=== PATIENT | female | born 1950 | race Caucasian/White ===

== ENCOUNTER → 2019-10-18 12:26 | Outpatient (CLI) | payer MEDICARE, SELFPAY ==
--- NOTE | ~2019-10-18 | MM_ITS ---
EXAMINATION: MM screening kaylynn BI w nancy HISTORY: Screening mammogram TECHNIQUE: Craniocaudal and mediolateral oblique 3-D tomosynthesis images were obtained and synthetic 2-D images were generated. CAD analysis was submitted and interpreted. COMPARISON: 06/04/2018, 02/17/2017, 01/19/2016 and lateral digital screening mammogram examinations BREAST PARENCHYMAL COMPOSITION: The breasts are almost entirely fatty. FINDINGS: There is no evidence of suspicious mass, calcification, or architectural distortion to sugg est malignancy in either breast. There has been no suspicious interval change. IMPRESSION: 1. No mammographic evidence of malignancy. 2. Recommend routine screening mammography in one year. BI-RADS Category 1: Negative Reviewed, dictated and finalized at location A. ILE SCREEN MAKER
== END ==
PROVIDERS: PCP Internal Medicine; Visit Provider Internal Medicine
DX: Z12.31 Encounter for screening mammogram for malignant neoplasm of breast (principal)
CPT/HCPCS: 77063; 77067

== ENCOUNTER 2020-03-17 10:08 | Outpatient (CLI) | payer MEDICARE, SELFPAY ==
--- NOTE | ~2020-03-17 | CT_ITS ---
EXAMINATION: CT lung screening DATE: 03/17/2020 10:29 INDICATION: Personal history of tobacco dependence, current smoker with 50 pack year history TECHNIQUE: Computed tomography (CT) of the chest was performed without intravenous contrast. The dose -length product (DLP) was 341.87 mGy-cm. Automated exposure control and iterative reconstruction tech Analiza were employed. COMPARISON: None FINDINGS: There is moderate emphysema. Multiple pulmonary nodules are identified. The largest measure s 6 mm in the right lower lobe on image 53. There is mild dependent atelectasis. No focal airspace op acities are identified. There is no pleural effusion or pneumothorax. No pathologically enlarged thor acic lymph nodes are identified. The heart size is normal. There is calcified coronary artery atheros clerosis. Subendocardial fat deposition in the heart can be seen in the setting of prior myocardial i nfarction. Punctate calcifications in otherwise normal appearing liver and spleen likely represent he aled granulomatous disease. There is mild thoracic spondylosis. IMPRESSION: 1. Lung-RADS category 3: Probably benign. Followup with noncontrast low-dose chest CT in 6 months is recommended. Reviewed, dictated and finalized at location A. IMPRESSION: 1. Lung-RADS category 3: Probably benign. Followup with noncontrast low-dose ch est CT in 6 months is recommended.
[2020-03-17 11:19] LABS: Alanine Aminotransferase 20 U/L (4-35); Alkaline Phosphatase 80 U/L (38-126); Anion Gap 10.3 mmol/L (7-16); Aspartate Amino Transferase 22 U/L (14-36); Bilirubin,Total 0.6 mg/dL (0.2-1.3); Blood Urea Nitrogen 12 mg/dL (7-17); Calcium 9.6 mg/dL (8.4-10.2); Carbon Dioxide 29 mmol/L (22-30); Chloride 103 mmol/L (98-107); Cholesterol 163 mg/dL (0-200); Estimated Glomerular Filt Rate > 60; Glucose 105 mg/dL (65-105); HDL Direct 42 mg/dL; Potassium 4.3 mmol/L (3.4-5.0); Sodium 138 mmol/L (137-145); Triglycerides 135 mg/dL (<150)
[2020-03-17 11:30] LABS: LDL Cholesterol Direct 92 mg/dL
== END 2020-03-17 10:09 | disposition home or self-care (01) ==
LOC: ANHIMG 10:10
PROVIDERS: PCP Internal Medicine; Visit Provider Internal Medicine
DX: I10 Essential (primary) hypertension (principal); Z72.0 Tobacco use; Z13.6 Encounter for screening for cardiovascular disorders; Z13.220 Encounter for screening for lipoid disorders; Z87.891 Personal history of nicotine dependence
CPT/HCPCS: 36415; 80053; 80061; G0297

== ENCOUNTER 2020-09-15 09:13 | Outpatient (CLI) | payer MEDICARE, SELFPAY ==
--- NOTE | ~2020-09-15 | CT_ITS ---
EXAMINATION: CT diagnostic chest wo con EXAM DATE: 09/15/2020 09:25 INDICATION: R91.1 - Solitary pulmonary nodule cough. TECHNIQUE: Spiral CT of the chest without contrast. Axial, coronal and sagittal images were reviewe d. Coronal maximum intensity pixel images of chest reviewed. The dose-length product (DLP) for this examination was 358.55 mGy-cm. The exposure was tailored according to patient size (auto mA exposur e control), and iterative reconstruction (ASIR) was used as additional dose reduction technique. Comp arison is made to prior examination from 03/17/2020. FINDINGS: Again there is pleural-based right lower lobe nodule, image 52, unchanged. Right middle lo be 5 mm nodule, image 67 unchanged. Scattered smaller pulmonary nodules also unchanged. There is mil d to moderate emphysema. Left anterior descending coronary artery stent or calcifications. Trace per icardial effusion. No pleural effusion. Tracheobronchial tree is patent. There is no mediastinal, hilar or axillary lymphadenopathy. There is no pneumothorax. Heart normal in size. Liver and sp lenic granulomata. The bones are unremarkable. IMPRESSION: 1. Stable scattered lung nodules likely granulomata. 2. Mild to moderate emphysema. Reviewed, dictated and finalized at location B. N RESOURCES EXECUTIVE
== END 2020-09-15 09:14 | disposition home or self-care (01) ==
LOC: ANHIMG 09:14
PROVIDERS: PCP Internal Medicine; Visit Provider Internal Medicine
DX: R91.1 Solitary pulmonary nodule (principal); J43.9 Emphysema, unspecified
CPT/HCPCS: 71250

== ENCOUNTER 2021-05-20 12:59 | Outpatient (CLI) | payer MEDICARE, SELFPAY ==
--- NOTE | ~2021-05-20 | DEXA_ITS ---
Bone Density Report Name: Yue Weinstein Age: 70 Sex: Female Ethnicity: White Date of : 1950 Indication: postmenopausal; Referring Provider: BRENT HAND Study: Bone densitometry was performed. Exam Date: May 20, 2021 Accession number: [id number] Bone Density: Region BMD T-score Z-score Classification AP Spine (L1-L4) 0.716 -3.0 -1.0 Osteoporosis Femoral Neck (Left) 0.528 -2.9 -1.2 Osteoporosis Total Hip (Left) 0.712 -1.9 -0.5 Osteopenia Total Hip Bilateral Avg 0.695 -2.1 -0.6 Osteopenia Femoral Neck (Right) 0.564 -2.6 -0.9 Osteoporosis Total Hip (Right) 0.678 -2.2 -0.7 Osteopenia World Health Organization criteria for BMD impression classify patients as: Normal (T-score at or above -1.0), Osteopenia (T-score between -1.0 and -2.5), or Osteoporosis (T-score at or below -2.5). 10-year Fracture Risk: FRAX not reported because: Some T-score for Spine Total or Hip Total or Femoral Neck at or below -2.5 Clinical Information Provided by Patient: Smokes Has used the following medications: Vitamin D, Calcium Patient maximum height was 63 Menopause Age: 52 No regular weight bearing exercise Does not regularly consume dairy products Onset of menses at age 18 Number of children 2 Impression: The patient has osteoporosis, based on the Total Spine T-score. The patient has risk factors, including: smoking. Discussion: INCREASED RISK OF FRACTURE. BONE DENSITY IS UNDESIRABLY LOW AT ONE OR MORE SKELETAL SITES, CONSISTENT WITH POSTMENOPAUSAL OSTEOPOROSIS. This patient's lowest T-score meets the World Health Organization's (WHO) criteria for osteoporosis at one or more sites (T-score -2.5 or below). In untreated patients, the risk of osteoporotic fracture increases approximately two-fold for each 1.0 SD decrease in T-score. Low bone density is not the only risk factor for fracture; also consider factors such as patient's age, frailty or poor health, risk of falling, risk of injury, previous osteoporotic fracture, family history of osteoporosis, cigarette smoking, low body weight, etc. Not everyone with low bone mineral density has osteoporosis; osteomalacia and other metabolic bone disorders should also be considered. Patients who have osteoporosis should be evaluated for specific diseases and conditions (secondary causes) that may cause or contribute to bone loss. The [place] [employer] Endocrinologists (AACE) and National Osteoporosis Foundation (NOF) recommend pharmacologic intervention for all postmenopausal women whose T-score is in this range. The patient should follow a healthful lifestyle (good nutrition with adequate calcium and vitamin D, and appropriate weight-bearing exercise). Follow-Up: Consider a repeat BMD and Vertebral Fracture Assessment (VFA) exam in 2 years or sooner if medically nec
== END 2021-05-20 13:00 | disposition home or self-care (01) ==
LOC: ANHIMG 13:01
PROVIDERS: PCP Internal Medicine; Visit Provider Internal Medicine
DX: Z78.0 Asymptomatic menopausal state (principal); M81.0 Age-related osteoporosis without current pathological fracture
CPT/HCPCS: 77080

== ENCOUNTER 2021-12-13 15:16 | Inpatient (IN) | payer MEDICARE, SELFPAY ==
[2021-12-13] VITALS (34 sets, daily range): BP systolic 126–182; BP diastolic 64–102; PULSE 49–66; RESP 14–31; TEMP 36.1–37.2; O2SAT 85–98; BMI 39.2
--- NOTE | ~2021-12-13 | XR_ITS ---
EXAMINATION: XR chest 1V portable DATE: 12/14/2021 05:39 INDICATION: New oxygen requirements. Cough. TECHNIQUE: frontal view of the chest was obtained. COMPARISON: Chest CT dated 09/15/2020 FINDINGS: Diffuse increased interstitial pattern and favor pulmonary edema over pneumonia. Mild streaky opaciti es in the right mid and bilateral lower lung zones which could represent either atelectasis or additi onal more prominent pulmonary edema. No pneumothorax or pleural effusion. The cardiomediastinal silho uette is within normal limits for AP technique with prominent left paracardial fat pad. IMPRESSION: 1. Increasing diffuse interstitial pattern and favor pulmonary edema over pneumonia. Reviewed, dictated and finalized at location A. IMPRESSION: 1. Increasing diffuse interstitial pattern and favor pulmonary edema over pneum onia.
--- NOTE | ~2021-12-13 | CT_ITS ---
EXAMINATION: CT abdomen pelvis w con DATE: 12/13/2021 19:46 INDICATION: abd pain, n/v TECHNIQUE: Computed tomography (CT) of the abdomen and pelvis was performed with 100 mL Omnipaque-350 intravenous contrast. Automated exposure control and iterative reconstruction technique were employe d. The dose-length product was 1294.59 mGy-cm. COMPARISON: None FINDINGS: Lower thorax: Coronary artery calcifications. Bibasilar scar/atelectasis. Emphysematous change. Liver: Granulomatous calcifications. Biliary/Gallbladder: Gallbladder is normal. No bile duct dilation. Spleen: Granulomatous calcifications. Pancreas: No mass or duct dilation. Adrenals:No mass. Kidneys: Several right renal hypodensities that are too small to characterize but most likely represe nt cysts. No calcification or hydronephrosis. GI tract: No small or large bowel dilation. Normal appendix. Diverticulosis without diverticulitis. Mesentery/Peritoneum: No ascites, mass, or free air. Retroperitoneum: No mass. Pelvis: Pelvic organs are within normal limits. Bones/Soft Tissues: Soft tissues and body wall unremarkable. No acute osseous finding. Additional Findings: None. IMPRESSION: No acute abdominopelvic process. Reviewed, dictated and finalized at location K.
[2021-12-13 15:54] LABS: Basophils Percent Auto 0.5 % (0.2-1.2); Eosinophils Percent Auto 0.5 % (0-4.4); Hematocrit 48.6 % (37.0-47.0); Hemoglobin 15.6 g/dL (12.0-15.0); Immature Granulocyte Absolute 0.03 K/mm3 (0.00-0.031); Immature Granulocyte Percent A 0.4 % (0-0.5); Lymphocytes Absolute Auto 0.97 K/mm3 (0.9-3.2); Lymphocytes Percent Auto 12.5 % (18.3-44.2); Mean Corpuscular HGB Conc 32.1 g/dl (32-36); Mean Corpuscular Hemoglobin 29.9 pg (26-34); Mean Corpuscular Volume 93.1 fl (80-100); Mean Platelet Volume 9.7 fl (7.4-10.4); Monocytes Absolute Auto 0.3 K/mm3 (0.1-0.6); Monocytes Percent Auto 4.2 % (2.6-8.5); Neutrophils Absolute Auto 6.4 K/mm3 (1.3-6.7); Neutrophils Percent Auto 81.9 % (45.5-73.1); Platelet Count Result 238 k/mm3 (150-375); Red Blood Count 5.22 M/mm3 (4.2-5.4); Red Cell Distribution Width 12.8 % (11.5-14.5); White Blood Count 7.8 K/mm3 (4.5-10.0)
--- NOTE | 2021-12-13 18:28 | ED.NAVMDI ---
HPI - Nausea/Vomiting/Diarrhea General Chief complaint: Nausea/Vomiting/Diarrhea Stated complaint: nausea, back pain Time Seen by Provider: 12/13/21 18:05 Source: RN notes reviewed History of Present Illness HPI Narrative: Patient presents emergency room from home for abdominal pain and vomiting. Patient states symptoms began 2 days ago. States she has abdominal pain across the upper abdomen described as aching and cramping in nature radiates through to her back states associated numerous episodes of nausea vomiting and been unable to keep anything down. She denies any fevers or chills chest pain, shortness of breath, diarrhea or any other symptoms. States she did not take any medication for the symptoms today Related Data Home Medications Medication Instructions Recorded Confirmed aspirin 81 mg tablet,delayed 81 mg PO DAILY 02/26/20 10/12/21 release Saccharomyces boulardii 250 mg 250 mg PO DAILY cap 03/26/21 10/12/21 capsule Allergies Allergy/AdvReac Type Severity Reaction Status Date / Time No Known Allergies Allergy Verified 10/12/21 11:03 Review of Systems Review of Systems: Gen.: Denies fevers or chills ENT: Denies congestion Respiratory: Denies shortness of breath or cough CV: Denies chest pain or palpitations GI: See HPI denies burning, urgency, frequency or hematuria Musculoskeletal: Denies back pain or muscle pain Neuro: Denies numbness, tingling, weakness or focal weakness Skin: Denies rash Except as documented, all other systems reviewed and negative [facility] [place] Past Medical History Medical History Chronic GERD Hypertension Lung nodule Social History Social History Smoking packs per day: 2 Smoking cigarettes per day: 40.0 Years smoked: 50 Smoking pack-years: 100.00 Tobacco type: cigarettes Second hand tobacco smoke exposure: Yes Smoking end date: 03/14/21 Alcohol intake: current Alcohol use details: Social Substance use: current Substance use type: marijuana Gender identity (if verbalized by the patient): Female Sexual Orientation (if Verbalized by the Patient): Straight or Heterosexual Spiritual care concerns: No Agree to blood products: Yes Exam Narrative: APPEARANCE: No acute distress, nontoxic, resting in bed HEENT: Normocephalic, atraumatic, OMM RESPIRATORY: No respiratory distress, clear to auscultation bilaterally with no rhonchi wheezing or rales CARDIOVASCULAR: RRR s murmur ABDOMINAL: Soft nondistended tender palpation epigastric and right upper quadrant left upper quadrant no tenderness in right lower quadrant left lower quadrant no rebound or guarding MUSCULOSKELETAl: Moves all extremities. No clubbing, cyanosis or edema. NEURO: Awake and alert. Following commands, speech normal, no focal deficits SKIN:: Warm, dry. Normal Color PSYCHIATRIC: Normal affect/mood Course Course Emergency Course: Patient continues to have nausea vomiting following Zofran and Phenergan will admit at this time Discussed Dr. Franks agrees with admission Discussed with patient and family results of workup and diagnosis. Discussed need for admission. Patient and family understand and agree to current treatment plan Vital Signs Vital signs: Vital Signs Temperature 97.0 F L 12/13/21 15:36 Pulse Rate 64 12/13/21 15:36 Respiratory Rate 16 12/13/21 15:36 Blood Pressure 176/88 H 12/13/21 15:36 Pulse Oximetry 93 12/13/21 15:36 Temperature 98.9 F 12/13/21 17:52 Pulse Rate 58 L 12/13/21 17:52 Respiratory Rate 20 12/13/21 17:52 Blood Pressure 163/85 H 12/13/21 17:52 Pulse Oximetry 90 12/13/21 17:52 MDM - Nausea/Vomiting/Diarrhea Lab Data Result diagrams: 12/13/21 15:47 12/13/21 18:31 Labs: Lab Results 12/13/21 12/13/21 12/13/21 Range/Units 15:47 18:31 18:31 WBC 7.8 (4.5-10.0) K/mm
[2021-12-13] MEDS: SODIUM CHLORIDE 0.9% IV 1,000 ML 999 ML IV CONT ×2 (18:38→21:42)
[2021-12-13] MEDS: ONDANSETRON INJ 4 MG/2 ML VIAL IV PUSH (18:38)
[2021-12-13 18:50] LABS: Add Urine Microscopic? YES; Appearance Urine Slightly Cloudy (Clear); Bilirubin Urine 1+ (Negative); Blood Urine Trace (Negative); Color Urine Dark Yellow (Yellow); Glucose Urine UA Negative (Negative); Ketones Urine 3+ mg/dL (Negative); Leukocyte Esterase Ur Negative LEU/UL (Negative); Nitrate Urine Negative (Negative); Protein Urine 2+ mg/dL (Negative); Specific Grav Ur 1.025 (1.001-1.035); Urobilinogen Urine 0.2 mg/dL (<2.0)
[2021-12-13 18:54] LABS: Alanine Aminotransferase 22 U/L (4-35); Albumin Level 4.3 g/dL (3.5-5.1); Alkaline Phosphatase 97 U/L (38-126); Anion Gap 10 mmol/L (8-16); Aspartate Amino Transferase 29 U/L (14-36); Bilirubin,Total 0.9 mg/dL (0.2-1.3); Blood Urea Nitrogen 10 mg/dL (7-17); Calcium 9.3 mg/dL (8.4-10.2); Carbon Dioxide 26 mmol/L (22-30); Chloride 102 mmol/L (98-107); Estimated CRCL calculation 71 ml/min; Estimated Glomerular Filt Rate > 60; Glucose 172 mg/dL (65-110); Lipase 30 U/L (23-300); Potassium 3.9 mmol/L (3.4-5.0); Sodium 138 mmol/L (137-145)
[2021-12-13 19:37] LABS: Bacteria Urine 1+ /hpf; Mucus Urine Moderate /lpf; Squamous Epithelial Cell Urine Rare /hpf (Few); WBC Urine 0-3 /hpf
--- NOTE | 2021-12-13 21:10 | ECG_ITS ---
Measurements Intervals [place] Rate: 63 P: 62 NM: 188 QRS: -26 QRSD: 116 T: 53 QT: 439 QTc: 452 Interpretive Statements SINUS RHYTHM WITH SINUS ARRHYTHMIA INCOMPLETE RIGHT BUNDLE BRANCH BLOCK BORDERLINE T WAVE ABNORMALITY- ANTERIOR LEADS BASELINE ARTIFACT- I, II, III, AVR, AVL, AVF, V4 BORDERLINE ECG Electronically Signed On 12-14-2021 6:04:50 CDT by Richard Fowler D.O.
[2021-12-13] MEDS: PROMETHAZINE HCL 25 MG/ML AMPUL 12.5 MG IV PUSH (21:41)
[2021-12-13] MEDS: SODIUM CHLORIDE 0.9% IV 100 ML 500 ML (21:43)
[2021-12-13] MEDS: PANTOPRAZOLE SODIUM IV 40 MG VIAL IV PUSH (21:45)
--- NOTE | 2021-12-13 23:50 | ADMGEN ---
This patient, Yue Weinstein, was admitted to 3 [facility] Room 331-01. Patient/family oriented to hospital policies and general routines including ID bracelet, bed and alarms, visiting hours, pain management, procedures, bathroom and other care routines, personal items, smoking policy, room service/diet, and visiting hours. Information on how to activate the Rapid Response Team has been discussed. Patient/Family are encouraged to report perceived risks to care and to ask questions if they do not understand what they are told or what they should do.
[2021-12-14] VITALS (8 sets, daily range): BP systolic 135–151; BP diastolic 62–72; PULSE 60–64; RESP 18–20; TEMP 37–38.2; O2SAT 83–96
[2021-12-14] MEDS: SODIUM CHLORIDE 0.9% IV 1,000 ML 125 ML IV CONT ×3 (00:42→17:51)
--- NOTE | 2021-12-14 01:46 | PM.IMHP ---
H&P: HPI History of Present Illness Date/Time: 12/14/21 01:46 Chief Complaint: Nausea/Vomiting Narrative: 71 yo F PMHx of morbid obesity, depression/anxiety, tobacco abuse, marijuana use, HTN, GERD, insomnia. Presents with n/v since 12/11. Patient states she woke up feeling nauseous, and then threw up after eating that day. She has thrown up food a total of four times, and then after that it has just been dry-heaving and bile looking fluid. She does admit to smoking marijuana daily, and had used some on Monday and Monday. Patient denies fevers/chills, SOB, cough, CP, palpitations, diarrhea, constipation, dysuria, hematuria. Admits to epigastric tenderness. In ED, patients labs unremarkable. CT A/P did not show any acute process. EKG NSR. Patient was given IVF and placed on mIVF. Was also given zofran and compazine. Patient had a vomiting episode in the ED. Review of Systems Review of Systems: All systems reviewed & are unremarkable except as noted in HPI and below PMFSH Past Medical History Medical History Chronic GERD Hypertension Lung nodule Social History Social History Smoking packs per day: 1.5 Smoking cigarettes per day: 30.0 Years smoked: 50 Smoking pack-years: 75.00 Smoking status: Heavy tobacco smoker Tobacco type: cigarettes Second hand tobacco smoke exposure: Yes Smoking end date: 03/14/21 Alcohol intake: never Alcohol use details: Social Substance use: current Substance use type: marijuana Gender identity (if verbalized by the patient): Female Sexual Orientation (if Verbalized by the Patient): Straight or Heterosexual Spiritual care concerns: No Agree to blood products: Yes Meds Home Medications and Allergies Home Medications Medication Instructions Recorded Confirmed Type aspirin 81 mg tablet,delayed 81 mg PO DAILY 02/26/20 12/13/21 History release lisinopril 10 1 tablet PO DAILY #90 tablet 09/08/21 12/13/21 Rx mg-hydrochlorothiazide 12.5 mg tablet loratadine 10 mg capsule 10 mg PO DAILY PRN #90 cap 09/29/21 12/13/21 Rx zolpidem 10 mg tablet 10 mg PO QHS #30 tablet 09/29/21 12/13/21 Rx naproxen 500 mg tablet 500 mg PO BID PRN #60 tablet 11/19/21 12/13/21 Rx cholecalciferol (vitamin D3) 50 50 mcg PO DAILY #90 tablet 12/10/21 12/13/21 Rx mcg (2,000 unit) tablet escitalopram oxalate 5 mg PO DAILY 12/13/21 12/13/21 History omeprazole 40 mg PO DAILY 12/13/21 12/13/21 History polyethylene glycol 3350 [Miralax] 17 g PO DAILY PRN 12/13/21 12/13/21 History Allergies Allergy/AdvReac Type Severity Reaction Status Date / Time No Known Allergies Allergy Verified 10/12/21 11:03 Vital Signs Vital Signs - 24 hr 12/13/21 15:36 12/13/21 17:50 12/13/21 17:52 Temperature 97.0 F L 98.9 F Pulse Rate 64 56 L Respiratory Rate 16 25 H Blood Pressure 176/88 H 163/85 H Pulse Oximetry 93 86 L 89 L 12/13/21 18:00 12/13/21 18:02 12/13/21 18:15 Temperature Pulse Rate 56 L 49 L 58 L Respiratory Rate 29 H 27 H 26 H Blood Pressure 154/93 H Pulse Oximetry 96 96 94 12/13/21 18:17 12/13/21 18:48 12/13/21 19:00 Temperature Pulse Rate 54 L 61 Respiratory Rate 24 H 14 Blood Pressure 158/66 H Pulse Oximetry 94 89 L 92 12/13/21 19:15 12/13/21 19:17 12/13/21 19:48 Temperature Pulse Rate 62 61 Respiratory Rate 26 H 17 Blood Pressure 132/102 H Pulse Oximetry 91 91 89 L 12/13/21 20:00 12/13/21 20:02 12/13/21 20:15 Temperature Pulse Rate Respiratory Rate Blood Pressure 156/64 H Pulse Oximetry 89 L 88 L 90 12/13/21 20:17 12/13/21 20:30 12/13/21 20:32 Temperature Pulse Rate Respiratory Rate Blood Pressure 129/71 126/79 Pulse Oximetry 90 89 L 89 L 12/13/21 20:45 12/13/21 20:47 12/13/21 21:48 Temperature Pulse Rate Respiratory Rate Blood Pressure 139/68 Pulse Oximet
[2021-12-14] MEDS: ONDANSETRON INJ 4 MG/2 ML VIAL IV PUSH ×3 (02:19→20:24)
[2021-12-14] MEDS: ZOLPIDEM TARTRATE (*CRX) 5 MG TABLET 10 MG PO ×2 (02:19→20:24)
[2021-12-14 06:11] LABS: Basophils Percent Auto 0.2 % (0.2-1.2); Hematocrit 42.1 % (37.0-47.0); Hemoglobin 13.8 g/dL (12.0-15.0); Immature Granulocyte Absolute 0.04 K/mm3 (0.00-0.031); Immature Granulocyte Percent A 0.3 % (0-0.5); Lymphocytes Absolute Auto 0.97 K/mm3 (0.9-3.2); Lymphocytes Percent Auto 8.2 % (18.3-44.2); Mean Corpuscular HGB Conc 32.8 g/dl (32-36); Mean Corpuscular Hemoglobin 29.9 pg (26-34); Mean Corpuscular Volume 91.3 fl (80-100); Mean Platelet Volume 10.3 fl (7.4-10.4); Monocytes Absolute Auto 0.7 K/mm3 (0.1-0.6); Monocytes Percent Auto 5.8 % (2.6-8.5); Neutrophils Absolute Auto 10.1 K/mm3 (1.3-6.7); Neutrophils Percent Auto 85.5 % (45.5-73.1); Platelet Count Result 245 k/mm3 (150-375); Red Blood Count 4.61 M/mm3 (4.2-5.4); Red Cell Distribution Width 12.8 % (11.5-14.5); White Blood Count 11.8 K/mm3 (4.5-10.0)
[2021-12-14 06:21] LABS: Alanine Aminotransferase 30 U/L (4-35); Albumin Level 3.6 g/dL (3.5-5.1); Alkaline Phosphatase 79 U/L (38-126); Anion Gap 7 mmol/L (8-16); Aspartate Amino Transferase 32 U/L (14-36); Bilirubin,Total 0.5 mg/dL (0.2-1.3); Blood Urea Nitrogen 8 mg/dL (7-17); Calcium 8.5 mg/dL (8.4-10.2); Carbon Dioxide 25 mmol/L (22-30); Chloride 104 mmol/L (98-107); Estimated CRCL calculation 71 ml/min; Estimated Glomerular Filt Rate > 60; Glucose 135 mg/dL (65-110); Potassium 3.7 mmol/L (3.4-5.0); Sodium 136 mmol/L (137-145)
[2021-12-14 08:01] LABS: Hemoglobin A1C 5.5 % (<5.7)
[2021-12-14] MEDS: ENOXAPARIN 40 MG/0.4 ML SYRINGE SUB-Q (08:37)
[2021-12-14] MEDS: PANTOPRAZOLE SODIUM IV 40 MG VIAL IV PUSH (08:39)
[2021-12-14] MEDS: hydroCHLOROthiazide 12.5 MG CAPSULE PO (09:26)
[2021-12-14] MEDS: ESCITALOPRAM OXALATE 5 MG TABLET PO (09:26)
[2021-12-14] MEDS: ASPIRIN 81 MG ENTERIC TABLET PO (09:26)
[2021-12-14] MEDS: CHOLECALCIFEROL 1,000 UNITS TABLET 2000 UNITS PO (09:27)
[2021-12-14] MEDS: lisinopriL 10 MG TABLET PO (09:27)
--- NOTE | 2021-12-14 11:26 | PM.EVENT ---
Event Note Event Note Event Note: Same Day follow up rounding note pt admitted for intractable nausea and vomiting suspect cannabinoid induced hyperemesis syndrome. Will keep zofran prn and also add capsaicin cream to abdomen BID prn. Advised marijuana cessation. Will continue mIVF NS 125 cc/hr and advance diet as tolerated continue lexapro continue IV protonix continue lisinopril/HCTZ continue ambien pt doing ok still w nausea will try phenergan -> pt reports improvement of nausea cont current care possible dc home tomorrow
[2021-12-14] MEDS: PROMETHAZINE HCL 25 MG/ML AMPUL 12.5 MG IV PUSH ×2 (12:09→16:13)
[2021-12-14] MEDS: TOLNAFTATE 1% POWDER 45 GM BTL 1 APPLIC TOPICAL (20:24)
[2021-12-15] MEDS: SODIUM CHLORIDE 0.9% IV 1,000 ML 125 ML IV CONT ×3 (02:38→23:19)
[2021-12-15 04:58] VITALS: BP 157/77; PULSE 67; RESP 18; TEMP 37.4; O2SAT 93
[2021-12-15 05:58] LABS: Basophils Percent Auto 0.2 % (0.2-1.2); Hematocrit 40.5 % (37.0-47.0); Hemoglobin 13.4 g/dL (12.0-15.0); Immature Granulocyte Absolute 0.11 K/mm3 (0.00-0.031); Immature Granulocyte Percent A 0.7 % (0-0.5); Lymphocytes Absolute Auto 1.27 K/mm3 (0.9-3.2); Lymphocytes Percent Auto 8.7 % (18.3-44.2); Mean Corpuscular HGB Conc 33.1 g/dl (32-36); Mean Corpuscular Hemoglobin 30.4 pg (26-34); Mean Corpuscular Volume 91.8 fl (80-100); Monocytes Absolute Auto 1.3 K/mm3 (0.1-0.6); Monocytes Percent Auto 9.1 % (2.6-8.5); Neutrophils Absolute Auto 11.9 K/mm3 (1.3-6.7); Neutrophils Percent Auto 81.3 % (45.5-73.1); Platelet Count Result 221 k/mm3 (150-375); Red Blood Count 4.41 M/mm3 (4.2-5.4); Red Cell Distribution Width 12.7 % (11.5-14.5); White Blood Count 14.7 K/mm3 (4.5-10.0)
[2021-12-15 06:09] LABS: Lactic Acid Reflex 0.9 mmol/L (0.7-2.0)
[2021-12-15 06:12] LABS: Anion Gap 3 mmol/L (8-16); Blood Urea Nitrogen 11 mg/dL (7-17); Calcium 8.5 mg/dL (8.4-10.2); Carbon Dioxide 29 mmol/L (22-30); Chloride 102 mmol/L (98-107); Estimated CRCL calculation 71 ml/min; Estimated Glomerular Filt Rate > 60; Glucose 113 mg/dL (65-110); Lipase 79 U/L (23-300); Magnesium 1.8 mg/dL (1.6-2.3); Potassium 3.6 mmol/L (3.4-5.0); Sodium 134 mmol/L (137-145)
[2021-12-15 08:40] VITALS: O2SAT 93
[2021-12-15] MEDS: TOLNAFTATE 1% POWDER 45 GM BTL 1 APPLIC TOPICAL ×2 (08:44→22:06)
[2021-12-15] MEDS: PANTOPRAZOLE SODIUM IV 40 MG VIAL IV PUSH ×2 (08:44→16:44)
[2021-12-15 08:47] VITALS: O2SAT 94
[2021-12-15] MEDS: ONDANSETRON INJ 4 MG/2 ML VIAL IV PUSH (08:48)
--- NOTE | 2021-12-15 10:06 | PM.IMPN ---
Progress Note: A&P Assessment and Plan (1) Intractable nausea and vomiting: Code(s): R11.2 - Nausea with vomiting, unspecified Status: Acute (2) Abdominal pain, acute, epigastric: Code(s): R10.13 - Epigastric pain Status: Acute (3) Depression: Code(s): F32.A - Depression, unspecified Status: Acute (4) Chronic low back pain: Code(s): M54.5 - Low back pain; G89.29 - Other chronic pain Status: Acute (5) Chronic GERD: Code(s): K21.9 - Gastro-esophageal reflux disease without esophagitis Status: Acute (6) Hypertension: Code(s): I10 - Essential (primary) hypertension Status: Acute (7) BMI 40.0-44.9, adult: Code(s): Z68.41 - Body mass index [BMI] 40.0-44.9, adult Status: Acute (8) Tobacco abuse: Code(s): Z72.0 - Tobacco use Status: Acute (9) Insomnia: Code(s): G47.00 - Insomnia, unspecified Status: Acute Additional Plan 12/14/21 pt admitted for intractable nausea and vomiting suspect cannabinoid induced hyperemesis syndrome. Will keep zofran prn and also add capsaicin cream to abdomen BID prn. Advised marijuana cessation. Will continue mIVF NS 125 cc/hr and advance diet as tolerated continue lexapro continue IV protonix continue lisinopril/HCTZ continue ambien pt doing ok still w nausea will try phenergan -> pt reports improvement of nausea cont current care possible dc home tomorrow 12/15/21 cont w nausea and intolerance to PO febrile overnight blood cultures add zosyn add carafate cont supportive care Subjective Date/time seen: 12/15/21 10:06 pt not feeling better, noted to have febrile episode overnight Exam Narrative: APPEARANCE: No acute distress, ill appearing, resting in bed HEENT: Normocephalic, atraumatic, MMM RESPIRATORY: No respiratory distress, clear to auscultation bilaterally with no rhonchi wheezing or rales CARDIOVASCULAR:S1S2 RRR ABDOMINAL: epigastric tenderness MUSCULOSKELETAl: Moves all extremities. No clubbing, cyanosis or edema. NEURO: Awake and alert. Following commands, speech normal, no focal deficits SKIN:: Warm, dry. Normal Color PSYCHIATRIC: Normal affect/mood Objective Data Vital Signs Vital Signs: Vital Signs - 24 hr 12/14/21 14:00 12/14/21 20:00 12/14/21 22:00 Temperature 100.8 F H 99.5 F Pulse Rate 60 64 Respiratory Rate 20 18 Blood Pressure 140/69 135/62 Pulse Oximetry 93 95 95 12/15/21 04:58 12/15/21 08:47 Temperature 99.4 F Pulse Rate 67 Respiratory Rate 18 Blood Pressure 157/77 H Pulse Oximetry 93 94 Intake/Output Intake/Output: Intake & Output 12/12/21 12/13/21 12/14/21 12/15/21 23:59 23:59 23:59 23:59 Intake Total 2200 2990 1050 Output Total 300 Balance 2200 2690 1050 Meds/Results Medications: Active Medications Generic Name Dose Route Start Last Admin Trade Name Freq PRN Reason Stop Dose Admin Aspirin 81 mg 12/14/21 09:00 12/14/21 09:26 Aspirin 81 Mg Enteric Tablet PO 81 mg DAILY VIANEY Administration Capsaicin 1 applic 12/14/21 01:41 Capsaicin 0.025% Cream 60 Gm Tube TOPICAL Q8H PRN pain Enoxaparin Sodium 40 mg 12/14/21 09:00 12/14/21 08:37 Enoxaparin 40 Mg/0.4 Ml Syringe SUB-Q 40 mg DAILY VIANEY Administration Escitalopram Oxalate 5 mg 12/14/21 09:00 12/14/21 09:26 Escitalopram Oxalate 5 Mg Tablet PO 5 mg DAILY VIANEY Administration Hydrochlorothiazide 12.5 mg 12/14/21 09:00 12/14/21 09:26 Hydrochlorothiazide 12.5 Mg Capsule PO 12.5 mg QAM VIANEY Administration Sodium Chloride 1,000 mls @ 125 mls/hr 12/13/21 21:10 12/15/21 02:38 Normal Saline Iv IV CONT 125 mls/hr .Q8H VIANEY Administration Piperacillin/Tazobactam/Dextrose 3.375 gm in 50 mls @ 100 mls/hr 12/15/21 10:05 Zosyn 3.375 Gm/D5w 50ml Pm IVPB Q6HR VIANEY Lisinopril 10 mg 12/14/21 09:00 12/14/21 09:27 Lisinopril 10 Mg Tablet PO 10 mg QAM VIANEY Administration Ond
[2021-12-15] MEDS: ENOXAPARIN 40 MG/0.4 ML SYRINGE SUB-Q (10:13)
[2021-12-15] MEDS: PROMETHAZINE HCL 25 MG/ML AMPUL 12.5 MG IV PUSH (10:18)
[2021-12-15 10:34] LABS: CRP 1.9 mg/dL (<1.0)
[2021-12-15 10:56] LABS: Erythrocyte Sedimentation Rate 12 mm/hr (0-20)
[2021-12-15] MEDS: lisinopriL 10 MG TABLET PO (11:55)
[2021-12-15] MEDS: ASPIRIN 81 MG ENTERIC TABLET PO (11:55)
[2021-12-15] MEDS: hydroCHLOROthiazide 12.5 MG CAPSULE PO (11:55)
[2021-12-15] MEDS: SUCRALFATE SUSP 100 MG/ML 10 ML UDC 1000 MG PO ×3 (11:55→22:06)
[2021-12-15] MEDS: ESCITALOPRAM OXALATE 5 MG TABLET PO (11:55)
[2021-12-15] MEDS: CHOLECALCIFEROL 1,000 UNITS TABLET 2000 UNITS PO (11:55)
[2021-12-15 14:00] VITALS: BP 143/66; PULSE 88; RESP 18; TEMP 37.6; O2SAT 93
[2021-12-15 22:00] VITALS: BP 163/73; PULSE 60; RESP 20; TEMP 37.7; O2SAT 91
[2021-12-15] MEDS: ZOLPIDEM TARTRATE (*CRX) 5 MG TABLET 10 MG PO (22:06)
[2021-12-15 22:13] VITALS: TEMP 36.8
[2021-12-15 22:57] LABS: SARS-CoV-2 RNA PCR Negative
[2021-12-16 05:44] VITALS: BP 129/87; PULSE 114; RESP 20; TEMP 37; O2SAT 90
[2021-12-16] MEDS: SUCRALFATE SUSP 100 MG/ML 10 ML UDC 1000 MG PO ×2 (06:01→12:17)
[2021-12-16 06:34] LABS: Basophils Percent Auto 0.3 % (0.2-1.2); Eosinophils Percent Auto 0.1 % (0-4.4); Hematocrit 40.7 % (37.0-47.0); Hemoglobin 13.8 g/dL (12.0-15.0); Immature Granulocyte Percent A 0.7 % (0-0.5); Lymphocytes Absolute Auto 1.49 K/mm3 (0.9-3.2); Lymphocytes Percent Auto 10.9 % (18.3-44.2); Mean Corpuscular HGB Conc 33.9 g/dl (32-36); Mean Corpuscular Hemoglobin 30.7 pg (26-34); Mean Corpuscular Volume 90.4 fl (80-100); Mean Platelet Volume 10.1 fl (7.4-10.4); Monocytes Absolute Auto 1.4 K/mm3 (0.1-0.6); Monocytes Percent Auto 9.9 % (2.6-8.5); Neutrophils Absolute Auto 10.7 K/mm3 (1.3-6.7); Neutrophils Percent Auto 78.1 % (45.5-73.1); Platelet Count Result 220 k/mm3 (150-375); Red Cell Distribution Width 12.4 % (11.5-14.5); White Blood Count 13.7 K/mm3 (4.5-10.0)
[2021-12-16 06:49] LABS: Anion Gap 5 mmol/L (8-16); Blood Urea Nitrogen 11 mg/dL (7-17); Calcium 8.5 mg/dL (8.4-10.2); Carbon Dioxide 31 mmol/L (22-30); Chloride 96 mmol/L (98-107); Estimated CRCL calculation 71 ml/min; Estimated Glomerular Filt Rate > 60; Glucose 106 mg/dL (65-110); Magnesium 1.8 mg/dL (1.6-2.3); Potassium 3.2 mmol/L (3.4-5.0); Sodium 132 mmol/L (137-145)
[2021-12-16 08:00] VITALS: O2SAT 93
[2021-12-16] MEDS: lisinopriL 10 MG TABLET PO (09:47)
[2021-12-16] MEDS: PANTOPRAZOLE SODIUM IV 40 MG VIAL IV PUSH (09:47)
[2021-12-16] MEDS: hydroCHLOROthiazide 12.5 MG CAPSULE PO (09:47)
[2021-12-16] MEDS: ESCITALOPRAM OXALATE 5 MG TABLET PO (09:47)
[2021-12-16] MEDS: CHOLECALCIFEROL 1,000 UNITS TABLET 2000 UNITS PO (09:47)
[2021-12-16] MEDS: ASPIRIN 81 MG ENTERIC TABLET PO (09:48)
[2021-12-16] MEDS: ENOXAPARIN 40 MG/0.4 ML SYRINGE SUB-Q (09:48)
[2021-12-16] MEDS: TOLNAFTATE 1% POWDER 45 GM BTL 1 APPLIC TOPICAL (09:54)
--- NOTE | 2021-12-16 12:49 | PM.DS ---
DS: Admitting Diagnosis Discharge Date 12/16/21 Admitting Diagnosis (1) Intractable nausea and vomiting: Code(s): R11.2 - Nausea with vomiting, unspecified Status: Acute (2) Depression: Code(s): F32.A - Depression, unspecified Status: Acute (3) Chronic GERD: Code(s): K21.9 - Gastro-esophageal reflux disease without esophagitis Status: Acute (4) Hypertension: Code(s): I10 - Essential (primary) hypertension Status: Acute (5) Insomnia: Code(s): G47.00 - Insomnia, unspecified Status: Acute DS: Discharge Diagnosis Discharge Diagnosis (1) Intractable nausea and vomiting: Code(s): R11.2 - Nausea with vomiting, unspecified Status: Acute (2) Abdominal pain, acute, epigastric: Code(s): R10.13 - Epigastric pain Status: Acute (3) Intertrigo: Code(s): L30.4 - Erythema intertrigo Status: Acute (4) Hypertension: Code(s): I10 - Essential (primary) hypertension Status: Acute (5) BMI 40.0-44.9, adult: Code(s): Z68.41 - Body mass index [BMI] 40.0-44.9, adult Status: Acute (6) Chronic GERD: Code(s): K21.9 - Gastro-esophageal reflux disease without esophagitis Status: Acute (7) Tobacco abuse: Code(s): Z72.0 - Tobacco use Status: Acute (8) Depression: Code(s): F32.A - Depression, unspecified Status: Acute (9) Gastritis: Code(s): K29.70 - Gastritis, unspecified, without bleeding Status: Acute DS: Summary Hospital Course Reason for hospitalization: intractable vomiting Hospital Course: 71 yo F admitted w N/V orignially believed to be hyperemesis sx associated w marijuana use. Unfortunately, pt developed fever on day 2 of hospitalization and her symptoms had not improved w IVFs, antiemetics, and supportive care. She was placed on Zosyn with rapid resolution of her symptoms. blood cultures grew skin contaminent, CT abd pelvis w/o acute findings, and CXR showed edema or PNA (pt without resp symptoms). Given her rapid response to Zosyn and down trending of WBCs, she was subsequently discharged home in stable condition on Augmentin to complete 10day course and to follow up w her PCP for ongoing care. Status at Discharge Functional status at discharge: independent ambulation Overall status at discharge: patient is back to baseline Time Spent with Patient Time attestation: Total time spent providing and/or coordinating discharge services: Time spent: Greater than 30 minutes Exam Narrative: APPEARANCE: No acute distress, ill appearing, resting in bed, obese HEENT: Normocephalic, atraumatic, MMM RESPIRATORY: No respiratory distress, clear to auscultation bilaterally with no rhonchi wheezing or rales CARDIOVASCULAR:S1S2 RRR ABDOMINAL: epigastric tenderness MUSCULOSKELETAL: Moves all extremities. No clubbing, cyanosis or edema. NEURO: Awake and alert. Following commands, speech normal, no focal deficits SKIN:: Warm, dry. Normal Color PSYCHIATRIC: Normal affect/mood DS: Data Data Completed and Pending Labs on day of discharge: Labs from last 24 hours 12/16/21 12/16/21 12/15/21 06:11 06:11 22:15 WBC 13.7 H RBC 4.50 Hgb 13.8 Hct 40.7 MCV 90.4 MCH 30.7 MCHC 33.9 RDW 12.4 Plt Count 220 MPV 10.1 Immature Gran % (Auto) 0.7 H Neut % (Auto) 78.1 H Lymph % (Auto) 10.9 L [place] % (Auto) 9.9 H Eos % (Auto) 0.1 Baso % (Auto) 0.3 Lymph # (Auto) 1.49 [place] # (Auto) 1.4 H Eos # (Auto) 0.0 Baso # (Auto) 0.0 Abs Immat Gran (auto) 0.10 H Absolute Neuts (auto) 10.7 H Absolute Nucleated RBC 0.0 Nucleated RBC % 0.0 Sodium 132 L Potassium 3.2 L Chloride 96 L Carbon Dioxide 31 H Anion Gap 5 L BUN 11 Creatinine 0.70 Estim Creat Clear Calc 71 Estimated GFR > 60 Glucose 106 Calcium 8.5 Magnesium 1.8 SARS-CoV-2 RNA (RT-PCR) Negative Prelim
--- NOTE | 2021-12-16 15:47 | PCCCNOTE ---
On 12/16/21, the student, [Sneha Begum], provided care and completed [facility] documentation on this patient. I have reviewed the student's documentation and agree with the findings.
== END 2021-12-16 14:05 | disposition home or self-care (01) | DRG 392 ==
LOC: ANHED 21:25 → ANH3MEDSUR 21:55
PROVIDERS: Hospitalist; Admitting Provider Internal Medicine; Emergency Provider Emergency Medicine; PCP Internal Medicine; Visit Provider Internal Medicine
DX: R11.2 Nausea with vomiting, unspecified (principal); Z68.41 Body mass index [BMI] 40.0-44.9, adult; F32.A Depression, unspecified; K21.9 Gastro-esophageal reflux disease without esophagitis; I10 Essential (primary) hypertension; G47.00 Insomnia, unspecified; F12.99 Cannabis use, unspecified with unspecified cannabis-induced disorder; K29.70 Gastritis, unspecified, without bleeding; L30.4 Erythema intertrigo; F17.210 Nicotine dependence, cigarettes, uncomplicated; Z79.82 Long term (current) use of aspirin; Z79.899 Other long term (current) drug therapy
CPT/HCPCS: 36415; 71045; 74177; 80048; 80053; 81001; 83036; 83605; 83690; 83735; 85025; 85652; 86140; 87040; 87147; 87181; 87186; 93005; 96361; 96365; 96372; 96375; 96376; 99285; A9270; C9113; C9803; G0378; J0131; J1650; J2405; J2543; J2550; J7030; U0003; U0005

== ENCOUNTER 2022-01-09 14:55 | Emergency (ER) | payer MEDICARE, SELFPAY ==
[2022-01-09] VITALS (20 sets, daily range): BP systolic 138–185; BP diastolic 81–104; PULSE 79–99; RESP 10–30; TEMP 36.8; O2SAT 81–97
--- NOTE | ~2022-01-09 | CT_ITS ---
EXAMINATION: CT BRAIN W/O DATE: 01/09/2022 15:37 INDICATION: Dizziness and headaches TECHNIQUE: Computed tomography (CT) of the head was performed without intravenous contrast. The dose- length product was 529.67 mGy-cm. Automated exposure control and iterative reconstruction technique w ere employed. COMPARISON: No prior studies for comparison. FINDINGS: Normal brain parenchymal volume for age. Normal lopez-white differentiation. No acute intrac ranial hemorrhage, infarction, mass or mass effect. No ventriculomegaly or midline shift. Midline sagittal images demonstrate a normal corpus callosum, c raniovertebral junction and sella turcica. Basilar cisterns are patent. Sinuses are unremarkable. Small left mastoid effusion. No depressed skull fractures. IMPRESSION: 1. No acute intracranial abnormality. Reviewed, dictated and finalized at location A.
--- NOTE | 2022-01-09 15:25 | ECG_ITS ---
Measurements Intervals [place] Rate: 77 P: 55 W[place]: 181 QRS: -70 QRSD: 136 T: 22 QT: 420 QTc: 477 Interpretive Statements SINUS RHYTHM RIGHT BUNDLE BRANCH BLOCK LEFT ANTERIOR FASCICULAR BLOCK BASELINE ARTIFACT- I, II, III, AVR, AVL, AVF, V1 ABNORMAL ECG Electronically Signed On 01-09-2022 20:24:33 CDT by Richard Fowler D.O.
--- NOTE | 2022-01-09 15:27 | ED.DIZZY ---
HPI - Dizziness General Chief Complaint: Dizziness <CLAUDE Conte Last Filed: 01/09/22 19:02> Stated Complaint: n/v, dizziness, ear pain <CLAUDE Conte Last Filed: 01/09/22 19:02> Time Seen by Provider: 01/09/22 15:09 <CLAUDE Conte Last Filed: 01/09/22 19:02> History of Present Illness HPI Narrative: Patient is a 71-year-old female with a history of high blood pressure, gastritis here for evaluation of dizziness over the past month. Patient states that the dizziness is episodic in nature, it is associated with nausea and vomiting. Dizziness is only present when she goes from lying down to standing. She reports room spinning sensation . Patient reports about 4 episodes of of dry heaving today, and one episode of vomiting non-bloody emesis. Dry heaving is associated with epigastric discomfort, but none at rest. She has attempted Compazine as prescribed by her PCP without much relief. That she has also developed some bilateral ear pain over the past week and endorses chronic tinnitus. Denies preceding illness, weakness, changes to speech, headaches, syncope, chest pain, shortness of breath, dysuria, hematuria, urgency, low back pain. Patient was admitted here last month for evaluation of abdominal pain and nausea/vomiting, CT abdomen pelvis was unremarkable, she did spike a fever during her hospital stay, but she was ultimately discharged with oral antibiotics. States that her abdominal pain has improved after following a BRAT diet and completing her course of antibiotics. <CLAUDE Conte Last Filed: 01/09/22 19:02> Related Data Home Medications: Home Medications Medication Instructions Recorded Confirmed aspirin 81 mg tablet,delayed 81 mg PO DAILY 02/26/20 12/22/21 release (Aspir-) escitalopram oxalate 10 mg tablet 5 mg PO DAILY 12/13/21 12/22/21 omeprazole 40 mg capsule,delayed 40 mg PO DAILY 12/13/21 12/22/21 release polyethylene glycol 3350 17 gram 17 g PO DAILY PRN Constipation 12/13/21 12/22/21 oral powder packet (Miralax) <CLAUDE Conte Last Filed: 01/09/22 19:02> Allergies/Adverse Reactions: Allergies Allergy/AdvReac Type Severity Reaction Status Date / Time No Known Allergies Allergy Verified 01/09/22 16:53 <Vianney De La Cruz PA-C - Last Filed: 01/09/22 19:02> Review of Systems Review of Systems: Gen: Denies fevers or chills Eyes: Denies eye pain or visual change ENT: Reports ear pain. Denies congestion Respiratory: Denies shortness of breath or cough CV: Denies chest pain or palpitations GI: Reports nausea and vomiting. Denies Diarrhea denies burning, urgency, frequency or hematuria Musculoskeletal: Denies back pain or muscle pain Neuro: Dizziness. Denies numbness, tingling, weakness or focal weakness Skin: Denies rash Except as documented, all other systems reviewed and negative <Vianney De La Cruz PA-C - Last Filed: 01/09/22 19:02> [facility] Past Medical History Medical History: Medical History Chronic GERD Hypertension Lung nodule <Vianney De La Cruz PA-C - Last Filed: 01/09/22 19:02> Social History Social History: Social History Smoking packs per day: 1.5 Smoking cigarettes per day: 30.0 Years smoked: 50 Smoking pack-years: 75.00 Smoking status: Former smoker (quit on 12/15/21 with hospital admission) Tobacco type: cigarettes Second hand tobacco smoke exposure: Yes Smoking end date: 03/14/21 Alcohol intake: never Alcohol use details: Social Substance use: current Substance use type: marijuana Gender identity (if verbalized by the patient): Female Sexual Orientation (if Verbalized by the Patient): Straight or Heterosexual Spiritual care concerns: No Agree to blood products: Yes <Jing Conte
[2022-01-09 16:00] LABS: Basophils Absolute Auto 0.1 K/mm3 (0.0-0.1); Basophils Percent Auto 0.7 % (0.2-1.2); Eosinophils Percent Auto 0.3 % (0-4.4); Hematocrit 48.6 % (37.0-47.0); Hemoglobin 16.1 g/dL (12.0-15.0); Immature Granulocyte Absolute 0.03 K/mm3 (0.00-0.031); Immature Granulocyte Percent A 0.3 % (0-0.5); Lymphocytes Absolute Auto 0.71 K/mm3 (0.9-3.2); Lymphocytes Percent Auto 7.9 % (18.3-44.2); Mean Corpuscular HGB Conc 33.1 g/dl (32-36); Mean Corpuscular Hemoglobin 29.7 pg (26-34); Mean Corpuscular Volume 89.7 fl (80-100); Mean Platelet Volume 9.8 fl (7.4-10.4); Monocytes Absolute Auto 0.8 K/mm3 (0.1-0.6); Neutrophils Absolute Auto 7.4 K/mm3 (1.3-6.7); Neutrophils Percent Auto 81.8 % (45.5-73.1); Platelet Count Result 261 k/mm3 (150-375); Red Blood Count 5.42 M/mm3 (4.2-5.4); Red Cell Distribution Width 12.8 % (11.5-14.5)
[2022-01-09 16:13] LABS: Alanine Aminotransferase 17 U/L (6-35); Albumin Level 3.8 g/dL (3.5-5.1); Alkaline Phosphatase 83 U/L (38-126); Anion Gap 7 mmol/L (8-16); Aspartate Amino Transferase 26 U/L (14-36); Bilirubin,Total 1.4 mg/dL (0.2-1.3); Blood Urea Nitrogen 13 mg/dL (7-17); Calcium 9.3 mg/dL (8.4-10.2); Carbon Dioxide 30 mmol/L (22-30); Chloride 97 mmol/L (98-107); Estimated CRCL calculation 60 ml/min; Estimated Glomerular Filt Rate > 60; Glucose 135 mg/dL (65-110); Lipase 29 U/L (23-300); Potassium 3.5 mmol/L (3.4-5.0); Sodium 134 mmol/L (137-145)
[2022-01-09 16:25] LABS: Troponin I < 0.012 ng/mL (0.000-0.034)
[2022-01-09] MEDS: ONDANSETRON INJ 4 MG/2 ML VIAL IV PUSH (16:32)
[2022-01-09] MEDS: MECLIZINE HCL 12.5 MG TABLET PO (16:32)
[2022-01-09] MEDS: SODIUM CHLORIDE 0.9% IV 1,000 ML 999 ML IV CONT (16:32)
[2022-01-09] MEDS: diphenhydrAMINE HCl INJ 50 MG/ML VIAL 25 MG IV PUSH (18:04)
[2022-01-09] MEDS: METOCLOPRAMIDE HCL INJ 10 MG/2 ML VIAL IV PUSH (18:04)
== END 2022-01-09 19:26 | disposition home or self-care (01) ==
PROVIDERS: Physician Assistant; Emergency Provider Emergency Medicine; PCP Internal Medicine
DX: H66.90 Otitis media, unspecified, unspecified ear (principal); I10 Essential (primary) hypertension; Z79.82 Long term (current) use of aspirin; Z87.891 Personal history of nicotine dependence
CPT/HCPCS: 36415; 70450; 80053; 83690; 84484; 85025; 93005; 96361; 96374; 96375; 99284; A9270; J1200; J2405; J2765; J7030

== ENCOUNTER → 2022-02-24 09:25 | Outpatient (CLI) | payer MEDICARE, SELFPAY ==
--- NOTE | ~2022-02-24 | XR_ITS ---
EXAMINATION: XR humerus LT, XR shoulder LT min 2V DATE: 02/24/2022 09:56 INDICATION: Left shoulder and upper arm pain. TECHNIQUE: 1. AP internally and externally rotated, AP oblique externally rotated and axillary views of the left shoulder were obtained. 2. Internal and externally rotated views of the left humerus were obtained. COMPARISON: None FINDINGS: Normal alignment at the left shoulder and elbow. There is mild widening of the lateral aspect of the radiocapitellar joint space with nondisplaced extra-articular fracture at the right radial neck. No o ther fractures identified. Normal joint space the left glenohumeral and acromioclavicular joints. Sof t tissues are unremarkable. IMPRESSION: Nondisplaced likely extra articular fracture at the left radial neck. Correlate for pain at the elbow and could consider dedicated left elbow radiographs for further evaluation. Reviewed, dictated and finalized at location B. IMPRESSION: Nondisplaced likely extra articular fracture at the left radial neck. Correlate for pain at the elbow and could consider dedicated left elbow radiographs for further evaluation.
== END ==
PROVIDERS: PCP Internal Medicine; Visit Provider Internal Medicine
DX: M25.512 Pain in left shoulder (principal)
CPT/HCPCS: 73030; 73060

== ENCOUNTER → 2022-02-25 10:20 | Outpatient (CLI) | payer MEDICARE, SELFPAY ==
--- NOTE | ~2022-02-25 | XR_ITS ---
EXAMINATION: XR elbow LT min 3V DATE: 02/25/2022 11:04 INDICATION: Left upper arm pain. TECHNIQUE: Anteroposterior, two oblique and lateral views of the left elbow were obtained. COMPARISON: None. FINDINGS: Mild sclerosis along a mildly impacted fracture along the neck of the proximal left radius consistent with likely healing subacute fracture. Alignment remains near-anatomic. No other fractures identifie d. Mild osteoarthritis of the left elbow. No joint effusion. Soft tissues are unremarkable. IMPRESSION: 1. Healing mildly impacted extra articular fractures at the proximal neck of the left radius. Reviewed, dictated and finalized at location B. IMPRESSION: 1. Healing mildly impacted extra articular fractures at the proximal neck of th e left radius.
== END ==
PROVIDERS: PCP Internal Medicine; Visit Provider Internal Medicine
DX: M79.629 Pain in unspecified upper arm (principal); S52.132D Displaced fracture of neck of left radius, subsequent encounter for closed fracture with routine healing
CPT/HCPCS: 73080

== ENCOUNTER 2022-04-26 17:30 | Observation (INO) | payer MEDICARE, SELFPAY ==
[2022-04-26] VITALS (10 sets, daily range): BP systolic 129–167; BP diastolic 75–130; PULSE 61–89; RESP 16–80; TEMP 36.2–36.6; O2SAT 92–100
--- NOTE | ~2022-04-26 | CT_ITS ---
EXAMINATION: CT abdomen pelvis wo con DATE: 04/26/2022 20:08 INDICATION: Vomiting, eval for obstruction TECHNIQUE: Computed tomography (CT) of the abdomen and pelvis was performed without intravenous contr ast. Automated exposure control and iterative reconstruction technique were employed. The dose-length product was 1418.90 mGy-cm. COMPARISON: 12/13/2021. FINDINGS: Lower thorax: Bibasilar scarring. Senescent change. Hiatal hernia. Liver: Granulomas calcifications. Biliary/Gallbladder: Gallbladder is normal. No bile duct dilation. Pancreas: No mass or duct dilation. Spleen: Granulomatous calcifications. Adrenals:Mild bilateral adrenal thickening, likely hyperplasia. Kidneys: No mass, stone, or hydronephrosis. GI tract: No small or large bowel dilation. Normal appendix. Diverticulosis without diverticulitis. Mesentery/Peritoneum: No ascites, mass, or free air. Retroperitoneum: No mass. Atherosclerotic abdominal aortic and/or arterial calcifications. Pelvis: Pelvic organs are within normal limits. Soft Tissues: Soft tissues and body wall unremarkable. Bones: No acute osseous finding. IMPRESSION: No acute abdominopelvic process detected. Reviewed, dictated and finalized at location K.
--- NOTE | ~2022-04-26 | CT_ITS ---
EXAMINATION: CT brain wo con DATE: 04/26/2022 21:17 INDICATION: Falls x2 . TECHNIQUE: Computed tomography (CT) of the head was performed without intravenous contrast. The mA wa s adjusted according to patient size. Iterative reconstruction technique was employed. The dose-lengt h product was 605.33 mGy-cm. COMPARISON: 01/09/2022 FINDINGS: No acute intracranial hemorrhage or extra-axial fluid collection. No hydrocephalus, mass, or herniation. No acute ischemic infarct. Unremarkable dural venous sinus attenuation. No acute osseous abnormality. Small left and trace right mastoid effusions, the remaining aerated spaces are clear. Mild atrophy and chronic white matter change. Atherosclerotic intracranial calcifications. IMPRESSION: No acute intracranial process. Reviewed, dictated and finalized at location K.
[2022-04-26 18:11] LABS: Basophils Absolute Auto 0.1 K/mm3 (0.0-0.1); Basophils Percent Auto 0.9 % (0.2-1.2); Eosinophils Absolute Auto 0.2 K/mm3 (0-0.3); Eosinophils Percent Auto 1.3 % (0-4.4); Hematocrit 45.3 % (37.0-47.0); Hemoglobin 15.3 g/dL (12.0-15.0); Immature Granulocyte Absolute 0.12 K/mm3 (0.00-0.031); Immature Granulocyte Percent A 0.9 % (0-0.5); Lymphocytes Absolute Auto 1.18 K/mm3 (0.9-3.2); Lymphocytes Percent Auto 9.2 % (18.3-44.2); Mean Corpuscular HGB Conc 33.8 g/dl (32-36); Mean Corpuscular Hemoglobin 29.1 pg (26-34); Mean Corpuscular Volume 86.1 fl (80-100); Mean Platelet Volume 9.9 fl (7.4-10.4); Monocytes Absolute Auto 1.1 K/mm3 (0.1-0.6); Monocytes Percent Auto 8.4 % (2.6-8.5); Neutrophils Absolute Auto 10.2 K/mm3 (1.3-6.7); Neutrophils Percent Auto 79.3 % (45.5-73.1); Platelet Count Result 393 k/mm3 (150-375); Red Blood Count 5.26 M/mm3 (4.2-5.4); Red Cell Distribution Width 12.8 % (11.5-14.5); White Blood Count 12.8 K/mm3 (4.5-10.0)
[2022-04-26 18:21] LABS: Alanine Aminotransferase 15 U/L (6-35); Albumin Level 4.2 g/dL (3.5-5.1); Alkaline Phosphatase 110 U/L (38-126); Anion Gap 15 mmol/L (8-16); Aspartate Amino Transferase 19 U/L (14-36); Bilirubin,Total 0.9 mg/dL (0.2-1.3); Blood Urea Nitrogen 60 mg/dL (7-17); Calcium 9.4 mg/dL (8.4-10.2); Carbon Dioxide 23 mmol/L (22-30); Chloride 96 mmol/L (98-107); Estimated CRCL calculation 27 ml/min; Estimated Glomerular Filt Rate 25; Glucose 131 mg/dL (65-110); Lipase 94 U/L (23-300); Potassium 3.4 mmol/L (3.4-5.0); Sodium 134 mmol/L (137-145)
[2022-04-26 18:23] LABS: Appearance Urine Clear (Clear); Bilirubin Urine 3+ (Negative); Blood Urine Negative (Negative); Color Urine Yellow (Yellow); Glucose Urine UA Negative (Negative); Ketones Urine Negative (Negative); Leukocyte Esterase Ur Negative LEU/UL (Negative); Nitrate Urine Negative (Negative); Protein Urine Negative (Negative); Specific Grav Ur 1.015 (1.001-1.035); Urobilinogen Urine 0.2 mg/dL (<2.0); pH Urine 5.5 (5.0-9.0)
[2022-04-26 18:30] LABS: Bacteria Urine Trace /hpf; Mucus Urine Rare /lpf; RBC Urine 0-2 /hpf (0-2); Squamous Epithelial Cell Urine Occasional /hpf (Few); Uric Acid Crystals Urine Present /hpf; WBC Urine 0-3 /hpf
[2022-04-26 18:34] LABS: Add Urine Microscopic? YES
[2022-04-26] MEDS: SODIUM CHLORIDE 0.9% IV 1,000 ML 999 ML IV CONT (19:36)
[2022-04-26] MEDS: PROCHLORPERAZINE EDISYLATE 10 MG/2 ML VIAL IV PUSH (19:36)
--- NOTE | 2022-04-26 19:45 | ED.NAVMDI ---
HPI - Nausea/Vomiting/Diarrhea General Chief complaint: Nausea/Vomiting/Diarrhea Stated complaint: Stomach Flu, Vomiting Time Seen by Provider: 04/26/22 19:03 History of Present Illness HPI Narrative: This is a 71-year-old female with past medical history of hypertension and GERD, who presents emergency department with vomiting for the past 4 days. Patient states she has had intermittent myalgias and subjective fevers and has not been able to eat or drink for the past 4 days. She denies vomiting blood, denies significant abdominal pain or diarrhea. Related Data Home Medications Medication Instructions Recorded Confirmed omeprazole 40 mg capsule,delayed 40 mg PO DAILY 12/13/21 04/27/22 release polyethylene glycol 3350 17 gram 17 g PO DAILY PRN Constipation 12/13/21 04/27/22 oral powder packet (Miralax) escitalopram oxalate 10 mg tablet 10 mg PO DAILY 04/27/22 04/27/22 Allergies Allergy/AdvReac Type Severity Reaction Status Date / Time No Known Allergies Allergy Verified 04/20/22 10:41 Review of Systems Review of Systems: CONSTITUTIONAL: Denies fever, chills, or sweats. EYES: Denies visual changes, redness, or discharge. ENT: Denies rhinorrhea, congestion, sore throat, or otalgia. CARDIOVASCULAR: Denies chest pain, palpitations, or edema. RESPIRATORY: Denies cough or dyspnea. GASTROINTESTINAL: nausea, vomiting, Denies abdominal pain, or diarrhea. GENITOURINARY: Denies dysuria or hematuria. SKIN: Denies rash or itching. MUSCULOSKELETAL: Denies back pain, joint pain, or myalgia. NEUROLOGIC: Denies headache, numbness, dizziness, or weakness. PSYCHIATRIC: Denies anxiety or depression. [facility] Past Medical History Medical History Chronic GERD Hypertension Lung nodule Social History Social History Smoking packs per day: 3 Smoking cigarettes per day: 60.0 Years smoked: 40 Smoking pack-years: 120.00 Smoking status: Former smoker Tobacco type: cigarettes Second hand tobacco smoke exposure: Yes Smoking end date: 03/14/21 Alcohol intake: current Alcohol use details: Socially Substance use: current Substance use type: marijuana Gender identity (if verbalized by the patient): Female Sexual Orientation (if Verbalized by the Patient): Straight or Heterosexual Spiritual care concerns: No Agree to blood products: Yes Exam Narrative: GENERAL: Well-developed, well-nourished, appears uncomfortable. HEAD: Normocephalic, atraumatic. EYES: PERRLA and EOMI. ENT: Nares clear, no rhinorrhea or epistaxis. Mucous membranes dry. Oropharynx without tonsillar hypertrophy exudate or other lesions. NECK: Supple. No adenopathy or masses. No carotid bruits or JVD CHEST: Clear to auscultation. No respiratory distress. No wheezes rales or rhonchi HEART: Regular rate and rhythm. No murmur heard. Normal peripheral pulses. ABDOMEN: Soft, mild diffuse tenderness to palpation without mass or rebound, nondistended, normal active bowel sounds. EXTREMITIES: Normal range of motion. No edema. SKIN: Warm, dry, no rash. NEURO: No focal deficits. Alert and oriented x3. PSYCH: Normal mood and affect. Course Course Emergency Course: 19:49 - Labs demonstrate acute kidney injury with creatinine of 2 with the patient's baseline is 0.8 21:07 - CT abdomen pelvis not concerning for acute process. Reevaluated patient. She states she feels improved. On further discussion however, the patient's reveals patient has fallen twice in the last 3 days striking her head without loss of consciousness. Will obtain CT head and plan for admission. 22:20 -CT head negative for intracranial hemorrhage or fracture. Discussed patient with hospitalist, Dr. Butler, who accepts admission. Vital Signs Vital signs: Vital Signs Temperature 97.8 F 04/26/22 17:41 Pulse Rate 79 04/26/22 17:41 Respirat
[2022-04-26 21:09] LABS: Influenza A QL RT-PCR Negative (Negative); Influenza B QL RT-PCR Negative (Negative); SARS-CoV-2 RNA PCR Negative
--- NOTE | 2022-04-26 22:25 | PM.IMHP ---
H&P: HPI History of Present Illness Date/Time: 04/26/22 22:25 Chief Complaint: 71 years old female with past medical history of hypertension on lisinopril/hydrochlorothiazide presented to the hospital with nausea and vomiting multiple times a day started 3 days ago associated with diarrhea has subjective fever also patient complains of myalgia no aggravating factor patient also has multiple falls recently at the ER patient was found to have creatinine of [address] scan of the abdomen was negative for acute finding patient had mild leukocytosis UA was normal patient was admitted to the hospital for further evaluation CT Review of Systems Review of Systems: 12 system was reviewed was negative except above PMFSH Past Medical History Medical History Chronic GERD Hypertension Lung nodule Social History Social History Smoking packs per day: 1.5 Smoking cigarettes per day: 30.0 Years smoked: 50 Smoking pack-years: 75.00 Smoking status: Former smoker Tobacco type: cigarettes Second hand tobacco smoke exposure: Yes Smoking end date: 03/14/21 Alcohol intake: current Alcohol use details: Socially Substance use: current Substance use type: marijuana Gender identity (if verbalized by the patient): Female Sexual Orientation (if Verbalized by the Patient): Straight or Heterosexual Spiritual care concerns: No Agree to blood products: Yes Meds Home Medications and Allergies Home Medications Medication Instructions Recorded Confirmed Type loratadine 10 mg capsule 10 mg PO DAILY PRN allergy 09/29/21 02/24/22 Rx symptoms #90 caps cholecalciferol (vitamin D3) 50 50 mcg PO DAILY #90 tabs 12/10/21 02/24/22 Rx mcg (2,000 unit) tablet omeprazole 40 mg capsule,delayed 40 mg PO DAILY 12/13/21 02/24/22 History release polyethylene glycol 3350 17 gram 17 g PO DAILY PRN Constipation 12/13/21 02/24/22 History oral powder packet (Miralax) lisinopril 10 1 tablet PO DAILY #90 tabs 03/14/22 Rx mg-hydrochlorothiazide 12.5 mg tablet escitalopram oxalate 10 mg tablet See Rx Instructions .Route 04/06/22 Rx .COMPLEX #90 tabs zolpidem 10 mg tablet (Ambien) 10 mg PO QHS #30 tabs 04/12/22 Rx etodolac 400 mg tablet 400 mg PO BID #60 tabs 04/20/22 04/20/22 Rx Allergies Allergy/AdvReac Type Severity Reaction Status Date / Time No Known Allergies Allergy Verified 04/20/22 10:41 Vital Signs Vital Signs - 24 hr 04/26/22 17:41 04/26/22 19:02 04/26/22 20:10 Temperature 97.8 F Pulse Rate 79 61 Respiratory Rate 80 H 18 Blood Pressure 129/83 156/75 H 154/82 H Pulse Oximetry 96 97 97 Oxygen Delivery Room Air 04/26/22 20:15 04/26/22 20:31 04/26/22 20:59 Temperature Pulse Rate 80 Respiratory Rate Blood Pressure 163/78 H 167/79 H 161/84 H Pulse Oximetry 94 92 97 Oxygen Delivery 04/26/22 21:30 Temperature Pulse Rate Respiratory Rate Blood Pressure 165/83 H Pulse Oximetry 97 Oxygen Delivery Exam Narrative: GENERAL: Well-developed, well-nourished, appears uncomfortable. HEAD: Normocephalic, atraumatic. EYES: PERRLA and EOMI. ENT: Nares clear, no rhinorrhea or epistaxis.? Mucous membranes dry.? Oropharynx without tonsillar hypertrophy exudate or other lesions. NECK: Supple.? No adenopathy or masses.? No carotid bruits or JVD CHEST: Clear to auscultation.? No respiratory distress.? No wheezes rales or rhonchi HEART: Regular rate and rhythm.? No murmur heard.? Normal peripheral pulses. ABDOMEN: Soft, mild diffuse tenderness to palpation without mass or rebound, nondistended, normal active bowel sounds. EXTREMITIES: Normal range of motion.? No edema. SKIN: Warm, dry, no rash. NEURO: No focal deficits.? Alert and oriented x3. PSYCH: Normal mood and affect. H&P: Results Labs Labs: Short CBC 04/26/22 Ran
[2022-04-26] MEDS: SODIUM CHLORIDE 0.45% 1,000 ML 100 ML IV CONT (22:42)
[2022-04-26 23:23] LABS: Total Protein Urine Random 11 mg/dL
[2022-04-26 23:24] LABS: Creatine Kinase 39 U/L (30-135); Potassium Urine Random 16.4 meq/L; Sodium Urine Random 89 meq/L
[2022-04-26] MEDS: hydrALAZINE HCL 25 MG TABLET PO (23:26)
[2022-04-26 23:29] LABS: Magnesium 2.3 mg/dL (1.6-2.3); Uric Acid 5.4 mg/dL (2.5-7.5)
--- NOTE | 2022-04-26 23:47 | ADMGEN ---
This patient, Yue Weinstein, was admitted to Medical Room 252-01. Patient/family oriented to hospital policies and general routines including ID bracelet, bed and alarms, visiting hours, pain management, procedures, bathroom and other care routines, personal items, smoking policy, room service/diet, and visiting hours. Information on how to activate the Rapid Response Team has been discussed. Patient/Family are encouraged to report perceived risks to care and to ask questions if they do not understand what they are told or what they should do.
[2022-04-27] VITALS (9 sets, daily range): BP systolic 117–147; BP diastolic 61–75; PULSE 66–88; RESP 16; TEMP 36.1–37.1; O2SAT 94–96; BMI 37.5
[2022-04-27] MEDS: HYDROcodone/acetaminophen (*CRX) 5-325 MG TABLET 1 TAB PO (00:24)
[2022-04-27 05:42] LABS: Basophils Absolute Auto 0.1 K/mm3 (0.0-0.1); Basophils Percent Auto 0.6 % (0.2-1.2); Eosinophils Absolute Auto 0.2 K/mm3 (0-0.3); Eosinophils Percent Auto 1.4 % (0-4.4); Hemoglobin 13.2 g/dL (12.0-15.0); Immature Granulocyte Absolute 0.06 K/mm3 (0.00-0.031); Immature Granulocyte Percent A 0.6 % (0-0.5); Lymphocytes Percent Auto 19.9 % (18.3-44.2); Mean Corpuscular Hemoglobin 29.3 pg (26-34); Mean Corpuscular Volume 88.7 fl (80-100); Mean Platelet Volume 10.1 fl (7.4-10.4); Monocytes Percent Auto 9.2 % (2.6-8.5); Neutrophils Absolute Auto 7.2 K/mm3 (1.3-6.7); Neutrophils Percent Auto 68.3 % (45.5-73.1); Platelet Count Result 332 k/mm3 (150-375); Red Blood Count 4.51 M/mm3 (4.2-5.4); Red Cell Distribution Width 12.9 % (11.5-14.5); White Blood Count 10.5 K/mm3 (4.5-10.0)
[2022-04-27 06:53] LABS: Alanine Aminotransferase 12 U/L (6-35); Albumin Level 3.3 g/dL (3.5-5.1); Alkaline Phosphatase 81 U/L (38-126); Anion Gap 10 mmol/L (8-16); Aspartate Amino Transferase 19 U/L (14-36); Bilirubin,Total 0.8 mg/dL (0.2-1.3); Blood Urea Nitrogen 46 mg/dL (7-17); Calcium 9.1 mg/dL (8.4-10.2); Carbon Dioxide 25 mmol/L (22-30); Chloride 99 mmol/L (98-107); Estimated CRCL calculation 39 ml/min; Estimated Glomerular Filt Rate 41; Glucose 98 mg/dL (65-110); Sodium 134 mmol/L (137-145)
[2022-04-27] MEDS: PANTOPRAZOLE SODIUM IV 40 MG VIAL IV PUSH ×2 (08:27→16:27)
[2022-04-27] MEDS: HEPARIN SODIUM 5,000 UNITS/ML VIAL 5000 UNITS SUB-Q (08:27)
[2022-04-27] MEDS: SODIUM CHLORIDE 0.9% IV 1,000 ML 100 ML IV CONT (08:34)
--- NOTE | 2022-04-27 12:55 | PM.IMPN ---
Progress Note: A&P Assessment and Plan (1) SYDNEY (acute kidney injury): Code(s): N17.9 - Acute kidney failure, unspecified Status: Acute (2) Chronic GERD: Code(s): K21.9 - Gastro-esophageal reflux disease without esophagitis Status: Acute Subjective Date/time seen: 04/27/22 12:55 Objective Data Vital Signs Vital Signs: Vital Signs - 24 hr 04/26/22 17:41 04/26/22 19:02 04/26/22 20:10 Temperature 97.8 F Pulse Rate 79 61 Respiratory Rate 80 H 18 Blood Pressure 129/83 156/75 H 154/82 H Pulse Oximetry 96 97 97 Oxygen Delivery Room Air 04/26/22 20:15 04/26/22 20:31 04/26/22 20:59 Temperature Pulse Rate 80 Respiratory Rate Blood Pressure 163/78 H 167/79 H 161/84 H Pulse Oximetry 94 92 97 Oxygen Delivery 04/26/22 21:30 04/26/22 22:07 04/26/22 22:48 Temperature Pulse Rate 86 Respiratory Rate 16 Blood Pressure 165/83 H 154/81 H 148/103 H Pulse Oximetry 97 100 98 Oxygen Delivery 04/26/22 23:25 04/27/22 00:06 04/27/22 00:06 Temperature 97.2 F L 98.6 F Pulse Rate 89 88 Respiratory Rate 21 H 16 Blood Pressure 153/130 H 147/75 H 147/75 H Pulse Oximetry 94 95 Oxygen Delivery 04/27/22 00:08 04/27/22 00:10 04/27/22 04:00 Temperature Pulse Rate 72 Respiratory Rate Blood Pressure 142/73 H 126/75 Pulse Oximetry Oxygen Delivery 04/27/22 05:18 04/27/22 08:00 04/27/22 08:40 Temperature 98.8 F Pulse Rate 69 70 Respiratory Rate 16 Blood Pressure 117/66 Pulse Oximetry 94 Oxygen Delivery Room Air Intake/Output Intake/Output: Intake & Output 04/24/22 04/25/22 04/26/22 04/27/22 23:59 23:59 23:59 23:59 Intake Total 1000 1782 Balance 1000 1782 Meds/Results Medications: Active Medications Generic Name Dose Route Start Last Admin Trade Name Freq PRN Reason Stop Dose Admin Acetaminophen 650 mg 04/26/22 22:22 Acetaminophen 325 Mg Tablet PO Q4H PRN Mild Pain (1-3) or Fever Hydrocodone Bitart/Acetaminophen 1 tab 04/27/22 00:11 04/27/22 00:24 Hydrocodone/Acetaminophen (*Crx) 5-325 Mg Tablet PO 1 tab Q6H PRN Administration Pain Rated 4-6 Bisacodyl 5 mg 04/26/22 22:22 Bisacodyl 5 Mg Tablet Ec PO DAILY PRN Constipation Escitalopram Oxalate 10 mg 04/27/22 09:00 04/27/22 08:28 Escitalopram Oxalate 10 Mg Tablet PO Not Given DAILY VIANEY Heparin Sodium (Porcine) 5,000 units 04/27/22 09:00 04/27/22 08:27 Heparin Sodium 5,000 Units/Ml Vial SUB-Q 5,000 units Q12HR VIANEY Administration Hydralazine HCl 25 mg 04/26/22 22:24 04/26/22 23:26 Hydralazine Hcl 25 Mg Tablet PO 25 mg QID PRN Administration Hypertension Ceftriaxone Sodium/Dextrose 1 gm in 50 mls @ 100 mls/hr 04/26/22 23:40 04/27/22 00:03 Rocephin 1 Gm/D5w 50 Ml IVPB 100 mls/hr DAILY@2100 VIANEY Administration Sodium Chloride 1,000 mls @ 100 mls/hr 04/27/22 08:00 04/27/22 08:34 Normal Saline Iv IV CONT 100 mls/hr .Q10H VIANEY Administration Loratadine 10 mg 04/27/22 00:36 Loratadine 10 Mg Tablet PO DAILY PRN allergy symptoms Miscellaneous Information 0 each 04/27/22 00:01 Zolpidem - Due To Age And Gender, 5 Mg Dose Is Recommended - Please Review Dose XX 05/27/22 00:00 CLARIFY VIANEY Pantoprazole Sodium 40 mg 04/27/22 09:00 04/27/22 08:27 Pantoprazole Sodium Iv 40 Mg Vial IV PUSH 40 mg BID VIANEY Administration Zolpidem Tartrate 10 mg 04/27/22 00:36 Zolpidem Tartrate (*Crx) 5 Mg Tablet PO QHS PRN insomnia Radiology Results: ITS Impressions Abdomen/Pelvis CT 04/26/22 20:24 IMPRESSION: No acute abdominopelvic process detected. Head CT 04/26/22 21:23 IMPRESSION: No acute intracranial process. Labs Labs: Laboratory Results - last 24 hr 04/26/22 04/26/22 04/26/22 17:57 17:57 18:10 WBC 12.8 H RBC 5.26 Hgb 15.3 H Hct 45.3 MCV 86.1 MCH 29.1 MCHC
[2022-04-27] MEDS: POTASSIUM CHLORIDE 20 MEQ TABLET 40 MEQ PO (15:23)
[2022-04-27 17:29] LABS: Anion Gap 13 mmol/L (8-16); Blood Urea Nitrogen 31 mg/dL (7-17); Calcium 9.1 mg/dL (8.4-10.2); Carbon Dioxide 25 mmol/L (22-30); Chloride 100 mmol/L (98-107); Estimated CRCL calculation 46 ml/min; Estimated Glomerular Filt Rate 49; Glucose 99 mg/dL (65-110); Potassium 3.7 mmol/L (3.4-5.0); Sodium 138 mmol/L (137-145)
--- NOTE | 2022-04-27 18:15 | PM.DS ---
DS: Admitting Diagnosis Discharge Date 04/27/22 Admitting Diagnosis acute gastroenteritis DS: Discharge Diagnosis Discharge Diagnosis (1) SYDNEY (acute kidney injury): Code(s): N17.9 - Acute kidney failure, unspecified Status: Acute Assessment and Plan: multifactorial most likely related to diuretics gastroenteritis and dehydration continue IV hydration re-evaluate in a.m. CT scan of the abdomen negative for obstructive uropathy check urine electrolytes check CK as patient also had multiple falls (2) Chronic GERD: Code(s): K21.9 - Gastro-esophageal reflux disease without esophagitis Status: Acute DS: Summary Hospital Course Hospital Course: 71 years old female with past medical history of hypertension on lisinopril/hydrochlorothiazide? presented to the hospital with nausea and vomiting multiple times a day started 3 days ago associated with diarrhea has subjective fever also patient complains of myalgia no aggravating factor patient also has multiple falls recently at the ER patient was found to have creatinine of [address] scan of the abdomen was negative for acute finding patient had mild leukocytosis UA was normal patient was admitted to the hospital for further evaluation. Patient was admitted with IV fluids, supportive care. All symptoms resolved. She did have an acute kidney injury that also resolved with IV fluids. She was discharged in good condition with close outpatient follow-up with repeat BMP and encouraged p.o. intake. Time Spent with Patient Time attestation: Total time spent providing and/or coordinating discharge services: Exam Narrative: General: No acute distress, alert and oriented per baseline HEENT: Atraumatic, normocephalic, mucous membranes moist CV: Regular rate and rhythm, S1, S2 Lungs: Clear to auscultation bilaterally, no rales or crackles noted, no wheezes, good air entry Abdomen: Soft, nontender, nondistended Extremities: Normal to inspection Skin: No rashes noted, no lesions or wounds seen Psych: Euthymic, normal affect DS: Data Data Completed and Pending Labs on day of discharge: Labs from last 24 hours 04/27/22 04/27/22 04/27/22 17:07 05:19 05:19 WBC 10.5 H RBC 4.51 Hgb 13.2 Hct 40.0 MCV 88.7 MCH 29.3 MCHC 33.0 RDW 12.9 Plt Count 332 MPV 10.1 Immature Gran % (Auto) 0.6 H Neut % (Auto) 68.3 Lymph % (Auto) 19.9 [place] % (Auto) 9.2 H Eos % (Auto) 1.4 Baso % (Auto) 0.6 Lymph # (Auto) 2.10 [place] # (Auto) 1.0 H Eos # (Auto) 0.2 Baso # (Auto) 0.1 Abs Immat Gran (auto) 0.06 H Absolute Neuts (auto) 7.2 H Absolute Nucleated RBC 0.0 Nucleated RBC % 0.0 Sodium 138 134 L Potassium 3.7 3.0 L Chloride 100 99 Carbon Dioxide 25 25 Anion Gap 13 10 BUN 31 H D 46 H D Creatinine 1.10 H 1.30 H Estim Creat Clear Calc 46 39 Estimated GFR 49 L 41 L Glucose 99 98 Uric Acid Calcium 9.1 9.1 Magnesium Total Bilirubin 0.8 AST 19 ALT 12 Alkaline Phosphatase 81 Total Creatine Kinase Total Protein 6.0 L Albumin 3.3 L Lipase Urine Color Urine Appearance Urine pH Ur Specific [place] Urine Protein Urine Glucose (UA) Urine Ketones Ur Blood (Man) Urine Nitrate Urine Bilirubin Urine Urobilinogen Leukocyte Esterase Rfl Urine RBC Urine WBC Ur Squamous Epith Cells Uric Acid Crystals Urine Bacteria Urine Mucus U Random Total Protein Ur Random Sodium Ur Random Potassium Influenza A (RT-PCR) Influenza B (RT-PCR) SARS-CoV-2 RNA (RT-PCR) 04/26/22 04/26/22 04/26/22 23:09 23:09 23:09 WBC RBC Hgb Hct MCV MCH MCHC RDW Plt Count MPV Immature Gran % (Auto) Neut % (Auto) Lymph % (Auto) [place] % (Auto) Eos % (Auto) Baso % (Auto) Lymph # (Auto) [place] # (Auto) Eo
== END 2022-04-27 17:51 | disposition home or self-care (01) ==
LOC: ANHED 19:03 → ANH2MED 23:24
PROVIDERS: Emergency Medicine; Admitting Provider Internal Medicine; Emergency Provider Preventive Medicine Aerospace Medicine; PCP Internal Medicine; Visit Provider Student in an Organized Health Care Education/Training Program
DX: N17.9 Acute kidney failure, unspecified (principal); K21.9 Gastro-esophageal reflux disease without esophagitis; I10 Essential (primary) hypertension; M79.10 Myalgia, unspecified site; K44.9 Diaphragmatic hernia without obstruction or gangrene; K75.3 Granulomatous hepatitis, not elsewhere classified; E27.8 Other specified disorders of adrenal gland; K57.90 Diverticulosis of intestine, part unspecified, without perforation or abscess without bleeding; Z20.822 Contact with and (suspected) exposure to COVID-19; D72.829 Elevated white blood cell count, unspecified; Z87.891 Personal history of nicotine dependence; F12.90 Cannabis use, unspecified, uncomplicated; Z79.899 Other long term (current) drug therapy
CPT/HCPCS: 36415; 70450; 74176; 80048; 80053; 81001; 81050; 82550; 83690; 83735; 84133; 84156; 84300; 84550; 85025; 87040; 87502; 96361; 96372; 96374; 96375; 96376; 99285; A9270; C9113; C9803; G0378; J0696; J0780; J1644; J7030; U0003; U0005

== ENCOUNTER → 2022-05-05 13:51 | Outpatient (CLI) | payer MEDICARE, SELFPAY ==
--- NOTE | ~2022-05-05 | XR_ITS ---
XR chest 2V 05/05/2022 14:13 Indication: Cough. Dyspnea. Procedure: 2 view chest Comparison: 12/14/2021 Findings: Cardiomegaly with mild pulmonary vascular congestion. No focal pneumonia, pleural effusion or pneumothorax. No acute osseous abnormality. Impression: 1: Cardiomegaly with mild pulmonary vascular congestion. Reviewed, dictated and finalized at location A. Impression: 1: Cardiomegaly with mild pulmonary vascular congestion.
--- NOTE | ~2022-05-05 | XR_ITS ---
XR wrist RT min 3V 05/05/2022 14:13 Indication: Status post recent fall with radial sided pain. Procedure: 4 views right wrist Comparison: No prior studies for comparison. Findings: There is transverse sclerosis at the radial metaphysis with cortical irregularity along the radial aspect, consistent with nondisplaced impaction fracture. No significant soft tissue abnormali ty. No other fracture identified. Osteopenia. Impression: 1: Nondisplaced impaction fracture of the distal radius. Reviewed, dictated and finalized at location A. Impression: 1: Nondisplaced impaction fracture of the distal radius.
== END ==
PROVIDERS: PCP Internal Medicine; Visit Provider Nurse Practitioner
DX: R05.9 Cough, unspecified (principal); S69.91XA Unspecified injury of right wrist, hand and finger(s), initial encounter; S52.591A Other fractures of lower end of right radius, initial encounter for closed fracture; I51.7 Cardiomegaly; R09.89 Other specified symptoms and signs involving the circulatory and respiratory systems
CPT/HCPCS: 71046; 73110

== ENCOUNTER 2022-06-10 15:45 | Emergency (ER) | payer MEDICARE, SELFPAY ==
[2022-06-10] VITALS (9 sets, daily range): BP systolic 138–166; BP diastolic 71–138; PULSE 81; RESP 14; TEMP 36.5; O2SAT 90–99
--- NOTE | ~2022-06-10 | CT_ITS ---
EXAMINATION: CT abdomen pelvis w con DATE: 06/10/2022 20:11 INDICATION: Vomiting. TECHNIQUE: Computed tomography (CT) of the abdomen and pelvis was performed with 100 mL Omnipaque 350 intravenous contrast. Automated exposure control and iterative reconstruction technique were employe d. The dose-length product was 1051.06 mGy-cm. COMPARISON: CT abdomen and pelvis 04/26/2022, chest CT 09/15/2020 FINDINGS: The visualized portions of the lung bases demonstrate mild emphysema and mild atelectasis. There is a chronic 6 mm nodule in right middle lobe, likely benign. No pleural effusion. The heart si ze is normal. There are coronary artery calcifications. No pericardial effusion. There is a small sli ding hiatal hernia. Calcifications in the liver and spleen are consistent with old granulomatous dise ase. The gallbladder, pancreas, and adrenal glands are normal. There are cysts in the kidneys measuri ng up to 7 mm on the right. There is diverticulosis of the colon without evidence of diverticulitis. The appendix is normal. There are no pathologically enlarged lymph nodes. There is no free intraperit yepez fluid. There is mild thoracolumbar spondylosis. IMPRESSION: 1. Small sliding hiatal hernia. Reviewed, dictated and finalized at location A.
[2022-06-10 16:27] LABS: Basophils Absolute Auto 0.1 K/mm3 (0.0-0.1); Basophils Percent Auto 0.3 % (0.2-1.2); Eosinophils Percent Auto 0.1 % (0-4.4); Hematocrit 47.9 % (37.0-47.0); Hemoglobin 15.8 g/dL (12.0-15.0); Immature Granulocyte Absolute 0.12 K/mm3 (0.00-0.031); Immature Granulocyte Percent A 0.7 % (0-0.5); Lymphocytes Absolute Auto 1.78 K/mm3 (0.9-3.2); Lymphocytes Percent Auto 9.9 % (18.3-44.2); Mean Corpuscular Hemoglobin 28.3 pg (26-34); Mean Corpuscular Volume 85.7 fl (80-100); Monocytes Absolute Auto 1.5 K/mm3 (0.1-0.6); Monocytes Percent Auto 8.2 % (2.6-8.5); Neutrophils Absolute Auto 14.6 K/mm3 (1.3-6.7); Neutrophils Percent Auto 80.8 % (45.5-73.1); Platelet Count Result 534 k/mm3 (150-375); Red Blood Count 5.59 M/mm3 (4.2-5.4); Red Cell Distribution Width 12.7 % (11.5-14.5)
[2022-06-10 16:37] LABS: Alanine Aminotransferase 17 U/L (6-35); Albumin Level 4.6 g/dL (3.5-5.1); Alkaline Phosphatase 120 U/L (38-126); Anion Gap 15 mmol/L (8-16); Aspartate Amino Transferase 21 U/L (14-36); Bilirubin,Total 0.6 mg/dL (0.2-1.3); Blood Urea Nitrogen 17 mg/dL (7-17); Calcium 10.4 mg/dL (8.4-10.2); Carbon Dioxide 22 mmol/L (22-30); Chloride 96 mmol/L (98-107); Estimated CRCL calculation 61 ml/min; Estimated Glomerular Filt Rate > 60; Glucose 118 mg/dL (65-110); Lipase 39 U/L (23-300); Potassium 3.4 mmol/L (3.4-5.0); Sodium 133 mmol/L (137-145)
[2022-06-10 16:49] LABS: Appearance Urine Clear (Clear); Bilirubin Urine 3+ (Negative); Blood Urine 2+ (Negative); Color Urine Yellow (Yellow); Glucose Urine UA Negative (Negative); Ketones Urine Trace mg/dL (Negative); Leukocyte Esterase Ur Negative LEU/UL (Negative); Nitrate Urine Negative (Negative); Protein Urine 3+ mg/dL (Negative); Specific Grav Ur 1.025 (1.001-1.035); Urobilinogen Urine 0.2 mg/dL (<2.0); pH Urine 6.5 (5.0-9.0)
[2022-06-10 16:58] LABS: Bacteria Urine Trace /hpf; Mucus Urine Heavy /lpf; Squamous Epithelial Cell Urine Many /hpf (Few)
[2022-06-10 16:59] LABS: Add Urine Microscopic? YES
--- NOTE | 2022-06-10 19:31 | PC.NURSE ---
talking with patient states she would perfer to go home and not get an iv and fluids states she feels better and has not vomiting the whole time she was here. provider notified
[2022-06-10] MEDS: SODIUM CHLORIDE 0.9% IV 1,000 ML 999 ML IV CONT (19:42)
--- NOTE | 2022-06-10 20:58 | ED.NAVMDI ---
HPI - Nausea/Vomiting/Diarrhea General Chief complaint: Nausea/Vomiting/Diarrhea Stated complaint: vomiting Time Seen by Provider: 06/10/22 18:47 History of Present Illness HPI Narrative: Patient is a 71-year-old female who presents to the ER with nausea vomiting. Ongoing for last 3 days. Somewhat today. Feels better and fatigue. No fevers chills or sweats. No chest pain or chest pressure. No lateralizing abdominal pain. No urinary frequency urgency or dysuria. She has had no medications at home to help with her history of vomiting. No known sick contacts. Hemoccult Related Data Home Medications Medication Instructions Recorded Confirmed omeprazole 40 mg capsule,delayed 40 mg PO DAILY 12/13/21 06/08/22 release polyethylene glycol 3350 17 gram 17 g PO DAILY PRN Constipation 12/13/21 06/08/22 oral powder packet (Miralax) etodolac 400 mg tablet 400 mg PO DAILY 06/08/22 06/08/22 zolpidem 10 mg tablet (Ambien) 10 mg PO QHS PRN Insomnia 06/08/22 06/08/22 Allergies Allergy/AdvReac Type Severity Reaction Status Date / Time No Known Allergies Allergy Verified 06/08/22 13:08 Review of Systems Review of Systems: All systems reviewed & are unremarkable except as noted in HPI and below Constitutional: Constitutional: Denies chills, Reports fatigue, Denies fever(s) and Reports weakness ENT: Denies nasal congestion and Denies sore throat Cardiovascular: Cardiovascular: Denies chest pain, Denies rapid heart rate and Denies radiating jaw, neck or arm pain Respiratory: Respiratory: Denies cough, Denies dyspnea and Denies wheezing Gastrointestinal: Gastrointestinal: Denies abdominal pain, Denies diarrhea, Reports nausea and Reports vomiting Genitourinary: Genitourinary: Denies nocturia and Denies dysuria [facility] Past Medical History Medical History Arthritis Chronic GERD GERD (gastroesophageal reflux disease) Hypertension Lung nodule Osteoporosis Family History Family History Mother Asthma Cerebrovascular accident Father Cancer Heart disease Sibling Cancer Social History Social History Smoking packs per day: 1 Smoking cigarettes per day: 20.0 Years smoked: 53 Smoking pack-years: 53.00 Smoking status: Former smoker Tobacco type: cigarettes Second hand tobacco smoke exposure: Yes Smoking end date: 03/14/21 Alcohol intake: current Alcohol use details: occasionally Substance use: current Substance use type: marijuana Other substance usage details: smokes marijuana daily Gender identity (if verbalized by the patient): Female Sexual Orientation (if Verbalized by the Patient): Straight or Heterosexual Spiritual care concerns: No Agree to blood products: Yes Exam Narrative: GENERAL: Well-appearing, well-nourished, and in no acute distress. HEAD: Normocephalic, atraumatic. ENT: Mucous membranes moist. CHEST: Clear to auscultation. No respiratory distress. HEART: Regular rate and rhythm. Normal peripheral pulses. ABDOMEN: Soft, nontender, nondistended, normal active bowel sounds. EXTREMITIES: Normal range of motion. No edema. Cock up wrist splint right wrist. SKIN: Warm, dry, no rash. NEURO: Alert and oriented x3. PSYCH: Normal mood and affect. Course Course Emergency Course: Patient resting comfortably. No vomiting here. Feels better with fluids. Vital Signs Vital signs: Vital Signs Temperature 97.7 F 06/10/22 16:05 Pulse Rate 81 06/10/22 16:05 Respiratory Rate 14 06/10/22 16:05 Blood Pressure 153/101 H 06/10/22 16:05 Pulse Oximetry 99 06/10/22 16:05 Oxygen Delivery Room Air 06/10/22 16:05 Temperature 97.7 F 06/10/22 16:05 Pulse Rate 81 06/10/22 16:05 Respiratory Rate 14 06/10/22 16:05 Blood Pressure 150/73 H 06/10/22 20:31 Pulse Oximetry 93
== END 2022-06-10 21:18 | disposition home or self-care (01) ==
PROVIDERS: Emergency Medicine; Emergency Provider Emergency Medicine; PCP Internal Medicine
DX: R11.11 Vomiting without nausea (principal); I10 Essential (primary) hypertension; Z87.891 Personal history of nicotine dependence; Z79.899 Other long term (current) drug therapy
CPT/HCPCS: 36415; 74177; 80053; 81001; 83690; 85025; 87086; 87088; 96360; 99284; J7030; Q9967

== ENCOUNTER 2022-06-14 01:31 | Day surgery (SDC) | payer MEDICARE, SELFPAY ==
[2022-06-08 12:10] VITALS: BMI 37.5
[2022-06-14 10:32] VITALS: BP 106/72; PULSE 90; RESP 17; TEMP 36.3; O2SAT 93; BMI 35.2
--- NOTE | 2022-06-14 10:41 | PM.HPGS ---
History of Present Illness History of Present Illness Consent: Risks, benefits, and alternatives have been discussed and questions answered. Patient agrees to proceed with procedure. Chief complaint: GERD Narrative: Yue Weinstein is a 71 year old female Referred for EGD. Patient gives a history of being told that she had acid reflux for many years. She used to have heartburn. This currently controlled on omeprazole. Patient reports frequent nausea despite this medication. She was hospitalized 3 times this year with dehydration felt to have had gastroenteritis. Patient presents today for EGD because of chronic GE reflux disease family history is noncontributory. Patient reports her weight is stable she has not had any bleeding. Review of Systems Review of Systems: Review of systems noncontributory. [facility] Past Medical History Medical History Arthritis Chronic GERD GERD (gastroesophageal reflux disease) Hypertension Lung nodule Osteoporosis Family History Family History Mother Asthma Cerebrovascular accident Father Cancer Heart disease Sibling Cancer Social History Social History Smoking packs per day: 1 Smoking cigarettes per day: 20.0 Years smoked: 53 Smoking pack-years: 53.00 Smoking status: Former smoker Tobacco type: cigarettes Second hand tobacco smoke exposure: Yes Smoking end date: 03/14/21 Alcohol intake: current Alcohol use details: occasionally Substance use: current Substance use type: marijuana Other substance usage details: smokes marijuana daily Living arrangements: with family Gender identity (if verbalized by the patient): Female Sexual Orientation (if Verbalized by the Patient): Straight or Heterosexual Spiritual care concerns: No Agree to blood products: Yes Meds Home Medications and Allergies Home Medications Medication Instructions Recorded Confirmed Type omeprazole 40 mg capsule,delayed 40 mg PO DAILY 12/13/21 06/14/22 History release cholecalciferol (vitamin D3) 50 50 mcg PO DAILY #90 tabs 06/08/22 06/14/22 Rx mcg (2,000 unit) tablet etodolac 400 mg tablet 400 mg PO DAILY 06/08/22 06/14/22 History zolpidem 10 mg tablet (Ambien) 10 mg PO QHS PRN Insomnia 06/08/22 06/14/22 History ondansetron 4 mg disintegrating 4 mg PO Q6H PRN nausea and 06/10/22 06/14/22 Rx tablet vomiting #10 tabs Allergies Allergy/AdvReac Type Severity Reaction Status Date / Time No Known Allergies Allergy Verified 06/14/22 10:31 Vital Signs Vital Signs - 24 hr 06/14/22 10:32 Temperature 97.3 F L Pulse Rate 90 Respiratory Rate 17 Blood Pressure 106/72 Pulse Oximetry 93 Oxygen Delivery Room Air Exam Narrative: Physical exam reveals patient be alert. Vital signs stable. HEENT exam is unremarkable. Patient is anicteric. Lungs are clear to auscultation and percussion. Heart is without murmur or extra sounds. Abdomen bowel sounds are present soft nontender with no hepatosplenomegaly. Assessment and Plan Assessment and plan (1) Nausea & vomiting: Code(s): R11.2 - Nausea with vomiting, unspecified Status: Acute Assessment and Plan: patient complains of intermittent nausea. Plan for EGD to evaluate more thoroughly. (2) Chronic GERD: Code(s): K21.9 - Gastro-esophageal reflux disease without esophagitis Status: Acute Assessment and Plan: Patient has a history of chronic GE reflux disease. She has been maintained on omeprazole 40mg p.o. daily for quite some time. Plan to continue anti-reflux measures an EGD is advised because of the chronicity of her symptoms.
[2022-06-14] MEDS: LACTATED RINGERS 1,000 ML 150 ML IV CONT (10:45)
--- NOTE | 2022-06-14 10:51 | WPDANESEPPF ---
Anes - Initial Pre Proc Eval Procedure: Operation Date: 06/14/22 12:30 Proposed Procedures p Esophagogastroduodenoscopy EGD - Jorje Pandey MD Date/Time: 06/14/22 10:51 Surgeon: Jorje Pandey MD Pre Op Diagnosis: GERD Patient Data Age: 71 Gender: F Height: 1.57 m Weight: 87.4 kg Last Vital Signs Temp 97.3 F L 06/14/22 10:32 Pulse 90 06/14/22 10:32 Resp 17 06/14/22 10:32 BP 106/72 06/14/22 10:32 Pulse Ox 93 06/14/22 10:32 O2 Del Method Room Air 06/14/22 10:32 Allergies Allergy/AdvReac Type Severity Reaction Status Date / Time No Known Allergies Allergy Verified 06/14/22 10:31 Home Medications Medication Instructions Recorded Confirmed Type omeprazole 40 mg capsule,delayed 40 mg PO DAILY 12/13/21 06/14/22 History release cholecalciferol (vitamin D3) 50 50 mcg PO DAILY #90 tabs 06/08/22 06/14/22 Rx mcg (2,000 unit) tablet etodolac 400 mg tablet 400 mg PO DAILY 06/08/22 06/14/22 History zolpidem 10 mg tablet (Ambien) 10 mg PO QHS PRN Insomnia 06/08/22 06/14/22 History ondansetron 4 mg disintegrating 4 mg PO Q6H PRN nausea and 06/10/22 06/14/22 Rx tablet vomiting #10 tabs Patient hx anesthesia problems: none Family hx anesthesia problems: none Results Review: All pre-operative results and documents have been reviewed as part of the pre-operative evaluation. [facility] Past Medical History Medical History Arthritis Chronic GERD GERD (gastroesophageal reflux disease) Hypertension Lung nodule Osteoporosis Family History Family History Mother Asthma Cerebrovascular accident Father Cancer Heart disease Sibling Cancer Social History Social History Smoking packs per day: 1 Smoking cigarettes per day: 20.0 Years smoked: 53 Smoking pack-years: 53.00 Smoking status: Former smoker Tobacco type: cigarettes Second hand tobacco smoke exposure: Yes Smoking end date: 03/14/21 Alcohol intake: current Alcohol use details: occasionally Substance use: current Substance use type: marijuana Other substance usage details: smokes marijuana daily Living arrangements: with family Gender identity (if verbalized by the patient): Female Sexual Orientation (if Verbalized by the Patient): Straight or Heterosexual Spiritual care concerns: No Agree to blood products: Yes Anes - Eval Final PreProcedure Day of Procedure 06/14/22 10:51 Patient weight: obese Heart: regular rate and rhythm Lungs: clear to auscultation Airway: Mallampati scale class II Neurological: alert and oriented Last oral intake: >/= 8 hours ASA classification: III Emergent: no Anesthetic plan: proceed Anesthesia type and monitoring: general GIVS and standard monitoring Results Review: All pre-operative results and documents have been reviewed as part of the pre-operative evaluation. Informed Consent: The patient's anesthetic plan and its attendant risks and benefits were discussed with the patient/family/POA. Questions were solicited and answers provided to the satisfaction of the patient/family/POA.
[2022-06-14 11:35] VITALS: BP 117/78; PULSE 87; RESP 22; O2SAT 98
[2022-06-14 11:45] VITALS: BP 110/73; PULSE 78; RESP 21; O2SAT 96
[2022-06-14 11:55] VITALS: BP 120/77; PULSE 74; RESP 20; O2SAT 95
== END 2022-06-14 12:45 | disposition home or self-care (01) ==
PROVIDERS: PCP Internal Medicine; Visit Provider Internal Medicine Gastroenterology
PROC: 0DJ08ZZ Inspection of Upper Intestinal Tract, Via Natural or Artificial Opening Endoscopic (ICD-10-PCS; CPT 43235; principal; 2022-06-14 12:30)
DX: K21.9 Gastro-esophageal reflux disease without esophagitis (principal); I10 Essential (primary) hypertension; M81.0 Age-related osteoporosis without current pathological fracture; Z87.891 Personal history of nicotine dependence; E66.9 Obesity, unspecified; Z68.35 Body mass index [BMI] 35.0-35.9, adult
CPT/HCPCS: 43239; 87081; J2704; J7120

== ENCOUNTER → 2022-07-09 11:14 | Outpatient (CLI) | payer MEDICARE, SELFPAY ==
--- NOTE | ~2022-07-09 | US_ITS ---
EXAMINATION: US right upper quadrant DATE: 07/09/2022 11:39 INDICATION: Unspecified abd pain TECHNIQUE: Multiple grayscale and Doppler ultrasound images of the right upper quadrant were obtained . COMPARISON: None available. FINDINGS: The visualized portions of the pancreas are normal. The liver is normal with normal echogen icity and echotexture. Punctate liver calcifications likely representing granulomas. No surface nodul arity. Normal hepatopetal flow in the main portal vein. The gallbladder is normal with no abnormal wa ll thickening, pericholecystic fluid or stones. The common bile duct measures 4 mm. There was no sono graphic Hendrix sign. IMPRESSION: Normal right upper quadrant ultrasound findings. Reviewed, dictated and finalized at location K. [facility]
== END ==
PROVIDERS: PCP Internal Medicine; Visit Provider Internal Medicine
DX: R10.9 Unspecified abdominal pain (principal)
CPT/HCPCS: 76705

== ENCOUNTER 2022-08-16 15:19 | Emergency (ER) | payer MEDICARE, SELFPAY ==
[2022-08-16 15:28] VITALS: BP 121/106; PULSE 88; RESP 16; TEMP 36.7; O2SAT 95
== END 2022-08-16 16:24 | disposition left against medical advice (07) ==
LOC: ANHED 16:49
DX: R11.0 Nausea (principal)
CPT/HCPCS: 99199

== ENCOUNTER 2022-11-03 13:31 | Outpatient (CLI) | payer MEDICARE, SELFPAY ==
--- NOTE | ~2022-11-03 | PE_ITS ---
EXAMINATION: PET skull to mid thigh DATE: 11/03/2022 15:12 INDICATION: Solitary pulmonary nodule TECHNIQUE: Blood glucose level was 94 mg/dL. 10.506 mCi of 18-fluorodeoxyglucose (18-FDG) was adminis tered i.v. Low dose computed tomography (CT) images were acquired from the base of the brain to the p roximal thighs for attenuation correction and anatomic localization. Positron emission tomography (PE T) images were acquired in the same distribution beginning 55 minutes after injection. Images includi ng fused PET/CT images were reconstructed in axial, coronal, and sagittal planes. Automated exposure control technique was employed. The dose-length product was 979.24mGy-cm. COMPARISON: CT abdomen pelvis dated 06/10/2022 FINDINGS: Head/neck: There is symmetric increased activity in the oral cavity, lingual tonsils, parotid glands, submandib ular glands, laryngeal muscles and ocular muscles without CT correlate, likely physiologic. 10 x 6 mm soft tissue density nodule at the posterior margin of the right parotid gland with increased FDG upt ray with maximal SUV of 6.7. No other pathologically enlarged cervical lymphadenopathy or suspicious foci of increased FDG uptake in the visualized head or neck. Chest: Mild emphysema. Linear discoid atelectasis/scarring at the basilar left lower lobe. Subpleural ground glass opacities the surrounding an approximately 8 mm subpleural nodule Middle lobe which appears increased in size from [address] dated 03/17/2020 which is without evident FDG activity. There is minimal FDG activity associated with some of the groundglass opacities but mor e cephalad than the pleural-based nodule. No other suspicious pulmonary nodules. No pleural effusion. Heart size is normal. Atherosclerotic coronary artery calcific location. No pericardial effusion. Ec tatic ascending thoracic aorta measuring up to 4.0 cm . No pathologically enlarged or FDG avid thorac ic lymphadenopathy. There is synovial uptake at the bilateral glenohumeral joints, significantly more prominent on the left where there appears be an associated small glenohumeral joint effusion. Abdomen/pelvis/proximal thighs: Physiologic renal accumulation and excretion of FDG activity in the kidneys, bladder and along portio ns of ureters. Multiple scattered hepatic and splenic calcifications consistent with old granulomatou s disease. Normal degree and heterogenous pattern of increased uptake throughout the liver without ra diologic correlate or dominant FDG avid lesion. The gallbladder, pancreas, spleen and bilateral adren al glands are normal. Mild uptake scattered throughout the bowels without radiologic correlate, also likely physiologic. There is moderate colonic diverticulosis with a sigmoid predominance. There is n o adjacent inflammatory change to suggest diverticulitis. Normal appendix. Uterus and bilateral adnex a are unremarkable. Small fat-containing umbilical hernia. Mild increased FDG uptake with maximal SUV of 5.0/oh with a left external iliac chain lymph node which measures up to 10 mm maximal short axis diameter which is without significant interval change since CT dated 06/02/2022. There is a band of d ecreased activity extending across the pelvis at the level of the sacrococcygeal junction which is of indeterminate etiology. No other abnormal foci of increased FDG uptake or pathologically enlarged ly mphadenopathy in the abdomen, pelvis or proximal thighs. There is increased synovial uptake about the left hip joint. IMPRESSION: 1. No FDG uptake associated with an 8 mm pleural-based nodules in the right middle lobe. While reassu ring would consider 6 month follow-up low-dose noncontrast chest CT. 2. Increased FDG uptake associated with a 10 x 6 mm nodule in the right parotid gland which could rep resent a lymph node either reactive or metastatic or parotid neoplasm similarly either benign or alexus gnant. Consider ult
[2022-11-03 13:57] LABS: Glucose Point of Care 94 mg/dl (65-105)
== END 2022-11-03 13:32 | disposition home or self-care (01) ==
PROVIDERS: PCP Internal Medicine; Visit Provider Internal Medicine
DX: R91.8 Other nonspecific abnormal finding of lung field (principal); R93.6 Abnormal findings on diagnostic imaging of limbs
CPT/HCPCS: 78815; A9552

== ENCOUNTER 2023-01-02 09:01 | Outpatient (CLI) | payer MEDICARE, SELFPAY ==
--- NOTE | ~2023-01-02 | US_ITS ---
EXAMINATION: US FNA w image guidance DATE: 01/02/2023 10:14 INDICATION: Right parotid nodule TECHNIQUE: A time-out was performed to verify the patient's name, date of , and procedure to be performed . The procedure and its benefits and risks were discussed with the patient. Risks specifically discus sed included bleeding and infection. The patient understood the risks and agreed to proceed. Shade Hanger ul trasound images were compared with prior PET/CT and a hypoechoic nodule which appear to correspond to the lesion of concern was identified based upon location relative to the mandible, retromandibular v ein and anterior margin of the sternocleidomastoid muscle. The neck was prepped and draped in the usu al sterile manner. 3 mL 1% lidocaine was used for local anesthesia. 6 passes were made with a 25G n eedle into the lesion. Appropriate needle location was documented with continuous sonographic guidan ce. A sterile bandage was applied. There were no immediate complications. FINDINGS: Grayscale ultrasound images demonstrate biopsy needles advanced into an approximately 11 x 5 mm hypoe choic nodule along the posterior margin of the inferior right parotid which corresponds in size and l ocation to the lesion of concern on prior PET/CT. IMPRESSION: 1. Successful ultrasound-guided fine needle aspiration of an 11 x 5 mm hypoechoic nodule along the p osterior margin of the inferior right parotid. Reviewed, dictated and finalized at location A. IMPRESSION: 1. Successful ultrasound-guided fine needle aspiration of an 11 x 5 mm hypoech oic nodule along the posterior margin of the inferior right parotid.
== END 2023-01-02 09:02 | disposition home or self-care (01) ==
PROVIDERS: PCP Internal Medicine; Visit Provider Nurse Practitioner Family
DX: K11.8 Other diseases of salivary glands (principal)
CPT/HCPCS: 10005; 88108; 88305

== ENCOUNTER → 2023-09-08 14:02 | Outpatient (CLI) | payer MEDICARE, SELFPAY ==
--- NOTE | ~2023-09-08 | MR_ITS ---
EXAMINATION: MR knee RT wo con DATE: 09/08/2023 14:35 INDICATION: Right knee pain. Right knee osteoarthritis. TECHNIQUE: Magnetic resonance imaging (MRI) of the right knee was performed without intravenous contr ast. Sequences included axial PD-weighted FS FSE, coronal PD-weighted FSE and PD-weighted FS FSE, sag ittal PD-weighted FSE, and sagittal T2-weighted FS FSE. COMPARISON: Right knee radiographs 06/08/2022 FINDINGS: Medial compartment: There is a complex tear involving posterior horn of medial meniscus. There is shallow partial-thickne ss cartilage loss of tibial condyle. There is subchondral edema-like marrow signal intensity of tibia l condyle posteriorly. There is partial-thickness cartilage loss of femoral condyle, deep at the cent ral articular surface with mild subchondral edema-like marrow signal intensity. Lateral compartment: Lateral meniscus is normal. There is cartilage surface irregularity of tibial condyle and femoral con dyle. Patellofemoral compartment: There is partial-thickness cartilage loss of patella, deep at the medial facet, median ridge, and lat eral facet with moderate subchondral edema-like marrow signal intensity. There is shallow partial-thi ckness cartilage loss of trochlea. Ligaments and tendons: Anterior and posterior cruciate ligaments are normal. Medial collateral ligament and lateral collater al ligament complex are normal. There is mild patellar tendinopathy. Fluid: There is a moderate-sized knee joint effusion with synovitis. IMPRESSION: 1. Moderate chondrosis of medial and patellofemoral compartments and mild chondrosis of lateral gt rtment. 2. Tear of medial meniscus. 3. Moderate-sized knee joint effusion with synovitis. Reviewed, dictated and finalized at location E. FRYER ASSEMBLER IMPRESSION: 1. Moderate chondrosis of medial and patellofemoral compartments and mild chond rosis of lateral compartment. 2. Tear of medial meniscus. 3. Moderate-sized knee joint effusion with synovitis.
== END ==
PROVIDERS: PCP Physician Assistant Surgical; Visit Provider Physician Assistant Surgical
DX: S83.241A Other tear of medial meniscus, current injury, right knee, initial encounter (principal); M17.11 Unilateral primary osteoarthritis, right knee; M94.261 Chondromalacia, right knee; M25.461 Effusion, right knee; X58.XXXA Exposure to other specified factors, initial encounter
CPT/HCPCS: 73721

== ENCOUNTER 2023-11-07 10:28 | Outpatient (CLI) | payer MEDICARE, SELFPAY ==
--- NOTE | ~2023-11-07 | XR_ITS ---
EXAMINATION: XR foot LT standing 2V INDICATION: Osteoarthritis TECHNIQUE: Two views of the left foot are obtained. COMPARISON: None available FINDINGS: Bone alignment is normal. There is no fracture. Pes planus is noted. There is a plantar melissa caneal enthesophyte. There is mild osteoarthritis of multiple interphalangeal joints with fusion at t he fifth distal interphalangeal joint. IMPRESSION: 1. Polyarticular osteoarthritis without acute osseous abnormality. Reviewed, dictated and finalized at location F.
--- NOTE | ~2023-11-07 | XR_ITS ---
EXAMINATION: XR foot RT standing 2V INDICATION: Osteoarthritis TECHNIQUE: Two views of the right foot are obtained. COMPARISON: None available FINDINGS: There appears to be mild subluxations at the third and fourth proximal interphalangeal join ts. There is mild osteoarthritis of multiple interphalangeal joints. No fracture is identified. There is fusion at the fifth distal interphalangeal joint. A plantar calcaneal enthesophyte is noted. Ther e is pes planus. IMPRESSION: 1. Polyarticular osteoarthritis without acute osseous abnormalities. Reviewed, dictated and finalized at location F.
--- NOTE | ~2023-11-07 | XR_ITS ---
XR hand BI arthritis min 3V 11/07/2023 11:23 Indication: Osteoarthritis Procedure: 4 views each hand Comparison: No prior studies for comparison. Findings: Osteopenia. Mild bilateral symmetric polyarticular osteoarthritis. No fracture or traumatic malalignment. No foreign bodies. No focal soft tissue abnormality. There is an old healed right radi al styloid fracture. Impression: 1: Mild bilateral symmetric polyarticular osteoarthritis of the hands. 2: Osteopenia. Reviewed, dictated and finalized at location B. Impression: 1: Mild bilateral symmetric polyarticular osteoarthritis of the hands. 2: Osteopenia.
[2023-11-07 12:07] LABS: Hematocrit 38.4 % (37.0-47.0); Hemoglobin 11.4 g/dL (12.0-15.0); Mean Corpuscular HGB Conc 29.7 g/dl (32-36); Mean Corpuscular Hemoglobin 24.3 pg (26-34); Mean Corpuscular Volume 81.7 fl (80-100); Mean Platelet Volume 9.5 fl (7.4-10.4); Platelet Count Result 407 k/mm3 (150-375); Red Cell Distribution Width 15.8 % (11.5-14.5); White Blood Count 10.9 K/mm3 (4.5-10.0)
[2023-11-07 12:21] LABS: Alanine Aminotransferase 10 U/L (6-35); Albumin Level 3.9 g/dL (3.5-5.1); Alkaline Phosphatase 95 U/L (38-126); Anion Gap 5 mmol/L (4-12); Aspartate Amino Transferase 19 U/L (14-36); Bilirubin,Total 0.7 mg/dL (0.2-1.3); Blood Urea Nitrogen 15 mg/dL (7-17); CRP 6.3 mg/dL (<1.0); Calcium 10.4 mg/dL (8.4-10.2); Carbon Dioxide 30 mmol/L (22-30); Chloride 100 mmol/L (98-107); Estimated Glomerular Filt Rate 55; Glucose 103 mg/dL (65-110); Potassium 4.3 mmol/L (3.4-5.0); Sodium 135 mmol/L (137-145); Uric Acid 5.8 mg/dL (2.5-7.5)
[2023-11-07 12:25] LABS: Complement C3 141 mg/dL (88-165); Rheumatoid Factor 25.1 IU/ML (<12)
[2023-11-07 12:51] LABS: Erythrocyte Sedimentation Rate 41 mm/hr (0-20)
[2023-11-07 15:33] LABS: Hepatitis C Virus Antibody Reactive (Negative)
[2023-11-09 13:19] LABS: NIL 0.01 IU/mL; Quantiferon TB Plus, 1T NEGATIVE (NEGATIVE)
[2023-11-09 17:58] LABS: SM Antibody <1.0; SM/RNP Antibody <1.0; SS-A <1.0; SS-B <1.0
[2023-11-09 21:08] LABS: Anti Cyclic Citrullinated Pept >250 Units (<20)
[2023-11-10 15:25] LABS: Hepatitis C RNA, Quant PCR <15 IU/mL
== END 2023-11-07 10:29 | disposition home or self-care (01) ==
PROVIDERS: PCP Internal Medicine; Visit Provider Internal Medicine
DX: R89.9 Unspecified abnormal finding in specimens from other organs, systems and tissues (principal); M06.042 Rheumatoid arthritis without rheumatoid factor, left hand; M06.041 Rheumatoid arthritis without rheumatoid factor, right hand; M19.90 Unspecified osteoarthritis, unspecified site; M19.042 Primary osteoarthritis, left hand; M19.041 Primary osteoarthritis, right hand; M85.88 Other specified disorders of bone density and structure, other site; M19.072 Primary osteoarthritis, left ankle and foot; M19.071 Primary osteoarthritis, right ankle and foot
CPT/HCPCS: 36415; 73130; 73620; 80053; 84550; 85027; 85652; 86038; 86140; 86160; 86200; 86225; 86235; 86430; 86480; 86803; 87522

== ENCOUNTER 2024-04-18 10:48 | Outpatient (CLI) | payer MEDICARE, SELFPAY ==
[2024-04-18 11:48] LABS: Basophils Absolute Auto 0.1 K/mm3 (0.0-0.1); Basophils Percent Auto 0.9 % (0.2-1.2); Eosinophils Absolute Auto 0.4 K/mm3 (0-0.3); Eosinophils Percent Auto 3.2 % (0-4.4); Hematocrit 36.9 % (37.0-47.0); Hemoglobin 10.4 g/dL (12.0-15.0); Immature Granulocyte Absolute 0.05 K/mm3 (0.00-0.031); Immature Granulocyte Percent A 0.4 % (0-0.5); Lymphocytes Absolute Auto 2.47 K/mm3 (0.9-3.2); Lymphocytes Percent Auto 20.7 % (18.3-44.2); Mean Corpuscular HGB Conc 28.2 g/dl (32-36); Mean Corpuscular Hemoglobin 21.6 pg (26-34); Mean Corpuscular Volume 76.6 fl (80-100); Monocytes Percent Auto 8.3 % (2.6-8.5); Neutrophils Absolute Auto 7.9 K/mm3 (1.3-6.7); Neutrophils Percent Auto 66.5 % (45.5-73.1); Platelet Count Result 425 k/mm3 (150-375); Red Blood Count 4.82 M/mm3 (4.2-5.4); Red Cell Distribution Width 17.3 % (11.5-14.5); White Blood Count 11.9 K/mm3 (4.5-10.0)
[2024-04-18 11:54] LABS: Anisocytosis 1+; Hypochromasia 1+; Microcytosis 1+ (NORMAL); Platelet Estimate Increased (Adequate); Schistocytes None Seen
[2024-04-18 11:55] LABS: Ovalocytes 1+; Poikilocytosis 1+
[2024-04-18 12:55] LABS: Iron 31 ug/dL (37-170)
[2024-04-18 12:57] LABS: Alanine Aminotransferase 13 U/L (6-35); Albumin Level 3.9 g/dL (3.5-5.1); Alkaline Phosphatase 112 U/L (38-126); Anion Gap 9 mmol/L (4-12); Aspartate Amino Transferase 20 U/L (14-36); Bilirubin,Total 0.5 mg/dL (0.2-1.3); Blood Urea Nitrogen 20 mg/dL (7-17); Calcium 9.5 mg/dL (8.4-10.2); Carbon Dioxide 28 mmol/L (22-30); Chloride 100 mmol/L (98-107); Estimated Glomerular Filt Rate > 60; Glucose 82 mg/dL (65-110); Potassium 4.3 mmol/L (3.4-5.0); Sodium 137 mmol/L (137-145)
[2024-04-18 12:58] LABS: Albumin Level 3.8 g/dL (3.5-5.1); Anion Gap 8 mmol/L (4-12); Blood Urea Nitrogen 19 mg/dL (7-17); Calcium 9.7 mg/dL (8.4-10.2); Carbon Dioxide 28 mmol/L (22-30); Chloride 101 mmol/L (98-107); Estimated Glomerular Filt Rate > 60; Glucose 84 mg/dL (65-110); Potassium 4.3 mmol/L (3.4-5.0); Sodium 137 mmol/L (137-145)
[2024-04-18 12:59] LABS: Creatinine Urine 288.1 mg/dL; Total Protein Urine Random 15 mg/dL; Ur Ttl Prot Creatinine Ratio 0.05 mg/mg (0-0.20)
[2024-04-18 13:08] LABS: Percent Iron Saturation 8 % (20-50)
[2024-04-18 13:30] LABS: Ferritin 7.52 ng/mL (11.1-264)
[2024-04-18 14:02] LABS: Folic Acid 6.9 ng/mL (2.76->20); Vitamin B12 < 159.0 pg/mL (239-931)
[2024-04-20 13:13] LABS: Protein, Total 6.9 g/dL (6.1-8.1)
[2024-04-20 13:24] LABS: Anti Glomerular Basement Memb <1.0 AI
[2024-04-22 09:54] LABS: Methylmalonic Acid 260 nmol/L (69-390)
[2024-04-22 11:04] LABS: Kappa\\Lambda Light Chains 1.44 (0.26-1.65)
[2024-04-22 12:49] LABS: Creatinine, Random Urine 249 mg/dL (20-275); Total Prot/Creat ratio mg/mg 0.084 (0.024-0.184); Total Protein/Creatinine Ratio 84 mg/g creat (24-184)
[2024-04-22 15:58] LABS: Abnormal Protein Band 1 0.2 g/dL (NONE DETECTED); Abnormal Protein Band 2 0.2 g/dL (NONE DETECTED); Albumin 3.2 g/dL (3.8-4.8); Alpha 1 Globulin 0.4 g/dL (0.2-0.3); Alpha 2 Globulin 0.8 g/dL (0.5-0.9); Beta 1 Globulin 0.5 g/dL (0.4-0.6); Gamma Globulin 1.4 g/dL (0.8-1.7)
[2024-04-23 11:38] LABS: ANCA Screen NEGATIVE (NEGATIVE)
[2024-04-25 14:17] LABS: Soluble Transferrin Receptor 3.37 mg/L (0.76-1.76)
== END 2024-04-18 10:49 | disposition home or self-care (01) ==
LOC: ANHLAB 10:50
PROVIDERS: Internal Medicine Nephrology; PCP Internal Medicine; Visit Provider Internal Medicine Hematology & Oncology
DX: I12.9 Hypertensive chronic kidney disease with stage 1 through stage 4 chronic kidney disease, or unspecified chronic kidney disease (principal); N18.31 Chronic kidney disease, stage 3a
CPT/HCPCS: 36415; 80053; 80069; 82570; 82607; 82728; 82746; 83520; 83540; 83550; 83883; 83921; 84155; 84156; 84165; 84166; 84238; 85025; 86036

== ENCOUNTER 2024-04-30 12:45 | Outpatient (CLI) | payer MEDICARE, SELFPAY ==
--- NOTE | ~2024-04-30 | US_ITS ---
EXAMINATION: US renal BI DATE: 04/30/2024 13:30 INDICATION: Stage IIIa chronic kidney disease TECHNIQUE: Multiple ultrasound grayscale images of the kidneys were obtained. COMPARISON: None. FINDINGS: The right kidney measures 10.1 x 4.7 x 4.9 cm. The left kidney measures 9.7 x 4.5 x 4.5 cm. The kidne ys demonstrate normal echogenicity. There is mild left hydronephrosis. No right-sided hydronephrosis. There is no hydronephrosis in either kidney. No stones identified. The bladder is normal. Multiple right-sided but no left-sided ureteral jets identified in the bladder on color Doppler. IMPRESSION: 1. Mild left hydronephrosis with no observed left-sided ureteral jets in the bladder. Could consider further evaluation with CT to assess for potential obstructing lesions. Reviewed, dictated and finalized at location B. IMPRESSION: 1. Mild left hydronephrosis with no observed left-sided ureteral jets in the b ladder. Could consider further evaluation with CT to assess for potential obstr ucting lesions.
== END 2024-04-30 12:46 | disposition home or self-care (01) ==
LOC: ANHIMG 12:48
PROVIDERS: PCP Internal Medicine; Visit Provider Internal Medicine Nephrology
DX: I12.9 Hypertensive chronic kidney disease with stage 1 through stage 4 chronic kidney disease, or unspecified chronic kidney disease (principal); N18.31 Chronic kidney disease, stage 3a
CPT/HCPCS: 76775

== ENCOUNTER 2024-09-23 12:06 | Outpatient (CLI) | payer MEDICARE, SELFPAY ==
--- NOTE | ~2024-09-23 | MM_ITS ---
EXAMINATION: MM screening kaylynn BI w nancy HISTORY: Screening TECHNIQUE: Craniocaudal and mediolateral oblique 3-D tomosynthesis images were obtained and synthetic 2-D images were generated. CAD analysis was submitted and interpreted. COMPARISON: Comparison to multiple prior studies sequentially, with oldest reviewed study dated 12/29. BREAST PARENCHYMAL COMPOSITION: Not dense: There are scattered areas of fibroglandular density. FINDINGS: There is no evidence of suspicious mass, calcification, or architectural distortion to sugg est malignancy in either breast. There has been no suspicious interval change. IMPRESSION: 1. No mammographic evidence of malignancy. 2. Recommend routine screening mammography in one year. BI-RADS Category 1: Negative Reviewed, dictated and finalized at location B. QUALITY SPECIALIST
== END 2024-09-23 12:07 | disposition home or self-care (01) ==
LOC: MICIMG 12:07
PROVIDERS: PCP Internal Medicine; Visit Provider Internal Medicine
DX: Z12.31 Encounter for screening mammogram for malignant neoplasm of breast (principal)
CPT/HCPCS: 77063; 77067

== ENCOUNTER 2024-10-07 11:37 | Outpatient (CLI) | payer MEDICARE, SELFPAY ==
[2024-10-07 12:58] LABS: Add Urine Microscopic? YES; Appearance Urine Clear (Clear); Bacteria Urine None Seen /hpf; Bilirubin Urine Negative (Negative); Blood Urine Negative (Negative); Color Urine Dark Yellow (Yellow); Glucose Urine UA Negative (Negative); Ketones Urine Trace mg/dL (Negative); Leukocyte Esterase Ur Negative LEU/UL (Negative); Nitrate Urine Negative (Negative); Non Pathogenic Casts 0-2; Protein Urine 1+ mg/dL (Negative); RBC Urine 0-2 /hpf (0-2); Specific Grav Ur 1.021 (1.001-1.035); Squamous Epithelial Cell Urine Occasional /hpf (Few); WBC Urine 0-5 /hpf (0-3); pH Urine 5.5 (5.0-9.0)
[2024-10-07 13:04] LABS: Basophils Absolute Auto 0.1 K/mm3 (0.0-0.1); Basophils Percent Auto 1.3 % (0.2-1.2); Eosinophils Absolute Auto 0.4 K/mm3 (0-0.3); Eosinophils Percent Auto 7.9 % (0-4.4); Hematocrit 44.3 % (37.0-47.0); Hemoglobin 13.9 g/dL (12.0-15.0); Immature Granulocyte Absolute 0.01 K/mm3 (0.00-0.031); Immature Granulocyte Percent A 0.2 % (0-0.5); Lymphocytes Absolute Auto 1.15 K/mm3 (0.9-3.2); Lymphocytes Percent Auto 21.2 % (18.3-44.2); Mean Corpuscular HGB Conc 31.4 g/dl (32-36); Mean Corpuscular Hemoglobin 26.8 pg (26-34); Mean Corpuscular Volume 85.5 fl (80-100); Mean Platelet Volume 10.4 fl (7.4-10.4); Monocytes Absolute Auto 0.7 K/mm3 (0.1-0.6); Monocytes Percent Auto 12.5 % (2.6-8.5); Neutrophils Absolute Auto 3.1 K/mm3 (1.3-6.7); Neutrophils Percent Auto 56.9 % (45.5-73.1); Platelet Count Result 206 k/mm3 (150-375); Red Blood Count 5.18 M/mm3 (4.2-5.4); Red Cell Distribution Width 16.1 % (11.5-14.5); White Blood Count 5.4 K/mm3 (4.5-10.0)
[2024-10-07 13:09] LABS: Cholesterol 142 mg/dL (0-200); HDL Direct 57 mg/dL; Triglycerides 133 mg/dL (<150)
[2024-10-07 13:10] LABS: Alanine Aminotransferase 14 U/L (6-35); Albumin Level 3.6 g/dL (3.5-5.1); Alkaline Phosphatase 113 U/L (38-126); Anion Gap 6 mmol/L (4-12); Aspartate Amino Transferase 22 U/L (14-36); Bilirubin,Total 0.8 mg/dL (0.2-1.3); Blood Urea Nitrogen 15 mg/dL (7-17); CRP 0.9 mg/dL (<1.0); Calcium 9.4 mg/dL (8.4-10.2); Carbon Dioxide 28 mmol/L (22-30); Chloride 103 mmol/L (98-107); Estimated Glomerular Filt Rate > 60; Glucose 94 mg/dL (65-110); Phosphorus 3.7 mg/dL (2.5-4.5); Potassium 3.6 mmol/L (3.4-5.0); Sodium 137 mmol/L (137-145)
[2024-10-07 13:20] LABS: LDL Cholesterol Direct 45 mg/dL
[2024-10-07 13:31] LABS: Free T4 Free Thyroxine 1.27 ng/dL (0.78-2.19)
--- OUTSIDE RECORDS SUMMARY | 2024-10-07 13:40 | XMS_ITS | Encounter Summary ---
Author Organization [facility] Address [address] [place] [address] Phone Care Team Providers Care Double End Chucking Machine Operator Name Role Phone Dario Leone MD Unavailable [phone] Mila Mishra MD Unavailable [phone] Omkar Allison MD Primary Care Provide r Angel Yan MD Unavailable [phone] Encounter Details Date Type Department Care Team (Late st Contact Info) Description 05/17/2023 Orders Only [facility] Surgery [address] [facility] [address] [address] [place] [id number] [place] [address] [address] [facility] [address] [place] [address] Social History Tobacco Use Types Packs/Day Years Used Date Smoking Tobacco: Former Cigarettes 2 50 0 12/13/1971 - 12/12/2021 Smokeless Tobacco: Never OASIS D0700: Social Isolation Answer Da te Recorded Frequency of experiencing loneliness or isolatio n Never 05/08/2023 OASIS A1250: Transportation Answer Date Recorded Lack of Transportation (Medical) No 05/08/2023 Lack of Transportation (Non-Medical) No 05/08/2023 Patient Unable or Declines to Respond No 05/08/2023 OASIS B1300: Health Literacy Answer Chris e Recorded Frequency of needing help to read materials from doctor or pharmacy Rarely 05/08/2023 Social Connection and Isolat ion Panel [NHANES] Answer Date Recorded In a typical week, how many times do you talk on the phone with family, friends, or neighbors? More than three times a week 05/01/2023 How often do you get togethe r with friends or relatives? More than three times a week 05/01/2023 How often do you attend chur ch or oriental orthodox services? Never 05/01/2023 Do you belong to any clubs o r organizations such as religious groups, unions, fraternal or athletic groups, or school groups? No 05/01/2023 How often do you attend meet ings of the clubs or organizations you belong to? Never 05/01/2023 Are you , , di vorced, , never , or living with a partner? 05/01/2023 AUDIT-C Answer Date Recorded Q1: How often do you have a drink containing alcohol? Never 04/29/2023 Q2: How many drinks containi ng alcohol do you have on a typical day when you are drinking? Patient does not drink Q3: How often do you have si x or more drinks on one occasion? Never 04/29/2023 Overall Financial Resource Strain (CARDIA) Answe r Date Recorded How hard is it for you to pa y for the very basics like food, housing, medical care, and heating? Not hard at all 05/01/2023 Hunger Vital Sign Answer Date Recorded Within the past 12 months, y ou worried that your food would run out before you got the money to buy more. Never true 05/01/20 23 Within the past 12 months, t he food you bought just didn't last and you didn't have money to get more. Never true 05/01/2023 PRAPARE - Transportation Answer Date Re corded In the past 12 months, has l ack of transportation kept you from medical appointments or from getting medications? No 04/14 In the past 12 months, has l ack of transportation kept you from meetings, work, or from getting things needed for daily living? No 05/01/2023 Housing Stability Vital Sign Answer Chris e Recorded In the last 12 months, was t here a time when you were not able to pay the mortgage or rent on time? No 05/01/2023 In the last 12 months, how many places have you lived? 1 05/01/2023 In the last 12 months, was t here a time when you did not have a steady place to sleep or slept in a mcfp (including now)? 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 Gender Identity Not on file Sexual Orientation Not on file documented as of this encounter Plan of Treatment Not on file documented as of this encounter Visit Diagnoses Not on filedocumented in this encounter Care Teams Double End Chucking Machine Operator Relationship Specialty Start Date End Date Omkar Allison MD [address] [facility] [address] [place] [address] PCP - General Internal Medicine 05/05/23 [place] [address] [facility] [address] [place] [address] Surgeon Trauma Surgery 05/05/23 Mila Mishra MD [address] [place] [id number] Consulting Physician Nephrology 05/05/23 Angel Yan MD [address] [facility] [id number] [place] [address] Surgeon Colon and Rectal Surgery 10/19/23 documented as of this encounter
--- OUTSIDE RECORDS SUMMARY | 2024-10-07 13:40 | XMS_ITS | Encounter Summary ---
Author Organization [facility] Address [address] [place] [address] Care Team Providers Care Electro Mechanical Engineer Name Role Phone Dario Leone MD Unavailable [phone] Mila Mishra MD Unavailable [phone] Omkar Allison MD Primary Care Provide r Angel Yan MD Unavailable [phone] Encounter Details Date Type Department Care Team (Late st Contact Info) Description 11/15/2023 Telephone [facility] Radiology [address] [place] [address] Jennifer Jarrell RN Social History Tobacco Use Types Packs/Day Years Used Date Smoking Tobacco: Former Cigarettes 2 53.3 1 969 - 12/2021 Passive Smoke Exposure: Current Smokeless Tobacco: Never OASIS D0700: Social Isolation Answer Da te Recorded Frequency of experiencing loneliness or isolatio n Never 10/31/2023 OASIS A1250: Transportation Answer Date Recorded Lack of Transportation (Medical) No 10/31/2023 Lack of Transportation (Non-Medical) No 10/31/2023 Patient Unable or Declines to Respond No 10/31/2023 OASIS B1300: Health Literacy Answer Chris e Recorded Frequency of needing help to read materials from doctor or pharmacy Never 10/31/2023 [facility] Utilities Answer Date Recorded In the past 12 months has th e electric, gas, oil, or water company threatened to shut off services in your home? No 05/31/2023 Social Connection and Isolat ion Panel [NHANES] Answer Date Recorded In a typical week, how many times do you talk on the phone with family, friends, or neighbors? More than three times a week 05/31/2023 How often do you get togethe r with friends or relatives? More than three times a week 05/31/2023 How often do you attend chur ch or restorationism services? Never 05/31/2023 Do you belong to any clubs o r organizations such as voodoo groups, unions, fraternal or athletic groups, or school groups? No 05/31/2023 How often do you attend meet ings of the clubs or organizations you belong to? Never 05/31/2023 Are you , , di vorced, , never , or living with a partner? 05/31/2023 AUDIT-C Answer Date Recorded Q1: How often do you have a drink containing alcohol? Never 11/16/2023 Q2: How many drinks containi ng alcohol do you have on a typical day when you are drinking? Patient does not drink Q3: How often do you have si x or more drinks on one occasion? Never 11/16/2023 Overall Financial Resource Strain (CARDIA) Answe r Date Recorded How hard is it for you to pa y for the very basics like food, housing, medical care, and heating? Not hard at all 05/31/2023 Hunger Vital Sign Answer Date Recorded Within the past 12 months, y ou worried that your food would run out before you got the money to buy more. Never true 05/31/20 23 Within the past 12 months, t he food you bought just didn't last and you didn't have money to get more. Never true 05/31/2023 PRAPARE - Transportation Answer Date Re corded In the past 12 months, has l ack of transportation kept you from medical appointments or from getting medications? No 05/14 In the past 12 months, has l ack of transportation kept you from meetings, work, or from getting things needed for daily living? No 05/31/2023 Housing Stability Vital Sign Answer Chris e Recorded In the last 12 months, was t here a time when you were not able to pay the mortgage or rent on time? No 05/31/2023 In the last 12 months, how many places have you lived? 1 05/31/2023 In the last 12 months, was t here a time when you did not have a steady place to sleep or slept in a senior care (including now)? No 05/31/2023 Personal Safety Answer Date Recorded Have you ever been in or are you currently in a harmful physical or emotional relationship or is someone making you feel afraid or unsafe? Denies 09/25/2023 Comments No Sex and Gender Information Value Date Recorded Sex Assigned at Not on file Legal Sex Female 10:37 AM DOUGH SCALER AND MIXER Gender Identity Not on file Sexual Orientation Not on file documented as of this encounter Functional Status documented as of this encounter Plan of Treatment Not on file documented as of this encounter Visit Diagnoses Not on filedocumented in this encounter Care Teams Electro Mechanical Engineer Relationship Specialty Start Date End Date Omkar Allison MD [address] [facility] [address] [place] [address] PCP - General Internal Medicine 05/05/23 [place] [address] [facility] [address] [place] [address] Surgeon Trauma Surgery 05/05/23 Mila Mishra MD [address] [place] [address] [place] [address] Consulting Physician Nephrology 05/05/23 Angel Yan MD [address] [facility] [id number] [place] [address] Surgeon Colon and Rectal Surgery 10/19/23 documented as of this encounter
--- OUTSIDE RECORDS SUMMARY | 2024-10-07 13:40 | XMS_ITS | Encounter Summary ---
Author Organization [facility] Healthcare Address [address] [place] [address] Care Team Providers Care Chute Tapper Name Role Phone Dario Leone MD Unavailable [phone] Mila Mishra MD Unavailable [phone] Omkar Allison MD Primary Care Provide r Angel Yan MD Unavailable [phone] Encounter Details Date Type Department Care Team (Late st Contact Info) Description 11/08/2023 Telephone [facility] Radiology [address] [place] [address] Jennifer Jarrell RN Social History Tobacco Use [...] materials from doctor or pharmacy Never 10/31/2023 [facility] Utilities Answer Date Recorded In the past [...] often do you attend chur ch or nondenominational services? Never 05/31/2023 Do you belong to any clubs o r organizations such as scientologist groups, unions, fraternal or athletic groups, or school groups? No 05/31/2023 How often do you attend meet ings of the clubs or organizations you belong to? Never 05/31/2023 Are you , , di vorced, , never , or living with a partner? 05/31/2023 AUDIT-C Answer Date Recorded Q1: How often do you have a drink containing alcohol? Never 11/08/2023 Q2: How many drinks containi ng alcohol do you have on a typical day when you are drinking? Patient does not drink Q3: How often do you have si x or more drinks on one occasion? Never 11/08/2023 Overall Financial Resource Strain (CARDIA) Answe r [...] place to sleep or slept in a snf (including now)? No 05/31/2023 Personal Safety Answer Date Recorded Have you ever been in or are you currently in a harmful physical or emotional relationship or is someone making you feel afraid or unsafe? Denies 09/25/2023 Comments No Sex and Gender Information Value Date Recorded Sex Assigned at Not on file Legal Sex Female 10:37 AM WEED THINNER Gender Identity Not on file Sexual Orientation Not on file documented as of this encounter Functional Status documented as of this encounter Plan of Treatment Not on file documented as of this encounter Visit Diagnoses Not on filedocumented in this encounter Care Teams Chute Tapper Relationship Specialty Start Date End Date Omkar Allison MD [address] [facility] [address] [place] [address] PCP - General Internal Medicine 05/05/23 [place] [address] [facility] [address] [place] [address] Surgeon Trauma Surgery 05/05/23 Mila Mishra MD [address] [place] [address] [place] [address] Consulting Physician Nephrology 05/05/23 Angel Yan MD [address] [facility] [id number] [place] [address] Surgeon Colon and Rectal Surgery 10/19/23 documented as of this encounter
--- OUTSIDE RECORDS SUMMARY | 2024-10-07 13:40 | XMS_ITS | Referral Summary ---
Author Organization [facility] Address [address] [place] [address] Care Team Providers Care Wilton Weaver Name Role Phone Dario Leone MD Unavailable [phone] Mila Mishra MD Unavailable [phone] Omkar Allison MD Primary Care Provide r Angel Yan MD Unavailable [phone] Allergies No known active allergies Medications omeprazole (PriLOSEC) 40 mg capsuleIndicatio ns:Stress Ulcer Prophylaxis,acid reflux Take 1 capsule (40 mg total) by mouth as needed (GERD) 10/03/19 19 Active zolpidem (AMBIEN) 10 mg tablet Take 0.5 tablets (5 mg total) by mouth nightly as needed for sleep 30 tablet 05/05/20 23 Active Additional Information Patient taking differently: 10 mgoralNightly, Indications: Sleep-Onset Insomnia, Informant: Self, Reported on 09/15/2023 traMADoL (ULTRAM) 50 mg tabletIndication s:Pain Take 1 tablet (50 mg total) by mouth as needed for pain Active Prolia 60 mg/mL syringeIndicatio ns:postmenopausa l osteoporosis and high fracture risk Inject 1 mL (60 mg total) under the skin every 6 (six) months Last dose 05/202306/06/20 23 Active acetaminophen (TYLENOL) 500 mg tabletIndication s:Pain Take 2 tablets (1,000 mg total) by mouth as needed for pain or headaches 2 tablets Active sertraline (ZOLOFT) 25 mg tabletIndication s:Anxiety with Depression Take 1 tablet (25 mg total) by mouth every morning 09/11/19 24 Active hydroxychloroqui ne (PLAQUENIL) 200 mg tabletIndication s:Rheumatoid Arthritis Take 2 tablets (400 mg total) by mouth every morning 10/17/19 24 Active naproxen (NAPROSYN) 500 mg tabletIndication s:Anti-inflammat ory,Pain Take 1 tablet (500 mg total) by mouth as needed for pain Active polyethylene glycol (MIRALAX) 17 gram/dose bulk powder Take 238 g by mouth once for 1 dose The day before surgery mix 238 grams Miralax with 64 ounces clear liquid. 11 AM begin drinking Miralax 8 ounces every 15 minutes until finished for bowel evacuation. 238 g 12/06/19 24 Active bisacodyL 5 mg tablet The day before surgery take 2 tabs at 10 am with 8 oz of clear liquid. At 12 pm, take 2 more tabs with 8 oz of clear liquid. 4 tablet 12/06/19 24 Active neomycin (MYCIFRADIN) 500 mg tablet The day before surgery take neomycin 1000 mg (2 tablets) by mouth at 1 PM, 2 PM, and 10 PM. 6 tablet 12/06/19 24 Active metroNIDAZOLE (FLAGYL) 500 mg tablet The day before surgery take metronidazole (Flagyl) 500 mg by mouth at 1 PM, 2 PM, and 10 PM. 3 tablet 12/06/19 24 Active polyethylene glycol (GoLYTELY) 236-22.74-6.74 -5.86 gram solution Drink first half of prep at 6:00pm the night before procedure. Drink second half of prep 4 hours prior to leaving home for procedure. 4000 mL 12/07/19 24 Active gabapentin (NEURONTIN) 300 mg capsuleIndicatio ns:Pain Take 1 capsule (300 mg total) by mouth every 12 (twelve) hours 60 capsule 11 12/15/19 24 025 Active ibuprofen (ADVIL,MOTRIN) 600 mg tabletIndication s:Pain Take 1 tablet (600 mg total) by mouth every 8 (eight) hours 30 tablet 12/15/19 24 Active oxyCODONE (ROXICODONE) 5 mg immediate release tabletIndication s:Pain Take 1 tablet (5 mg total) by mouth every 6 (six) hours as needed for pain 20 tablet 12/15/19 24 Active oxyBUTYnin (DITROPAN) 5 mg tabletIndication s:bladder spasms Take 1 tablet (5 mg total) by mouth 3 (three) times a day for 10 days 30 tablet 01/01/20 24 Active sodium, potassium & mag sulfates (SUPREP BOWEL KIT) 17.5-3.13-1.6 gram recon solnIndications: Bowel Evacuation Drink first half of prep at 6:00pm the night before procedure. Drink second half of prep 4 hours prior to leaving home for procedure. 354 mL 02/16/20 24 Active Active Problems Problem Noted Date Diagnosed Date Diverticulitis 12/13/[address] ([facility]) 10/23/2023 History of diverticulitis 10/23/2023 Ureteral stricture 09/15/2023 Acute postoperative abdominal pain 05/29/2023 Hydronephrosis 05/29/2023 BMI 40.0-44.9, adult 05/01/2023 Perforation and abscess of l arge intestine concurrent with and due to diverticulitis 04/28/2023 Immunizations Immunization Administration Dates Next Due Influenza, Quad, Adjuvantate d, Intramuscular 05/21/2021 Influenza, Quadrivalent, Hig h Dose, Preservative Free, Intrr 05/31/2023,05/26/2022,05/14/2020 Influenza, Quadrivalent, Spl it, Intramuscular 05/20/2019,06/16/2017,06/11/2016,04/27 Influenza, Trivalent, High D ose, Split, Preservative Free, Intramuscular 06/13/2016,06/26/2015 Influenza, Trivalent, Preser vative Free, Intramuscular 06/06/2013,07/10/2012,07/13/2010,06/12 Influenza, Unspecified 05/30/2018 Pneumococcal Conjugate PCV 13 08/11/2016 Pneumococcal Polysaccharide PPV23 12/11/2008 Social History Tobacco Use Types Packs/Day Years Used Date Smoking Tobacco: Former Cigarettes 2 53.3 1 969 - 12/2021 Passive Smoke Exposure: Current Smokeless Tobacco: Never Tobacco Cessation:Counseling Given: Not Answered OASIS D0700: Social Isolation Answer Da te [...] materials from doctor or pharmacy Never 10/31/2023 [facility] Utilities Answer Date Recorded In the past 12 months has th e electric, gas, oil, or water [employer] threatened to shut off services in your [...] often do you attend chur ch or advent services? Never 05/31/2023 Do you belong to any clubs o r organizations such as pentecostal groups, unions, fraternal or athletic groups, or school groups? No 05/31/2023 How often do you attend meet ings of the clubs or organizations you belong to? Never 05/31/2023 Are you , , di vorced, , never , or living with a partner? 05/31/2023 AUDIT-C Answer Date Recorded Q1: How often do you have a drink containing alcohol? Never 12/12/2023 Q2: How many drinks containi ng alcohol do you have on a typical day when you are drinking? Patient does not drink Q3: How often do you have si x or more drinks on one occasion? Never 12/12/2023 Overall Financial Resource Strain (CARDIA) Answe r [...] making you feel afraid or unsafe? 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 Gender Identity Not on file Sexual Orientation Not on file Last Filed Vital Signs Vital Sign Reading Time Taken Comments Blood Pressure 149/86 01/24/2024 9:36 AM CDT Pulse 89 01/24/2024 9:36 AM CDT Temperature 36.7 C (98.1 F) 12/15/2023 7:45 AM CDT Respiratory Rate 18 12/15/2023 7:45 AM CDT Oxygen Saturation 96% 01/24/2024 9:36 AM CDT Inhaled Oxygen Concentration - - Weight 72.2 kg (159 lb 3.2 oz) 01/24/2024 9:36 A M CDT Height 156.2 cm (5' 1.5 ) 01/24/2024 9:36 AM CDT Body Mass Index 29.59 01/24/2024 9:36 AM CDT Plan of Treatment Not on file Medical Devices Implanted Type Area Gang Ripsaw Operator Device Identifier Shelf Expiration Date Model / Serial / Lot [employer] Stent Ureteral Set Double Pigtail Radiopaque Tip [employer] [id number] Hydrophilic Coated [id number] - Sn/A - [id number] Implanted:Qty: 1 on 12/12/2023 by Rishi Hendrix MD at [facility] Stent Left: Ureter [employer] 03/22/2026 [id number] / N/A / [id number] Procedures Procedure Name Priority Date/Time Associated Diagnosis Comments CT VIRTUAL COLONOSCOPY DIAGNOSTIC WO CONTRAST Schedule Routine, Read Routine (OP Routine) 12/11/2023 9:10 AM CDT 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 Extracolonic Findings: E1/E2: Clinically unimportant finding, no workup indicated. Dictated by: Donte Hoffman MD The radiology attending physician has personally reviewed this study, and had reviewed and/or edited this written report and agrees with it. Electronically signed by: Ilya Ramos M.D. Narrative 12/11/2023 12:15 PM CDT EXAMINATION: CT colonography without intravenous contrast HISTORY: Colon cancer screening. History of sigmoidectomy and Sommers's pouch with left end colostomy. CT colonography requested for evaluation through the left end colostomy. TECHNIQUE: Transaxial computed tomographic images through the abdomen and pelvis were obtained without intravenous contrast after insufflation of the colon with CO2 through a rectal catheter through the left end colostomy. Images were obtained in the supine and right lateral decubitus positions. COMPARISON: CT colonography 11/17/2023 FINDINGS: The following findings are reported according to the CT Colonography Reporting and Data System (C-RADS) from Radiology 2005; 236:3-9. Colonic preparation and distention: adequate. All segments of the colon are adequately distended on both supine and right lateral decubitus views. The Edu's pouch was evaluated on prior sigmoidoscopy and prior CT colonography. Colonic findings: Initial CT images demonstrate post surgical changes of Edu's pouch, sigmoidectomy, and left end colostomy with fat-containing parastomal hernia. Repeat CT images demonstrates placement of the rectal catheter with the balloon distended in the distal colon. There is colonic diverticulosis No polyps greater than 5 mm are detected. Extracolonic findings: This CT examination is performed without intravenous contrast and with a low dose technique optimized for evaluation of the colon. Left nephrostomy tube in place without hydronephrosis. New left lower lobe atelectasis with small left pleural effusion. Stable right middle lobe subpleural nodule. Fat containing umbilical hernia. Osteonecrosis of the left femoral head. Stable chronic compression deformity of the lower lumbar spine. Within the limits of this technique, no other significant extracolonic findings are present. Procedure Note Ilya Ramos MD - 12/11/2023 EXAMINATION: CT colonography without intravenous contrast HISTORY: Colon cancer screening. History of sigmoidectomy and Sommers's pouch with left end colostomy. CT colonography requested for evaluation through the left end colostomy. TECHNIQUE: Transaxial computed tomographic images through the abdomen and pelvis were obtained without intravenous contrast after insufflation of the colon with CO2 through a rectal catheter through the left end colostomy. Images were obtained in the supine and right lateral decubitus positions. COMPARISON: CT colonography 11/17/2023 FINDINGS: The following findings are reported according to the CT Colonography Reporting and Data System (C-RADS) from Radiology 2005; 236:3-9. Colonic preparation and distention: adequate. All segments of the colon are adequately distended on both supine and right lateral decubitus views. The Edu's pouch was evaluated on prior sigmoidoscopy and prior CT colonography. Colonic findings: Initial CT images demonstrate post surgical changes of Edu's pouch, sigmoidectomy, and left end colostomy with fat-containing parastomal hernia. Repeat CT images demonstrates placement of the rectal catheter with the balloon distended in the distal colon. There is colonic diverticulosis No polyps greater than 5 mm are detected. Extracolonic findings: This CT examination is performed without intravenous contrast and with a low dose technique optimized for evaluation of the colon. Left nephrostomy tube in place without hydronephrosis. New left lower lobe atelectasis with small left pleural effusion. Stable right middle lobe subpleural nodule. Fat containing umbilical hernia. Osteonecrosis of the left femoral head. Stable chronic compression deformity of the lower lumbar spine. Within the limits of this technique, no other significant extracolonic findings are present. IMPRESSION: Colon: C1: Normal colon or benign lesion, continue routine screening. Extracolonic Findings: E1/E2: Clinically unimportant finding, no workup indicated. Dictated by: Donte Hoffman MD The radiology attending physician has personally reviewed this study, and had reviewed and/or edited this written report and agrees with it. Electronically signed by: Ilya Ramos M.D. Angel Yan MD IMG CT PROCEDURES Final Result from Last 3 Months or Most Recently Relevant to Health Maintenance Insurance MEDICARE [facility] MEDICARE Address: [facility] [id number] [place] [id number] [facility] MEDICARE AET MEDICARE T MEDICARE Advance Directives For more information, please contact: [phone] * Full Code (Latest Code Status on File) Date Activated Date Inactivated Comments 12/12/2023 3:32 PM 12/15/2023 3:45 PM * Full Code Date Activated Date Inactivated Comments 11/16/2023 10:17 AM 11/16/2023 4:03 PM * Full Code Date Activated Date Inactivated Comments 09/07/2023 12:51 PM 09/08/2023 4:46 AM * Full Code Date Activated Date Inactivated Comments 07/13/2023 10:36 AM 07/14/2023 4:47 AM * Full Code Date Activated Date Inactivated Comments 05/29/2023 7:46 AM 05/31/2023 4:55 PM Care Teams Wilton Weaver Relationship Specialty Start Date End Date Omkar Allison MD [address] [place] [address] PCP - General Internal Medicine 05/05/23 [place] [address] [facility] [address] [place] [address] Surgeon Trauma Surgery 05/05/23 Mila Mishra MD [address] [place] [address] Consulting Physician Nephrology 05/05/23 Angel Yan MD [address] [facility] [id number] [place] [address] Surgeon Colon and Rectal Surgery 10/19/23
--- OUTSIDE RECORDS SUMMARY | 2024-10-07 13:40 | XMS_ITS | Encounter Summary ---
Author Organization [facility] Address [address] [place] [address] Care Team Providers Care Stock Clerk Name Role Phone Dario Leone MD Unavailable [phone] Mila Mishra MD Unavailable [phone] Omkar Allison MD Primary Care Provide r Angel Yan MD Unavailable Encounter Details Date Type Department Care Team (Late st Contact Info) Description 11/27/2023 Telephone [facility] Radiology [address] [place] [address] Jennifer Jarrell RN Social History Tobacco Use [...] materials from doctor or pharmacy Never 10/31/2023 [facility] Utilities Answer Date Recorded In the [...] often do you attend chur ch or amish services? Never 05/31/2023 Do you belong to any clubs o r organizations such as bahai groups, unions, fraternal or athletic groups, or school groups? No 05/31/2023 How often do you attend meet ings of the clubs or organizations you belong to? Never 05/31/2023 Are you , , di vorced, , never , or living with a partner? 05/31/2023 AUDIT-C Answer Date Recorded Q1: How often do you have a drink containing alcohol? Never 11/22/2023 Q2: How many drinks containi ng alcohol do you have on a typical day when you are drinking? Patient does not drink Q3: How often do you have si x or more drinks on one occasion? Never 11/22/2023 Overall Financial Resource Strain (CARDIA) Answe r [...] place to sleep or slept in a fdc (including now)? No 05/31/2023 Personal Safety Answer Date Recorded Have you ever been in or are you currently in a harmful physical or emotional relationship or is someone making you feel afraid or unsafe? 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 Gender Identity Not on file Sexual Orientation Not on file documented as of this encounter Plan of Treatment Not on file documented as of this encounter Visit Diagnoses Not on filedocumented in this encounter Care Teams Stock Clerk Relationship Specialty Start Date End Date Omkar Allison MD [address] [facility] [address] [place] [address] PCP - General Internal Medicine 05/05/23 [place] [address] [facility] [address] [facility] [address] [place] [address] Surgeon Trauma Surgery 05/05/23 Mila Mishra MD [address] [place] [address] [place] [address] Consulting Physician Nephrology 05/05/23 Angel Yan MD [address] [facility] [place] [id number] [place] [address] Surgeon Colon and Rectal Surgery 10/19/23 documented as of this encounter
--- OUTSIDE RECORDS SUMMARY | 2024-10-07 13:40 | XMS_ITS | CONTINUITY OF CARE DOCUMENT ---
Author Name laura sanchez Address Unknown Organization [facility] Address [address] [place] [address] Phone [phone] Care Team Providers Care Scallop Binder Name Role Phone Brianna Fitzgerald MD Unavailable YEHUDA QUINTANILLA MD Unavailable YEHUDA QUINTANLILA MD Unavailable [phone] PROBLEMS Condition Status Date Provider Notes Prediabetes active Artis Sherman RN HTN active Gil Johns MD DIZZINESS IMPROVED ON BP MEDS completed 20 05/18/24 - Gil Johns MD CAD-12/21 INF WALL ISCHEMIA O N STRESS completed - Gil Johns MD OBESITY active Lali Sung MD CAD active Gil Johns MD Pulmonary nodule active Gil Johns MD Tobacco abuse active Gil Johns MD Dyslipidemia active Gil Johns MD Ascending aorta ectasia active Gil Johns MD Preop cardiovasc. examination active Remy Fitzgerald MD RBBB active Brianna Fitzgerald MD ENCOUNTERS Date Type Provider Location Encounter Diag nosis - In-person encounter Office Visit Brianna Fitzgerald MD [facility] Preop cardiovasc. examinationRBBB - In-person encounter Office Visit Gil Johns MD [facility] HTNDIZZINESS IMPROVED ON BP MEDSCADPulmonary noduleTobacco abuseDyslipidemiaAscending aorta ectasia - In-person encounter Office Visit Gil Johns MD [facility] - In-person encounter Office Visit Lali Sung MD [facility] HTNCAD-12/21 INF WALL ISCHEMIA ON STRESSOBESITY VITAL SIGNS Date Observation Value Provider Body Mass Index (Ratio) 36.58 kg/m2 Addie Benz pulse rate 64 /min Carmenza Taylor blood pressure, diastolic 107 mm[Hg] An malorie Taylor blood pressure, systolic 172 mm[Hg] Rere Taylor oxygen saturation, oximetry 94 % Carmenza Taylor weight E&M 200 [lb_av] Carmenza Taylor blood pressure, cuff size large An malorie Taylor height E&M 62 [in_i] Carmenza Brandon Body Mass Index (Ratio) 40.60 kg/m2 Emerson Temple blood pressure, resting Yes Gil Johns MD oxygen saturation, oximetry 90 % Mara Kingston pulse rate 74 /min Mara Kingston blood pressure, diastolic 80 mm[Hg] Da sidra Kingston blood pressure, systolic 120 mm[Hg] Dac ia Leyla respiratory rate E&M 16 /min Mara V oss weight E&M 222 [lb_av] Mara Leyla height E&M 62 [in_i] Mara Leyla blood pressure, diastolic 67 mm[Hg] Da teddy Payton blood pressure, systolic 107 mm[Hg] Frank Payton pulse rate 83 /min Sammi Payton oxygen saturation, oximetry 92 % Sammi Payton respiratory rate E&M 16 /min Jose Payton weight E&M 220 [lb_av] Sammi Payton blood pressure, diastolic 71 mm[Hg] Shen espinal Fito blood pressure, systolic 109 mm[Hg] Frank barraza Payton pulse rate 88 /min Sammi Payton oxygen saturation, oximetry 97 % Sammi Payton respiratory rate E&M 16 /min Jose adams Fito weight E&M 214 [lb_av] Sammi Payton ALLERGIES No Known Drug Allergies RESULTS Date Observation Value Provider Reference Range Interpretation Location microalbumin/creatin ine ratio, urine <11.0 mg/g creat [facility] 0.0-30.0 microalbumin, random, urine <3.0 ug/mL [facility] Not Estab. creatinine, random, urine 27.3 mg/dL [facility] Not Estab. hemoglobin A1C, blood, as % of total hemoglobin 5.9 % [facility] 4.8-5.6 High LDL cholesterol, serum 80 mg/dL Markus Temple platelet count 230 10*3/uL Tammy Chambers red blood cell distribution width 13.2 % Tammy Chambers mean corpuscular hemoglobin concentration, RBC 34.2 g/dL Tammy Chambers mean corpuscular hemoglobin, RBC 30.2 pg Tammy Chambers mean corpuscular volume, RBC 88.1 fL Tammy Chambers hematocrit, blood 43.8 % Tammy Chambers hemoglobin, blood 15.0 g/dL Tammy Chambers erythrocyte (RBC) count 4.97 10*6/mm3 Tammy Chambers monocytes as percent of blood leukocytes 7.9 % Tammy Chambers lymphocytes as percent of blood leukocytes 34.2 % Tammy Chambers leukocyte count, blood 6.8 10*3/mm3 Tammy Chambers very low density lipoproteins 30 mg/dL Tammy Chambers triglyceride, serum, fasting 149 mg/dL Tammy Chambers HDL cholesterol, serum 48 mg/dL [facility] LDL cholesterol, serum 98 mg/dL [facility] cholesterol, serum 176 mg/dL [facility] thyroid stimulating hormone, serum 1.890 u[IU]/mL [facility] albumin/globulin ratio, serum 1.8 [facility] protein, total, serum 6.7 g/dL [facility] albumin, serum 4.3 g/dL [facility] bilirubin, serum, total 0.6 mg/dL [facility] alkaline phosphatase, serum 99 1/L [facility] alanine aminotransferase (SGPT), serum 23 1/L [facility] aspartate aminotransferase (SGOT), serum 19 1/L [facility] calcium, serum 9.8 mg/dL [facility] blood glucose, fasting 97 mg/dL [facility] creatinine, serum 0.86 mg/dL [facility] urea nitrogen, blood 13 mg/dL [facility] carbon dioxide, serum, total 25 mmol/L [facility] chloride, serum 102 mmol/L [facility] potassium, serum 4.2 mmol/L [facility] sodium, serum 139 mmol/L [facility] HISTORY OF MEDICATION USE Medication Status Instructions Dates Provider Indications Com ments lisinopril-hydro chlorothiazide 10-12.5 mg tablet active Take 1 tablet by mouth once a day 6 Brianna Fitzgerald MD lisinopril-hydro chlorothiazide 10-12.5 mg tablet completed - 6 Brianna Fitzgerald MD Lipitor 10 mg tablet completed 1 tablet once a day - 6 Carmenza Taylor naltrexone 50 mg tablet completed 1/2 tab by mouth daily, if not effective after 1 week may increase to 1/2 tab twice daily - 6 Carmenza Taylor bupropion HCl 100 mg tablet completed 1 tab by mouth daily, if not effective after 1 week may increase to 1 tab twice daily 0 - 6 Carmenza Taylor FLONASE 50 MCG/ACT NASAL SUSPENSION completed 1 spray into both nostrils once a day as needed 0 - 6 Carmenza Taylor ALLERGY 10 MG ORAL TABLET completed Take 1 tablet once a day 0 - 6 Carmenza Taylor trazodone 50 mg tablet completed Take 1 every night 0 - 6 Carmenza Taylor omeprazole 40 mg capsule,delayed release(DR/EC) active Take 1 tablet once a day 0 Mara Mayer alendronate 70 mg tablet completed Take 1 tablet once a week 0 - 6 Carmenza Taylor PROTONIX 40 MG ORAL TABLET DELAYED RELEASE completed TAKE DAILY - 3 Mara Mayer XANAX 0.25 MG ORAL TABLET completed ONE TAB. THREE TIMES DAILY PRN 4 - 3 Mara Mayer ASPIRIN 81 MG ORAL TABLET completed 1 tablet once a day - 6 Carmenza Taylor lisinopril-hydro chlorothiazide 10-12.5 mg tablet completed Take once a day - 6 Carmenza Taylor SOCIAL HISTORY Date Observation Value Provider social history E&M Lives with fa sami/friends E thnicity: Smoking History: Jing farley is a former smoker. Brianna Fitzgerald MD social history reviewed E&M revi ewed - no changes required Brianna Fitzgerald MD smoking, year quit 2021 Carmenza rowell cigarette use yes Carmenza Taylor smoking status Former smoker Carmenza malik number of years as a smoker 10+ Markus Temple cigarette use yes Markus geller social history reviewed E&M revi ewed - no changes required Gil Johns MD social history E&M Lives with fa sami/friends E thnicity: Smoking History: P martine currently smokes every day. P martine has been counseled to quit. Gil Johns MD smoking/tobacco cess ation, patient education and counseling yes Gil Johns MD physical exercise, frequency, days per week no [facility] alcohol use, average drinks per day social basis only Mara Kingston caffeine use, averag e drinks per day yes [facility] smoking status Current every day smoker D acia Kingston smoking/tobacco cess ation, patient education and counseling yes Gil Johns MD social history reviewed E&M reviewed Gil Johns MD social history E&M L parag with family/friends E thnicity: Lali Sung MD social history reviewed E&M reviewed Lali Sung MD physical exercise, frequency, days per week [facility] caffeine use, averag e drinks per day yes [facility] alcohol use, average drinks per day social basis only [facility] number of years as a smoker 10 years or m ore [facility] smoking status Smoker [facility] FUNCTIONAL STATUS Date Observation Value Provider HRA, CV Assess/Plan, Angina (inactive) Management Plan continue current therapy Brianna Fitzgerald MD HRA, CV Assess/Plan, Angina (inactive) Management Plan continue current therapy Gil Johns MD MENTAL STATUS Date Observation Value Provider assessment of judgme nt and insight E&M Alert and oriented to time, place and person. Mood and affect are normal.Alert and oriented to time, place and person. Mood and affect are normal. Gil Johns MD FAMILY HISTORY Family Member Condition Father Family History of Co ronary Artery Disease: Mother Family History of Hy pertension: INSURANCE PROVIDERS Payer name Policy type / Coverage type [place] [employer] party ID [employer] MEDICARE [place] PPO Medicare [id number] ADVANCE DIRECTIVES Name Date DISCUSSED - NO DECISION MADE TREATMENT PLAN Date Name Performer [id number],C,p rior cath in 2009 was without sig CAD, repeat r ecent stress in 2019 nl LV function and diaphgarm attenuation, check echo for LV function for pre-op Brianna Fitzgerald MD [id number],C,E KG shows RBBB, will need echo for pre-op eval Brianna Fitzgerald MD [id number],C,LDCT being fo llowed by PCP Brianna Fitzgerald MD [id number],B,stopped smoki ng 16 months ago Brianna Fitzgerald MD [id number],C,s ays BP is 120/80 at home, here it is 172/107, needs to resume BP meds has not been taking T he following medications were removed from the medication list: Lisinopril-hydrochlorothiazide 10-12.5 Mg Tablet (Lisinopril-hydrochlorothiazide) ..... Take once a day Brianna Fitzgerald MD [id number],C,currently martinez s not take any statin Brianna Fitzgerald MD [id number],C,will check ec ho for pre-op eval Brianna Fitzgerald MD [id number],S,r emains prediabetic per her bloodwork per her report Brianna Fitzgerald MD Cardiology:prior cat h in 2009 was without sig CAD, repeat r ecent stress in 2019 nl LV function and diaphgarm attenuation, check echo for LV function for pre-op Brianna Fitzgerald MD Cardiology:EKG shows RBBB, will need echo for pre-op eval Brianna Fitzgerald MD Cardiology:LDCT being followed b y PCP Brianna Fitzgerald MD Cardiology:stopped smoking 16 mo nths ago Brianna Fitzgerald MD Cardiology:says BP i s 120/80 at home, here it is 172/107, needs to resume BP meds has not been taking T he following medications were removed from the medication list: Lisinopril-hydrochlorothiazide 10-12.5 Mg Tablet (Lisinopril-hydrochlorothiazide) ..... Take once a day Brianna Fitzgerald MD Cardiology:currently does not ta ke any statin Brianna Fitzgerald MD Cardiology:will check echo for p re-op eval Brianna Fitzgerald MD Cardiology:remains p rediabetic per her bloodwork per her report Brianna Fitzgerald MD Cardiology New Patie nt:Patient would like to try Buproprion/Naltrexone for weight loss. [facility] Cardiology New Patie nt:Orders: C omplete Echo (CPT-08546) [facility] Cardiology New Patie nt:LDL: 80 (09/04/2018) Her updated medication list for this problem includes: Lipitor 10 Mg Oral Tablet (Atorvastatin calcium) ..... One tab. daily Orders: HEMOGLOBIN A1c (496) U RINALYSIS, RANDOM, MICROALB/CREATININE (6517) [facility] Cardiology New Patie nt:BP today: 120/80 P rior BP: 107/67 (02/22/2010) Her updated medication list for this problem includes: Lisinopril-hydrochlorothiazide 10-12.5 Mg Oral Tablet (Lisinopril-hydrochlorothiazide) ..... Take daily Orders: H EMOGLOBIN A1c (496) U RINALYSIS, RANDOM, MICROALB/CREATININE (6517) C omplete Echo (CPT-18190) [facility] Cardiology New Patie nt:Her updated medication list for this problem includes: Lisinopril-hydrochlorothiazide 10-12.5 Mg Oral Tablet (Lisinopril-hydrochlorothiazide) ..... Take daily Aspirin 81 Mg Oral Tablet (Aspirin) ..... One tab. daily Orders: E KG (CPT-26863) C T, Coronary Calcium Score (CPT-59279) C omplete Echo (CPT-89163) S tress Regadenoson (CPT-32492) H EMOGLOBIN A1c (496) U RINALYSIS, RANDOM, MICROALB/CREATININE (6517) Markus Maverick f/u: H er updated medication list for this problem includes: Lisinopril-hydrochlorothiazide 10-12.5 Mg Tabs (Lisinopril-hydrochlorothiazide) ..... Take daily Aspirin 81 Mg Tabs (Aspirin) ..... One tab. daily Gil Johns MD Date Name Complete Echo Stress Regadenoson Complete Echo CT, Coronary Calcium Score URINALYSIS, RANDOM, MICROALB/CREATININE HEMOGLOBIN A1c HISTORY OF PROCEDURES Procedure Date Procedure Name Provider Procedure Notes S tatus EKG Brianna Fitzgerald MD compl eted Regadenoson, 4 units Gil Johns MD completed Cardiolite, 2 units Gil Johns MD c ompleted SPECT Images Lali Sung MD complet ed Stress EKG Lali Sung MD completed EKG Gil Johns MD completed EKG Gil Johns MD completed
--- OUTSIDE RECORDS SUMMARY | 2024-10-07 13:40 | XMS_ITS | Clinical Summary ---
Author Organization [facility] Address [address] [place] [address] Care Team Providers Care Road Service Locksmith Name Role Phone Dario Leone MD Unavailable [phone] Mila Mishra MD Unavailable [phone] Omkar Allison MD Primary Care Provide r Angel Yan MD Unavailable [phone] Allergies No known active allergies Medications omeprazole [...] Diagnosed Date Diverticulitis 12/13/[address] ([facility]) 10/23/2023 History of diverticulitis 10/23/2023 Ureteral stricture [...] PCV 13 08/11/2016 Pneumococcal Polysaccharide PPV23 12/11/2008 Surgical History Surgery Date Site/Laterality Comments EXPLORATORY LAPAROTOMY W/ BOWEL RESECTION 04/28/2023 N/A colostomy PERCUTANEOUS NEPHROSTOMY PCN LEFT 05/30/2023 Left NEPHROSTOMY CATHETER CHANGE LEFT 07/13/2023 Left NEPHROSTOMY CATHETER CHANGE LEFT 09/07/2023 Left CYSTOSCOPY 05/14/2023 - 06/13/2023 pyelogram DENTAL SURGERY upper teeth removed 1975, lower teeth removed VAGINAL DELIVERY 1970 and 1977 COLONOSCOPY last one around 2016 COLONOSCOPY 04/27/2023 POLYPECTOMY Medical History Medical History Date Comments Arthritis COPD (chronic obstructive pulmonary disease) (HC C) Osteoporosis Cataracts, bilateral GERD (gastroesophageal reflux disease) Inflammatory bowel disease Colostomy in place (CMS/HCC) (HCC) Diverticulosis Chronic kidney disease Colon polyp Family History Medical History Relation Name Comments Colon polyps Father No Known Problems Mother Anesthesia problems Neg Hx Relation Name Status Comments Father Mother Social History Tobacco Use Types Packs/Day Years [...] materials from doctor or pharmacy Never 10/31/2023 [facility] Utilities Answer Date Recorded In the past 12 months has e [employer], gas, oil, or water [employer] threatened to shut off services in your [...] often do you attend chur ch or mandaen services? Never 05/31/2023 Do you belong to any clubs o r organizations such as sabianist groups, unions, fraternal or athletic groups, or [...] place to sleep or slept in a penitentiary (including now)? No 05/31/2023 Personal Safety Answer Date Recorded Have you ever been in or are you currently in a harmful physical or emotional relationship or is someone making you feel afraid or unsafe? Denies 12/12/2023 Comments No Sex and Gender Information Value Date Recorded Sex Assigned at Not on file Legal Sex Female 10:37 AM SHALLOT PACKER Gender Identity Not on file Sexual Orientation Not on file Obstetrics History Last Filed Vital Signs Vital Sign Reading [...] 01/24/2024 9:36 AM CDT Plan of Treatment Health Maintenance Due Date Last Done Comments Breast Cancer Screening-Mammogram 1950 Depression Screening 1950 Hepatitis C Screening 1950 DTaP/Tdap/Td Vaccine (1 - Tdap) 1963 Hepatitis B Screening 1970 Zoster Vaccine (1 of 2) 1971 Lung Cancer Screening 2002 Pneumococcal vaccine 65+ (3 of 3 - PPSV23, PCV20 or PCV21) 10/06/2016 08/11/2016, 12/11/2008 Well Visit 65+ 2017 Covid-19 Vaccine (5 - 2023-2 5 season) 2024 09/01/2022, 05/21/2021, 10/30/2020, Additional history exists Influenza Vaccine (#1) 2024 , 05/26/2022, 05/21/2021, Additional history exists Osteoporosis Screening-Bone Density Scan 10/17/2024 10/17/2022 Fall Risk Assessment 12/14/2024 12/15/2023 Colon Cancer Screening-Colonoscopy 12/10/2033 12/11/2023, 11/16/2023, 11/16/2023 Medical Devices Implanted Type Area Box Machine Operator Device Identifier Shelf Expiration Date Model / Serial / Lot [employer] Stent Ureteral Set Double Pigtail Radiopaque Tip [employer] [id number] Hydrophilic Coated [id number] - Sn/A - [id number] Implanted:Qty: 1 on 12/12/2023 by Rishi Hendrix MD at [facility] Stent Left: Ureter [employer] 03/22/2026 [id number] / N/A / [id number] Procedures Procedure Name Priority Date/Time Associated Diagnosis [...] Most Recently Relevant to Health Maintenance [place] [place] [address] MEDICARE [employer] MEDICARE T MEDICARE T MEDICARE Advance Directives For more information, please contact: [phone] * Full Code (Latest Code Status on [...] 7:46 AM 05/31/2023 4:[address] Service Locksmith Relationship Specialty Start Date End Date Omkar Allison MD [address] [place] [address] PCP - General Internal Medicine 05/05/23 [place] [address] [place] [address] Surgeon Trauma Surgery 05/05/23 Mila Mishra MD [address] [place] [address] Consulting Physician Nephrology 05/05/23 Angel Yan MD [phone] [place] [address] Surgeon Colon and Rectal Surgery 10/19/23
--- OUTSIDE RECORDS SUMMARY | 2024-10-07 13:40 | XMS_ITS | Encounter Summary ---
Author Organization [facility] Address [address] [place] [address] Care Team Providers Care Clinical Instructor Name Role Phone Dario Leone MD Unavailable [phone] Mila Mishra MD Unavailable [phone] Omkar Allison MD Primary Care Provide r Angel Yan MD Unavailable [phone] Encounter Details Date Type Department Care Team (Late st Contact Info) Description 11/13/2023 Telephone [facility] Radiology [address] [place] [address] Jennifer Jarrell RN Social History Tobacco Use [...] doctor or pharmacy Never 10/31/2023 [facility] Utilities Answer Date Recorded In the [...] any clubs o r organizations such as lutheran groups, unions, fraternal or athletic groups, or [...] place to sleep or slept in a fpc (including now)? No 05/31/2023 Personal Safety Answer Date Recorded Have you ever been in or are you currently in a harmful physical or emotional relationship or is someone making you feel afraid or unsafe? 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 Gender Identity Not on file Sexual Orientation Not on file documented as of this encounter Functional Status documented as of this encounter Plan of Treatment Not on file documented as of this encounter Visit Diagnoses Not on filedocumented in this encounter Care Teams Clinical Instructor Relationship Specialty Start Date End Date Omkar Allison MD [address] [facility] [address] [place] [address] PCP - General Internal Medicine 05/05/23 [place] [address] [facility] [address] [place] [address] Surgeon Trauma Surgery 05/05/23 Mila Mishra MD [address] [place] [address] [place] [address] Consulting Physician Nephrology 05/05/23 Angel Yan MD [address] [facility] [phone] [place] [address] Surgeon Colon and Rectal Surgery 10/19/23 documented as of this encounter
--- OUTSIDE RECORDS SUMMARY | 2024-10-07 13:40 | XMS_ITS | Clinical Summary ---
Author Organization [facility] Sharon malik Raine Address [address] [place] [address] Care Team Providers Care Train System Operator Name Role Phone Tariq Allison MD Primary Care Provider Allergies No known active allergies Medications zolpidem (AMBIEN) 10 mg tablet Take 10 mg by mouth nightly as needed for Insomnia. 3 Active hydroxychloroqu ine (PLAQUENIL) 200 mg tablet Take 400 mg by mouth. 4 Active omeprazole (PriLOSEC) 40 mg Capsule, Delayed Release(E.C.) Take 40 mg by mouth daily. Active DULoxetine (CYMBALTA) 30 mg Capsule, Delayed Release(E.C.) PLEASE SEE ATTACHED FOR DETAILED DIRECTIONS 4 Active leflunomide (ARAVA) 20 mg Tablet Take 1 Tablet by mouth daily. 4 Active Active Problems No known active problems Encounters Date Type Department Care Team Description 10/01/2024 External Device Data STL ABSTRACTION Provider, Abstract 09/03/2024 External Device Data STL ABSTRACTION Provider, Abstract 07/08/2024 11:00 AM INTERVENTIONAL PHYSICIAN Office Visit [facility] Oncology and Hematology - [place] [address] [place] [address] Judson Higginbotham MD Chronic anemia (Primary Dx) from Last 3 Months Family History Medical History Relation Name Comments No Known Problems Brother No Known Problems Daughter Heart Disease Father No Known Problems Mother Tongue Cancer Sister 1 No Known Problems Sister 2 No Known Problems Son Relation Name Status Comments Brother Alive Daughter Alive Father Mother Sister 1 Sister 2 Alive Son Alive Social History Tobacco Use Types Packs/Day Years Used Date Smoking Tobacco: Former Cigarettes 2 50 Q uit: 10/12/2020 Smokeless Tobacco: Never Tobacco Cessation:Counseling Given: Not Answered Alcohol Use Standard Drinks/Week Comments Yes 0 (1 standard drink = 0.6 oz pur e alcohol) socially Comments Unknown Sex and Gender Information Value Date Recorded Sex Assigned at Not on file Legal Sex Female 7:58 AM CDT Gender Identity Not on file Sexual Orientation Not on file Last Filed Vital Signs Vital Sign Reading Time Taken Comments Blood Pressure 143/90 07/08/2024 11:10 AM INTERVENTIONAL PHYSICIAN Pulse 79 07/08/2024 11:10 AM INTERVENTIONAL PHYSICIAN Temperature 36.6 C (97.8 F) 07/08/2024 11:10 AM INTERVENTIONAL PHYSICIAN Respiratory Rate 16 07/08/2024 11:10 AM INTERVENTIONAL PHYSICIAN Oxygen Saturation 93% 07/08/2024 11:10 AM INTERVENTIONAL PHYSICIAN Inhaled Oxygen Concentration - - Weight 76.7 kg (169 lb) 07/08/2024 11:10 AM INTERVENTIONAL PHYSICIAN Height 154.9 cm (5' 1 ) 04/18/2024 10:11 AM CDT Body Mass Index 31.93 04/18/2024 10:11 AM CDT Plan of Treatment Upcoming Encounters Date Type Department Care Team (Late st Contact Info) Description 11/08/2024 9:15 AM CDT Office Visit [facility] - [place] [address] [place] [address] [facility] [address] [place] [address] Judson Higginbotham MD [address] [facility] [address] [place] [address] Health Maintenance Due Date Last Done Comments DTAP/TDAP/TD VACCINES (1 - Tdap) 1971 ZOSTER VACCINE (1 of 2) 1971 BREAST CANCER SCREENING 1992 FIT-DNA Q 3 years 1997 FIT/FOBT Q 1 year 1997 RSV VACCINE (60+ or ) (1 - Risk 60-74 years 1-dose series) 2012 PNEUMOCOCCAL VACCINE 65+ YEA RS (3 of 3 - PPSV23, PCV20 or PCV21) 10/06/2016 08/11/2016, 12/11/2008 OSTEOPOROSIS SCREENING 2017 INFLUENZA VACCINE (#1) 2024 , 05/26/2022, 05/21/2021, Additional history exists Flex Sig/CT Colonography Q 5 years 12/10/20282023 COLORECTAL SCREENING 11/15/2033 11/16/2023, 11/16/19 Colorectal Cancer Screening 11/15/2033 Insurance [employer] PPO MCR Care Teams Train System Operator Relationship Specialty Start Date End Date Tariq Allison MD PCP - General Internal Medicine 04/03/24
[2024-10-07 13:52] LABS: Hemoglobin A1C 5.5 % (<5.7)
[2024-10-07 14:10] LABS: Folic Acid 8.1 ng/mL (2.76->20)
[2024-10-07 15:11] LABS: Erythrocyte Sedimentation Rate 14 mm/hr (0-20)
== END 2024-10-07 11:38 | disposition home or self-care (01) ==
LOC: ANHLAB 11:51
PROVIDERS: PCP Internal Medicine; Referring Provider Internal Medicine; Visit Provider Internal Medicine Nephrology
DX: R73.03 Prediabetes (principal); E78.5 Hyperlipidemia, unspecified; M06.09 Rheumatoid arthritis without rheumatoid factor, multiple sites; N18.9 Chronic kidney disease, unspecified; Z79.899 Other long term (current) drug therapy
CPT/HCPCS: 36415; 80053; 80061; 81001; 82607; 82746; 83036; 84100; 84439; 84443; 85025; 85652; 86140; 86334

== ENCOUNTER 2025-03-24 09:18 | Outpatient (CLI) | payer MEDICARE, SELFPAY ==
--- OUTSIDE RECORDS SUMMARY | 2025-03-24 09:29 | XMS_ITS | Encounter Summary ---
Author Organization [facility] Healthcare Address [address] [place] [address] Care Team Providers Care Mud Boss Name Role Phone Dario Leone MD Unavailable [phone] Mila Mishra MD Unavailable [phone] Omkar Allison MD Primary Care Provide r Angel Yan MD Unavailable [phone] Encounter Details Date Type Department Care Team (Late st Contact Info) Description 11/27/2023 Telephone [facility] Radiology 1 [place], [place] [id number] Jennifer Jarrell RN Social History Tobacco Use [...] materials from doctor or pharmacy Never 10/31/2023 [facility] Utilities Answer Date Recorded In the past 12 months has th e electric, gas, oil, or water [employer] threatened to shut off services in your home? No 05/31/2023 Social Connection and Isolation Panel Answer Date Recorded In a typical week, how many times do you talk on the phone with family, friends, or neighbors? More than three times a week 05/31/2023 How often do you get togethe r with friends or relatives? More than three times a week 05/31/2023 How often do you attend chur ch or latter day services? Never 05/31/2023 Do you belong to any clubs o r organizations such as yazdanism groups, unions, fraternal or athletic groups, or [...] place to sleep or slept in a retirement (including now)? No 05/31/2023 Personal Safety Answer Date Recorded Have you ever been in or are you currently in a harmful physical or emotional relationship or is someone making you feel afraid or unsafe? 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 Gender Identity Not on file Sexual Orientation Not on file documented as of this encounter Plan of Treatment Not on file documented as of this encounter Visit Diagnoses Not on filedocumented in this encounter Care Teams Mud Boss Relationship Specialty Start Date End Date Omkar Allison MD [address] [facility] [address] [place] [id number] PCP - General Internal Medicine 05/05/23 [place] [address] [address] [facility] 1 [facility] [address] [address] Surgeon Trauma Surgery 05/05/23 [place] [address] [address] [facility] 1 [facility] [address] [address] Consulting Physician Nephrology 05/05/23 Angel Yan MD [address] [facility] [phone] [place], [place] [id number] Surgeon Colon and Rectal Surgery 10/19/23 documented as of this encounter
--- OUTSIDE RECORDS SUMMARY | 2025-03-24 09:29 | XMS_ITS | Encounter Summary ---
Author Organization [facility] Healthcare Address [address] [place] [address] Care Team Providers Care Toxicologist Name Role Phone Dario Leone MD Unavailable [phone] Mila Mishra MD Unavailable [phone] Omkar Allison MD Primary Care Provide r Angel Yan MD Unavailable [phone] Encounter Details Date Type Department Care Team (Late st Contact Info) Description 11/13/2023 Telephone [facility] Radiology 1 [place], [place] [id number] Jennifer Jarrell RN Social History Tobacco Use [...] materials from doctor or pharmacy Never 10/31/2023 [facility] Utilities Answer Date Recorded In the past 12 months has th e electric, gas, oil, or water [employer] threatened to shut off services in your [...] often do you attend chur ch or episcopal services? Never 05/31/2023 Do you belong to any clubs o r organizations such as baptist groups, unions, fraternal or athletic groups, or [...] place to sleep or slept in a detention (including now)? No 05/31/2023 Personal Safety Answer Date Recorded Have you ever been in or are you currently in a harmful physical or emotional relationship or is someone making you feel afraid or unsafe? 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 Gender Identity Not on file Sexual Orientation Not on file documented as of this encounter Functional Status documented as of this encounter Plan of Treatment Not on file documented as of this encounter Visit Diagnoses Not on filedocumented in this encounter Care Teams Toxicologist Relationship Specialty Start Date End Date Omkar Allison MD 2044 [facility] [address] [place] [address] PCP - General Internal Medicine 05/05/23 [place] [address] [address] 1 [facility] [address], [place] [address] Surgeon Trauma Surgery 05/05/23 [place] [address] [address] 1 [facility] [address], [place] [address] Consulting Physician Nephrology 05/05/23 Angel Yan MD [address] [facility] [phone] [place] [address] Surgeon Colon and Rectal Surgery 10/19/23 documented as of this encounter
--- OUTSIDE RECORDS SUMMARY | 2025-03-24 09:29 | XMS_ITS | Encounter Summary ---
Author Organization [facility] Address [address] [place] [address] Phone Care Team Providers Care Chief Administrative Officer Name Role Phone Dario Leone MD Unavailable [phone] Mila Mishra MD Unavailable [phone] Omkar Allison MD Primary Care Provide r Angel Yan MD Unavailable [phone] Encounter Details Date Type Department Care Team (Late st Contact Info) Description 05/17/2023 Orders Only [facility] Surgery [address] [facility] [address] [place] [address] [place] [id number] [place] [address] [address] [place] [address] Social History Tobacco Use Types Packs/Day Years [...] or pharmacy Rarely 05/08/2023 Social Connection and Isolation Panel Answer Date Recorded In a typical week, how many times do you talk on the phone with family, friends, or neighbors? More than three times a week 05/01/2023 How often do you get togethe r with friends or relatives? More than three times a week 05/01/2023 How often do you attend chur ch or hindu services? 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 Gender Identity Not on file Sexual Orientation Not on file documented as of this encounter Plan of Treatment Not on file documented as of this encounter Visit Diagnoses Not on filedocumented in this encounter Care Teams Chief Administrative Officer Relationship Specialty Start Date End Date Omkar Allison MD 2043 [facility] [address] [place] [address] PCP - General Internal Medicine 05/05/23 [place] [address] [address] [place] [address] Surgeon Trauma Surgery 05/05/23 [place] [address] [address] [place] [address] Consulting Physician Nephrology 05/05/23 Angel Yan MD [address] [facility] [phone] [place] [address] Surgeon Colon and Rectal Surgery 10/19/23 documented as of this encounter
--- OUTSIDE RECORDS SUMMARY | 2025-03-24 09:29 | XMS_ITS | Encounter Summary ---
Author Organization [facility] Healthcare Address [address] [place] [address] Care Team Providers Care Restaurant Manager Name Role Phone Dario Leone MD Unavailable [phone] Mila Mishra MD Unavailable [phone] Omkar Allison MD Primary Care Provide r Angel Yan MD Unavailable [phone] Encounter Details Date Type Department Care Team (Late st Contact Info) Description 11/15/[address] [facility] Radiology 1 [place], [place] [phone] Jennifer Jarrell RN Social History Tobacco Use [...] materials from doctor or pharmacy Never 10/31/2023 [facility] Utilities Answer Date Recorded In the past 12 months has th e electric, gas, oil, or water [employer] threatened to shut off services in your [...] often do you attend chur ch or taoist services? Never 05/31/2023 Do you belong to any clubs o r organizations such as orthodoxy groups, unions, fraternal or athletic groups, or [...] place to sleep or slept in a care home (including now)? No 05/31/2023 Personal Safety Answer Date Recorded Have you ever been in or are you currently in a harmful physical or emotional relationship or is someone making you feel afraid or unsafe? 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 Gender Identity Not on file Sexual Orientation Not on file documented as of this encounter Functional Status documented as of this encounter Plan of Treatment Not on file documented as of this encounter Visit Diagnoses Not on filedocumented in this encounter Care Teams Restaurant Manager Relationship Specialty Start Date End Date Omkar Allison MD 2044 [facility] [address] [place] [address] PCP - General Internal Medicine 05/05/23 [place] [address] [address] [facility] [address], [place] [address] Surgeon Trauma Surgery 05/05/23 [place] [address] [address] 1 [facility] [address], [place] [address] Consulting Physician Nephrology 05/05/23 Angel Yan MD [address] [facility] [phone] [place] [address] Surgeon Colon and Rectal Surgery 10/19/23 documented as of this encounter
--- OUTSIDE RECORDS SUMMARY | 2025-03-24 09:29 | XMS_ITS | Encounter Summary ---
Author Organization [facility] Healthcare Address [address] [place] [address] Care Team Providers Care Hand Fretted Instrument Maker Name Role Phone Dario Leone MD Unavailable [phone] Mila Mishra MD Unavailable [phone] Omkar Allison MD Primary Care Provide r Angel Yan MD Unavailable [phone] Encounter Details Date Type Department Care Team (Late st Contact Info) Description 11/08/2023 Telephone [facility] Radiology 1 [place], [place] [id number] Jennifer Jarrell RN Social History Tobacco Use [...] materials from doctor or pharmacy Never 10/31/2023 [facility] Utilities Answer Date Recorded In the past 12 months has th e electric, gas, oil, or water [employer] threatened to shut off services in your [...] often do you attend chur ch or lutheran services? Never 05/31/2023 Do you belong to any clubs o r organizations such as sabianism groups, unions, fraternal or athletic groups, or [...] to sleep or slept in a senior living (including now)? No 05/31/2023 Personal Safety Answer Date Recorded Have you ever been in or are you currently in a harmful physical or emotional relationship or is someone making you feel afraid or unsafe? 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 Gender Identity Not on file Sexual Orientation Not on file documented as of this encounter Functional Status documented as of this encounter Plan of Treatment Not on file documented as of this encounter Visit Diagnoses Not on filedocumented in this encounter Care Teams Hand Fretted Instrument Maker Relationship Specialty Start Date End Date Omkar Allison MD 2044 [facility] [address] [place] [address] PCP - General Internal Medicine 05/05/23 [place] [address] [address] [facility] [address], [place] [address] Surgeon Trauma Surgery 05/05/23 [place] [address] [address] 1 [facility] [address], [place] [address] Consulting Physician Nephrology 05/05/23 Angel Yan MD [address] [facility] [phone] [place] [address] Surgeon Colon and Rectal Surgery 10/19/23 documented as of this encounter
--- OUTSIDE RECORDS SUMMARY | 2025-03-24 09:29 | XMS_ITS | Clinical Summary ---
Author Organization [facility] Sharon malik Raine Address [address] [place] [address] Care Team Providers Care Associate Store Director Name Role Phone Tariq Allison MD Primary [...] 1 Tablet by mouth daily. 4 Active lisinopriL (PRINIVIL) 10 mg tablet Take 10 mg by mouth daily. Active Active Problems No known active problems Encounters Date Type Department Care Team Description 03/13/2025 10:15 AM CDT Office Visit [facility] Oncology and Hematology - [address] [place] [address] Judson Higginbotham MD Chronic anemia (Primary Dx) 03/05/2025 Orders Only [facility] Oncology and Hematology - [address] [place] [id number] Judson Higginbotham MD 03/04/2025 Orders Only [facility] Oncology and Hematology - [address] [place] [address] Judson Higginbotham MD 02/26/2025 External Device Data STL ABSTRACTION Provider, Abstract 02/26/2025 External Device Data STL ABSTRACTION Provider, Abstract 02/26/2025 External Device Data STL ABSTRACTION Provider, Abstract 02/25/2025 External Device Data STL ABSTRACTION Provider, Abstract 01/29/2025 External Device Data STL ABSTRACTION Provider, Abstract 01/28/2025 External Device Data STL ABSTRACTION Provider, Abstract 12/31/2024 External Device Data STL ABSTRACTION Provider, Abstract from Last 3 Months Family History Medical [...] Sign Reading Time Taken Comments Blood Pressure 137/85 03/13/2025 10:11 AM CDT Pulse 79 03/13/2025 10:11 AM CDT Temperature 36.3 C (97.4 F) 03/13/2025 10:11 AM CDT Respiratory Rate 15 03/13/2025 10:11 AM CDT Oxygen Saturation 92% 03/13/2025 10:11 AM CDT Inhaled Oxygen Concentration - - Weight 81.9 kg (180 lb 9.6 oz) 03/13/2025 10:11 AM CDT Height 154.9 cm (5' 1) 04/18/2024 10:11 AM CDT Body Mass Index 34.12 04/18/2024 10:11 AM CDT Plan of Treatment Upcoming Encounters Date Type Department Care Team (Late st Contact Info) Description 07/18/2025 12:00 PM DIRECTOR EXECUTIVE COMMUNICATIONS Office Visit [facility] Oncology and Hematology - [address] [facility] [address] [place] [address] Judson Higginbotham MD [address] [facility] [address] [place] [address] Health Maintenance Due Date Last Done Comments DTAP/TDAP/TD VACCINES (1 - Tdap) 1971 ZOSTER VACCINE (1 of 2) 1971 BREAST CANCER SCREENING 1992 FIT-DNA Q 3 years 1997 FIT/FOBT Q 1 year 1997 Lung Cancer Screening 2002 RSV VACCINE (60+ or ) (1 - Risk 60-74 years 1-dose series) 2012 OSTEOPOROSIS SCREENING 2017 COVID-19 Vaccine (6 - Pfizer risk 2023- season) 2024 04/20/2024, 09/01/2022, 05/21/2021, Additional history exists INFLUENZA VACCINE (#1) 2025 , 05/31/2023, 05/26/2022, Additional history exists Flex Sig/CT Colonography Q 5 years 12/10/20282023 COLORECTAL SCREENING 11/15/2033 11/16/2023, 11/16/19 24 Colorectal Cancer Screening 11/15/2033 PNEUMOCOCCAL VACCINE 50+ YEARS Completed 0 04/20/2024, 08/11/2016, 12/11/2008 Procedures Procedure Name Priority Date/Time Associated Diagnosis Comments CBC WITH DIFFERENTIAL Routine 02/28/2025 3:16 PM CDT IRON PANEL Routine 02/28/2025 7:53 AM CDT from Last 3 Months Results * CBC WITH DIFFERENTIAL (02/28/2025 3:16 PM CDT) Blood us Judson Higginbotham MD HEMATOLOGY ORDERABLES Final Res ult * IRON PANEL (02/28/2025 7:53 AM CDT) Blood us Judson Higginbotham MD CHEMISTRY ORDERABLES Final Resu lt from Last 3 Months Insurance [employer] PPO MCR Care Teams Associate Store Director Relationship Specialty Start Date End Date Tariq Allison MD PCP - General Internal Medicine 04/03/24
--- OUTSIDE RECORDS SUMMARY | 2025-03-24 09:29 | XMS_ITS | Clinical Summary ---
Author Organization [facility] Address [address] [place] [address] Care Team Providers Care Survey Engineer Name Role Phone Dario Leone MD Unavailable [phone] Mila Mishra MD Unavailable [phone] Omkar Allison MD Primary Care Provide r Angel Yan MD Unavailable [phone] Allergies No known active allergies Medications omeprazole [...] (twelve) hours 60 capsule 11 12/15/19 24 Active ibuprofen (ADVIL,MOTRIN) 600 mg tabletIndication s:Pain [...] Diagnosed Date Diverticulitis 12/13/[address] 10/23/2023 History of diverticulitis 10/23/2023 Ureteral stricture [...] Comments Arthritis COPD (chronic obstructive pulmonary disease) Osteoporosis Cataracts, bilateral GERD (gastroesophageal reflux disease) Inflammatory bowel disease Colostomy in place (HCC) Diverticulosis Chronic kidney disease Colon polyp [...] materials from doctor or pharmacy Never 10/31/2023 [facility] Utilities Answer Date Recorded In the past 12 months has e [employer], gas, oil, or water [employer] threatened to shut off services in your [...] often do you attend chur ch or christian services? Never 05/31/2023 Do you belong to [...] place to sleep or slept in a mcc (including now)? No 05/31/2023 Personal Safety Answer Date Recorded Have you ever been in or are you currently in a harmful physical or emotional relationship or is someone making you feel afraid or unsafe? 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 Gender Identity Not on file Sexual Orientation [...] A M CDT Height 156.2 cm (5' 1.5) 01/24/2024 9:36 AM CDT Body Mass Index 29.59 01/24/2024 9:36 AM CDT Plan of Treatment Health Maintenance Due Date Last Done Comments Breast Cancer Screening-Mammogram 1952 Depression Screening 1952 Hepatitis C Screening 1952 DTaP/Tdap/Td Vaccine (1 - Tdap) 1963 Hepatitis B Screening 1970 Zoster Vaccine (1 of 2) 1971 Lung Cancer Screening 2002 Pneumococcal vaccine 65+ (3 of 3 - PCV20 or PCV21) 10/06/2016 08/11/2016, 12/11/2008 Well Visit 65+ 2017 Covid-19 Vaccine (5 - 2023-2 5 season) 2024 09/01/2022, 05/21/2021, 10/30/2020, Additional history exists Osteoporosis Screening-Bone Density Scan 10/17/2024 10/17/2022 Fall Risk Assessment 12/14/2024 12/15/2023 Influenza Vaccine (#1) 2025 , 05/26/2022, 05/21/2021, Additional history exists Colon Cancer Screening-Colonoscopy 12/10/2033 12/11/2023, 11/16/2023, 11/16/2023 Medical Devices Implanted Type Area [employer] Device Identifier Shelf Expiration Date Model / Serial / Lot [employer] Stent Ureteral Set Double Pigtail Radiopaque Tip Universa [id number] Hydrophilic Coated [id number] - Sn/A - [id number] Implanted:Qty: 1 on 12/12/2023 by Rishi Hendrix MD at [facility] Stent Left: Ureter [employer] 03/22/2026 [id number] / N/A / [id number] Procedures Procedure Name Priority Date/Time Associated Diagnosis Comments CT VIRTUAL COLONOSCOPY DIAGNOSTIC WO CONTRAST Schedule Routine, Read Routine (OP Routine) 12/11/2023 9:10 AM CDT Colostomy in place (HCC) History of diverticulitis from Last 3 [...] Most Recently Relevant to Health Maintenance Insurance [facility] MEDICARE [facility] MEDICARE [employer]ET[employer] MEDICARE A[employer] MEDICARE Advance Directives For more information, please contact: [phone] * Full Code (Latest Code Status on [...] 7:46 AM 05/31/2023 4:55 PM Care Teams Survey Engineer Relationship Specialty Start Date End Date Omkar Allison MD [address] [place] [address] PCP - General Internal Medicine 05/05/23 [place] [address] [address] [place] [address] Surgeon Trauma Surgery 05/05/23 [place] [address] [address] [place] [address] Consulting Physician Nephrology 05/05/23 Angel Yan MD [address] [facility] [phone] [place] [address] Surgeon Colon and Rectal Surgery 10/19/23
[2025-03-24 10:00] LABS: Hematocrit 44.0 % (37.0-47.0); Hemoglobin 13.9 g/dL (12.0-15.0); Immature Granulocyte Percent A 0.2 % (0-0.5); Lymphocytes Absolute Auto 1.25 K/mm3 (0.9-3.2); Mean Corpuscular HGB Conc 31.6 g/dl (32-36); Mean Corpuscular Hemoglobin 27.8 pg (26-34); Mean Corpuscular Volume 88.0 fl (80-100); Nucleated Red Blood Cells Absolute Auto 0.000 K/mm3 (0.0-0.012); Nucleated Red Blood Cells Perc 0.0 % (0.0-0.2); Platelet Count Result 190 k/mm3 (150-375); Red Blood Count 5.00 M/mm3 (4.2-5.4); White Blood Count 5.1 K/mm3 (4.5-10.0)
[2025-03-24 10:21] LABS: Alanine Aminotransferase 16 U/L (6-35); Albumin Level 3.7 g/dL (3.5-5.1); Alkaline Phosphatase 93 U/L (38-126); Anion Gap 5 mmol/L (4-12); Aspartate Amino Transferase 26 U/L (14-36); Bilirubin,Total 0.7 mg/dL (0.2-1.3); Blood Urea Nitrogen 10 mg/dL (7-17); CRP 0.6 mg/dL (<1.0); Calcium 9.7 mg/dL (8.4-10.2); Carbon Dioxide 26 mmol/L (22-30); Chloride 104 mmol/L (98-107); Estimated Glomerular Filt Rate > 60; Glucose 105 mg/dL (65-110); Potassium 3.4 mmol/L (3.4-5.0); Sodium 135 mmol/L (137-145); Total Protein 7.3 g/dL (6.3-8.2)
== END 2025-03-24 09:19 | disposition home or self-care (01) ==
PROVIDERS: PCP Internal Medicine; Referring Provider Internal Medicine; Visit Provider Internal Medicine Nephrology
DX: M06.09 Rheumatoid arthritis without rheumatoid factor, multiple sites (principal); N18.2 Chronic kidney disease, stage 2 (mild); Z79.899 Other long term (current) drug therapy
CPT/HCPCS: 36415; 80053; 84100; 85025; 85652; 86140

== ENCOUNTER 2025-06-18 09:56 | Outpatient (CLI) | payer MEDICARE, SELFPAY ==
--- OUTSIDE RECORDS SUMMARY | 2025-06-10 03:40 | XMS_ITS | Continuity of Care Document ---
Author Organization [facility] Address [address] [place] [address] Phone Care Team Providers Care Junior Account Manager Name Role Phone Lia DOLL, FACC, Brianna Unavailable Unavail able Allergies, Adverse Reactions, Alerts Substance Reaction Status Criticality No Known Allergies Active No Inform ation Medications Medication Instructions Dosage Effective Dates (start - stop) Status Comments hydroxychloroquine 200 mg tablet take 1 pill twice a day - Active amlodipine 10 mg tablet take 1 pill a day 025 - Active lisinopril 10 mg tablet take 1 pill a day 025 - Active leflunomide 20 mg tablet take 1 pill a day 2024 - Active Prolia 60 mg/mL subcutaneous syringe one shot every 6 months - Active amiodarone 200 mg tablet take 1 tablet b y oral route every day 200 MG - Active duloxetine 30 mg capsule,delayed release TAKE 1 CAPSULE BY MOUTH EVERY DAY FOR 90 DAYS - Active zolpidem 10 mg tablet TAKE 1 TABLET BY MOUTH EVERY DAY NEEDED . NO ALCOHOL, NO DRIVING, OR WITH SEDATING MEDS - Active omeprazole 40 mg capsule,delayed release TAKE 1 CAPSULE BY MOUTH DAILY NEEDED FOR CHRONIC GERD - Active hydroxychloroquine 200 mg tablet - No Longer Active amlodipine 10 mg tablet - No Longer Active alprazolam 0.25 mg tablet TAKE 1 TABLET BY MOUTH EVERY DAY NEEDED FOR 15 DAYS - No Longer Active leflunomide 20 mg tablet Mar - No Longer Active lisinopril 10 mg tablet - No Longer Active Prolia 60 mg/mL subcutaneous syringe - No Longer Active Procedures Procedure Date Complex e/m visit add on OFFICE/OUTPATIENT VISIT, EST ELECTROCARDIOGRAM, COMPLETE Complex e/m visit add on OFFICE/OUTPATIENT VISIT, EST ELECTROCARDIOGRAM, COMPLETE TTE W/DOPPLER, COMPLETE REMOTE 30 DAY ECG REV/REPORT REMOTE 30 DAY ECG TECH SUPP Advance Directives Directive Yes / No Effective Date File Name No Information Encounters Encounter Description Practice Location Reason(s) For Visit Diagnoses Date Provider Providers Copied on Encounter OFFICE/OUTPA TIENT VISIT, [facility], [address] [place] [address], [id number] , [place] tel: [phone] [facility] follow up (chief complaint) Essential (primary) hypertensionCADA fibEKG: right bundle branch block 5 Lia Reed. [address] [place], [place], [id number] , [place]. tel: [phone] Referring Provider: Tariq carrillo, [address] [facility] [address], [place], [address]. tel:[phone] OFFICE/OUTPA TIENT VISIT, [facility], [facility] [place], [place], [id number] , [place] tel:[phone] [facility] follow up (chief complaint) A fibCADEssential (primary) hypertension 5 Nat Cordero. [address] , [address], [place], [place], [id number] , [place]. tel: [phone] Referring Provider: Tariq carrillo, [address], [place], [address]. tel:[phone] [facility], [address] [place] [address], [id number] , tel: [phone] [facility] No Information 5 Nat Casiano [address], [address] [place] [address], [id number] , [place]. tel: [phone] [facility], [address] [place] [address], [id number] , tel: [phone] [facility] No Information 5 Nat Casiano [address], [address] [place] [address], [id number] , [place]. tel: [phone] Referring Provider: Tariq carrillo, [address], [place], [facility]. tel:[phone] [facility], [address] [place] [address], [id number] , tel: [phone] [facility] No Information 5 Nat Casiano [address] , [address] [place] [address], [id number] , [place]. tel: [phone] Referring Provider: Tariq carrillo, [address], [place], [facility]. tel:[phone] [facility], [address] [place] [address], [id number] , tel: [phone] [facility] A fibRight BBBPrediabetesThorac ic aortic ectasiaHyperlipidemi a, unspecifiedNicotine dependence, unspecified, uncomplicatedCADObes ity, unspecifiedEssential (primary) hypertension [address], [address] [place] [address], [id number] , [place]. tel: [phone] Family History Family Member Type Diagnosis Age At Onset Mother Problem (finding) Alive and well Father Problem (finding) Cardiovascular disease Payers Payer name Insurance type Covered constitution party ID Authoriza tironna(s) AETNA MEDICARE [place] [id number] Social History Type Description Quantity Date Captured Comments Alcohol Use Details Caffeine Use Details Unknown Tobacco Use Status Ex-cigarette smoker 025 Smoking Status Former smoker Smoking Tobacco Use Details Cigarette: Age Stopped: 71, Years Used 47 Cigarette: 2 Packs per day, Pack Year: 90 Sex Female Vital Signs Date / Time: Height Weight BMI Pulse Rate Blood Pressure Temperature Respiratory Rate Body Surface Area Head Circumference Head Circ. Percentile Wt./Julio. Percentile BMI percentile Pulse Ox Inhaled Ox 9:55 AM 61.00 in 83.915 kg (185.00 lbs) 34.9 6 kg/m eter (2) 75 /min 139/106 mm[Hg] 95 % Chief Complaint And Reason For Visit From encounter dated '06/10/2025 09:40'. follow up (chief complaint) Reason For Referral Reason For Referral No Information History Of Present Illness Encounter Date Complaint History Of Prese nt Illness follow up follow up Functional Status Date Functional Assessmen t No Information Instructions Date Instruction Additional Infor mation No Information Assessments Type Assessment Date assessment Essential (primary) hypertension assessment CAD assessment A fib assessment EKG: right bundle branch block O Patient Care Teams Name Effective Dates (start - stop) Status Members No Information
[2025-06-18 10:30] LABS: Hematocrit 44.2 % (37.0-47.0); Hemoglobin 13.6 g/dL (12.0-15.0); Immature Granulocyte Percent A 0.4 % (0-0.5); Lymphocytes Absolute Auto 1.00 K/mm3 (0.9-3.2); Mean Corpuscular HGB Conc 30.8 g/dl (32-36); Mean Corpuscular Hemoglobin 27.3 pg (26-34); Mean Corpuscular Volume 88.6 fl (80-100); Nucleated Red Blood Cells Absolute Auto 0.000 K/mm3 (0.0-0.012); Nucleated Red Blood Cells Perc 0.0 % (0.0-0.2); Platelet Count Result 198 k/mm3 (150-375); Red Blood Count 4.99 M/mm3 (4.2-5.4); White Blood Count 5.2 K/mm3 (4.5-10.0)
[2025-06-18 11:05] LABS: Alanine Aminotransferase 14 U/L (6-35); Albumin Level 3.6 g/dL (3.5-5.1); Alkaline Phosphatase 95 U/L (38-126); Anion Gap 3 mmol/L (4-12); Aspartate Amino Transferase 24 U/L (14-36); Bilirubin,Total 0.7 mg/dL (0.2-1.3); Blood Urea Nitrogen 10 mg/dL (7-17); CRP < 0.5 mg/dL (<1.0); Calcium 8.2 mg/dL (8.4-10.2); Carbon Dioxide 26 mmol/L (22-30); Chloride 105 mmol/L (98-107); Estimated Glomerular Filt Rate > 60; Glucose 94 mg/dL (65-110); Potassium 3.8 mmol/L (3.4-5.0); Sodium 134 mmol/L (137-145); Total Protein 6.8 g/dL (6.3-8.2)
[2025-06-18 11:13] LABS: Add Urine Microscopic? YES; Appearance Urine Clear (Clear); Glucose Urine UA Negative (Negative); Leukocyte Esterase Ur Negative LEU/UL (Negative); Nitrate Urine Negative (Negative); Non Pathogenic Casts 0-2; Specific Grav Ur 1.016 (1.001-1.035)
--- OUTSIDE RECORDS SUMMARY | 2025-06-19 09:44 | XMS_ITS | Encounter Summary ---
Author Organization [facility] Healthcare Address [address] [place] [address] Care Team Providers Care Metal Drilling Machine Operator Name Role Phone Dario Leone MD Unavailable [phone] Mila Mishra MD Unavailable [phone] Omkar Allison MD Primary Care Provide r Angel Yan MD Unavailable [phone] Encounter Details Date Type Department Care Team (Late st Contact Info) Description 11/27/2023 Telephone [facility] Radiology 1 [place], [place] [id number] Jennifer Jarrell RN Social History Tobacco Use [...] materials from doctor or pharmacy Never 10/31/2023 [facility] Utilities Answer Date Recorded In the past 12 months has th e electric, gas, oil, or water [employer] threatened to shut off services in your [...] often do you attend chur ch or rastafarian services? 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 SPECIALIST Gender Identity Not on file Sexual Orientation Not on file documented as of this encounter Plan of Treatment Not on file documented as of this encounter Visit Diagnoses Not on filedocumented in this encounter Care Teams Metal Drilling Machine Operator Relationship Specialty Start Date End Date Omkar Allison MD [address] [facility] [address] [place] [id number] PCP - General Internal Medicine 05/05/23 [place] [address] [facility] [address] [facility] [address] [address] Surgeon Trauma Surgery 05/05/23 [place] [address] [address] [facility] [address] [address] Consulting Physician Nephrology 05/05/23 Angel Yan MD [address] [facility] [phone] [place], [place] [address] Surgeon Colon and Rectal Surgery 10/19/23 documented as of this encounter
--- OUTSIDE RECORDS SUMMARY | 2025-06-19 09:44 | XMS_ITS | Encounter Summary ---
Author Organization [facility] Healthcare Address [address] [place] [address] Care Team Providers Care Painter Name Role Phone Dario Leone MD Unavailable [phone] Mila Mishra MD Unavailable [phone] Omkar Allison MD Primary Care Provide r Angel Yan MD Unavailable [phone] Encounter Details Date Type Department Care Team (Late st Contact Info) Description 11/08/2023 Telephone [facility] Radiology 1 [place], [place] [id number] Jennifer Jarrell RN Social History Tobacco Use [...] materials from doctor or pharmacy Never 10/31/2023 [facility] Utilities Answer Date Recorded In the past 12 months has th e electric, gas, oil, or water [employer] threatened to shut off services in your [...] often do you attend chur ch or anabaptist services? Never 05/31/2023 Do you belong to [...] place to sleep or slept in a fci (including now)? No 05/31/2023 Personal Safety Answer Date Recorded Have you ever been in or are you currently in a harmful physical or emotional relationship or is someone making you feel afraid or unsafe? 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 TEST SPECIALIST Gender Identity Not on file Sexual Orientation Not on file documented as of this encounter Functional Status documented as of this encounter Plan of Treatment Not on file documented as of this encounter Visit Diagnoses Not on filedocumented in this encounter Care Teams Painter Relationship Specialty Start Date End Date Omkar Allison MD [address] [facility] [address] [place] [address] PCP - General Internal Medicine 05/05/23 [place] [address] [address] [facility] [address] [address] Surgeon Trauma Surgery 05/05/23 [place] [address] [address] [facility] [address], [place] [address] Consulting Physician Nephrology 05/05/23 Angel Yan MD [address] [facility] [phone] [place] [address] Surgeon Colon and Rectal Surgery 10/19/23 documented as of this encounter
--- OUTSIDE RECORDS SUMMARY | 2025-06-19 09:44 | XMS_ITS | Encounter Summary ---
Author Organization [facility] Address [address] [place] [address] Phone Care Team Providers Care Lead Etl Developer Name Role Phone Dario Leone MD Unavailable [phone] Mila Mishra MD Unavailable [phone] Omkar Allison MD Primary Care Provide r Angel Yan MD Unavailable [phone] Encounter Details Date Type Department Care Team (Late st Contact Info) Description 05/17/[address] [facility] Medicine Surgery [address] [facility] [address], [place] [address] [place] [id number] [place] [address] [address] [place] [address] Social History Tobacco Use Types [...] often do you attend chur ch or mormonism services? Never 05/01/2023 Do you belong to any clubs o r organizations such as uatsdin groups, unions, fraternal or athletic groups, or [...] place to sleep or slept in a assisted (including now)? No 05/01/2023 Comments No Sex and Gender Information Value Date Recorded Sex Assigned at Not on file Legal Sex Female 10:37 AM PROFESSIONAL NURSING ASSISTANT Gender Identity Not on file Sexual Orientation Not on file documented as of this encounter Plan of Treatment Not on file documented as of this encounter Visit Diagnoses Not on filedocumented in this encounter Care Teams Lead Etl Developer Relationship Specialty Start Date End Date Omkar Allison MD [address] [facility] [address] [place] [address] PCP - General Internal Medicine 05/05/23 [place] [address] [address] [place] [address] Surgeon Trauma Surgery 05/05/23 [place] [address] [address] [place] [address] Consulting Physician Nephrology 05/05/23 Angel Yan MD [address] [facility] [phone] [place] [address] Surgeon Colon and Rectal Surgery 10/19/23 documented as of this encounter
--- OUTSIDE RECORDS SUMMARY | 2025-06-19 09:44 | XMS_ITS | Clinical Summary ---
Author Organization [facility] Address [address] [place] [address] Care Team Providers Care Track Rider Name Role Phone Tariq Allison MD Primary [...] Encounters Date Type Department Care Team Description 06/04/2025 External Device Data STL ABSTRACTION Provider, Abstract 06/03/2025 External Device Data ST[facility] ABSTRACTION Provider, Abstract 05/06/2025 External Device Data ST[facility] ABSTRACTION Provider, Abstract 04/29/2025 External Device Data STL ABSTRACTION Provider, Abstract [...] st Contact Info) Description 07/18/2025 12:00 PM PERSONNEL RECRUITER Office Visit [facility] Oncology and Hematology [facility] [address] [facility] [address] [place] [address] Judson Higginbotham MD [address] [facility] [address] [place] [address] Health Maintenance Due Date Last Done Comments DTAP/TDAP/TD VACCINES (1 - Tdap) 1971 ZOSTER VACCINE (1 of 2) 1971 BREAST CANCER SCREENING 1992 FIT-DNA Q 3 years 1997 FIT/FOBT Q 1 year 1997 Lung Cancer Screening 2002 RSV VACCINE (60+ or ) (1 - Risk 50-74 years 1-dose series) 2002 OSTEOPOROSIS SCREENING 2017 INFLUENZA VACCINE (#1) 2025 , 05/31/2023, 05/26/2022, Additional history exists COVID-19 Vaccine (6 - Pfizer risk 2023- season) 2025 04/20/2024, 09/01/2022, 05/21/2021, Additional history exists Flex Sig/CT Colonography Q 5 years 12/10/20282023 COLORECTAL SCREENING 11/15/2033 11/16/2023, 11/16/19 24 Colorectal Cancer Screening 11/15/2033 PNEUMOCOCCAL VACCINE 50+ YEARS Completed 0 04/20/2024, 08/11/2016, 12/11/2008 Insurance AETNA PPO MCR Care Teams Track Rider Relationship Specialty Start Date End Date Tariq Allison MD PCP - General Internal Medicine 04/03/24
--- OUTSIDE RECORDS SUMMARY | 2025-06-19 09:44 | XMS_ITS | Encounter Summary ---
Author Organization [facility] Healthcare Address [address] [place] [address] Care Team Providers Care Manager Software Name Role Phone Dario Leone MD Unavailable [phone] Mila Mishra MD Unavailable [phone] Omkar Allison MD Primary Care Provide r Angel Yan MD Unavailable [phone] Encounter Details Date Type Department Care Team (Late st Contact Info) Description 11/15/2023 Telephone [facility] Radiology 1 [place], [place] [id number] Jennifer Jarrell RN Social History Tobacco Use [...] materials from doctor or pharmacy Never 10/31/2023 [facility] Utilities Answer Date Recorded In the past 12 months has th e electric, gas, oil, or water [employer] threatened to shut off services in your [...] often do you attend chur ch or jain services? Never 05/31/2023 Do you belong to any clubs o r organizations such as episcopal groups, unions, fraternal or athletic groups, or [...] place to sleep or slept in a half-way (including now)? No 05/31/2023 Personal Safety Answer Date Recorded Have you ever been in or are you currently in a harmful physical or emotional relationship or is someone making you feel afraid or unsafe? 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 Gender Identity Not on file Sexual Orientation Not on file documented as of this encounter Functional Status documented as of this encounter Plan of Treatment Not on file documented as of this encounter Visit Diagnoses Not on filedocumented in this encounter Care Teams Manager Software Relationship Specialty Start Date End Date Omkar Allison MD [address] [facility] [address] [place] [address] PCP - General Internal Medicine 05/05/23 [place] [address] [address] [facility] [address], [place] [address] Surgeon Trauma Surgery 05/05/23 [place] [address] [address] [facility] [address], [place] [address] Consulting Physician Nephrology 05/05/23 Angel Yan MD [address] [facility] [phone] [place] [address] Surgeon Colon and Rectal Surgery 10/19/23 documented as of this encounter
--- OUTSIDE RECORDS SUMMARY | 2025-06-19 09:44 | XMS_ITS | Clinical Summary ---
Author Organization [facility] Address [address] [place] [address] Care Team Providers Care Security Guard Dispatcher Name Role Phone Dario Leone MD Unavailable [phone] Mila Mishra MD Unavailable [phone] Omkar Allison MD Primary Care Provide r Angel Yan MD Unavailable [phone] Allergies No known active allergies Medications omeprazole [...] materials from doctor or pharmacy Never 10/31/2023 [facility] Utilities Answer Date Recorded In the past 12 months has e [employer], gas, oil, or water [employer] threatened to shut off services in your [...] often do you attend chur ch or restorationist services? Never 05/31/2023 Do you belong to any clubs o r organizations such as congregational groups, unions, fraternal or athletic groups, or [...] place to sleep or slept in a custodial (including now)? No 05/31/2023 Personal Safety Answer Date Recorded Have you ever been in or are you currently in a harmful physical or emotional relationship or is someone making you feel afraid or unsafe? Denies 12/12/2023 Comments No Sex and Gender Information Value Date Recorded Sex Assigned at Not on file Legal Sex Female 10:37 AM WHARF BUILDER Gender Identity Not on file Sexual Orientation [...] 10/06/2016 08/11/2016, 12/11/2008 Well Visit 65+ 2017 Osteoporosis Screening-Bone Density Scan 10/17/2024 10/17/2022 Fall Risk Assessment 12/14/2024 12/15/2023 Covid-19 Vaccine (5 - 2024-2 6 season) 2025 09/01/2022, 05/21/2021, 10/30/2020, Additional history exists Influenza Vaccine (#1) 2025 , 05/26/2022, 05/21/2021, Additional history exists Colon Cancer Screening-Colonoscopy 12/10/2033 12/11/2023, 11/16/2023, 11/16/2023 Medical Devices Implanted Type Area Camera Machinist Device Identifier Shelf Expiration Date Model / Serial / Lot [employer] Stent Ureteral Set Double Pigtail Radiopaque Tip [employer] [id number] Hydrophilic Coated [id number] - Sn/A - [id number] Implanted:Qty: 1 on 12/12/2023 by Rishi Hendrix MD at [facility] Stent Left: Ureter [employer] 03/22/2026 [id number] / N/A / [id number] Procedures Procedure Name Priority Date/Time Associated Diagnosis [...] Most Recently Relevant to Health Maintenance Insurance AETNA MEDICARE [facility] MEDICARE AETNA MEDICARE AETNA MEDICARE Advance Directives For more information, please contact: [phone] * Full Code (Latest Code Status on [...] 7:46 AM 05/31/2023 4:55 PM Care Teams Security Guard Dispatcher Relationship Specialty Start Date End Date Omkar Allison MD [address] [place] [address] PCP - General Internal Medicine 05/05/23 [place] [address] [address] [facility] [address] [place] [address] Surgeon Trauma Surgery 05/05/23 [place] [address] [address] [facility] [address] [place] [address] Consulting Physician Nephrology 05/05/23 Angel Yan MD [address] [facility] [phone] [place] [address] Surgeon Colon and Rectal Surgery 10/19/23
--- OUTSIDE RECORDS SUMMARY | 2025-06-19 09:44 | XMS_ITS | Encounter Summary ---
Author Organization [facility] Healthcare Address [address] [place] [address] Care Team Providers Care Revenue Investigator Name Role Phone Dario Leone MD Unavailable [phone] Mila Mishra MD Unavailable [phone] Omkar Allison MD Primary Care Provide r Angel Yan MD Unavailable [phone] Encounter Details Date Type Department Care Team (Late st Contact Info) Description 11/13/2023 Telephone [facility] Radiology 1 [place], [place] [id number] Jennifer Jarrell RN Social History Tobacco Use [...] materials from doctor or pharmacy Never 10/31/2023 [facility] Utilities Answer Date Recorded In the past 12 months has th e electric, gas, oil, or water [employer] threatened to shut off services in your [...] often do you attend chur ch or quaker services? Never 05/31/2023 Do you belong to any clubs o r organizations such as yarsani groups, unions, fraternal or athletic groups, or [...] on file Legal Sex Female 10:37 AM HOSPICE NURSE Gender Identity Not on file Sexual Orientation Not on file documented as of this encounter Functional Status documented as of this encounter Plan of Treatment Not on file documented as of this encounter Visit Diagnoses Not on filedocumented in this encounter Care Teams Revenue Investigator Relationship Specialty Start Date End Date Omkar Allison MD [address] [facility] 15 [place] [address] PCP - General Internal Medicine 05/05/23 [place] [address] [address] [facility] [address] [address] Surgeon Trauma Surgery 05/05/23 [place] [address] [address] 1 [facility] [address], [place] [address] Consulting Physician Nephrology 05/05/23 Angel Yan MD [address] [facility] [phone] [place] [address] Surgeon Colon and Rectal Surgery 10/19/23 documented as of this encounter
== END 2025-06-18 09:57 | disposition home or self-care (01) ==
PROVIDERS: PCP Internal Medicine; Visit Provider Internal Medicine
DX: M06.09 Rheumatoid arthritis without rheumatoid factor, multiple sites (principal); Z79.899 Other long term (current) drug therapy
CPT/HCPCS: 36415; 80053; 81001; 84100; 85025; 85652; 86140